=== PATIENT | female | born 1950 | race Caucasian/White ===

== ENCOUNTER 2016-12-12 09:57 | Inpatient (IN) | payer MEDICARE ==
[2016-12-12] VITALS (7 sets, daily range): BP systolic 99–193; BP diastolic 47–80
[~2016-12-12] VITALS: Ht 157.5 cm; Wt 157.2 kg
[2016-12-12] MEDS ORDERED: FUROSEMIDE 40 MG/4 ML VIAL ONE (10:10)
[2016-12-12 10:26] LABS: BGAS PH 7.34 (7.35-7.45)
[2016-12-12] MEDS ORDERED: ASPIRIN 81 MG TAB.CHEW PO ONE (10:30)
[2016-12-12] MEDS ORDERED: FUROSEMIDE 40 MG/4 ML VIAL IVP ONE (10:30)
--- NOTE | 2016-12-12 10:39 | RAD ---
EXAM: Chest, single view. HISTORY: Shortness of breath. COMPARISON: None. FINDINGS: A frontal view of the chest is obtained. There is mild diffuse lower lobe predominant increased interstitial opacity. There may be trace pleural effusions. There is no pneumothorax. There is enlargement of the cardiac silhouette, a component of which is due to portable technique. There is a cardiac pacemaker with leads in expected position. IMPRESSION: 1. Diffuse lower lobe predominant increased interstitial opacity suggesting trace congestion. The possibility of trace pleural effusions and basilar atelectasis is not excluded. 2. Mild enlargement of the cardiac silhouette, a component of which is likely due to portable technique.
--- NOTE | 2016-12-12 10:43 | EKG ---
[address] [address] Test Date: 2016-12-12 Test Time: 10:41:52 Pat Name: LUIS PISANO Department: Room: Gender: F International Accountant: : 1950 Requested By: CAROLE MCGOWAN Order Number: [id number] Reading MD: Measurements Intervals [place] Rate: 164 P: NM: QRS: -72 QRSD: 218 T: 118 QT: 306 QTc: 510 Interpretive Statements ATRIAL FIB./FLUTTER WITH RAPID VENTRICULAR RESPONSE ABNORMAL LEFT AXIS DEVIATION NON SPECIFIC INTRAVENTRICULAR BLOCK QRS(T) CONTOUR ABNORMALITY CONSISTENT WITH ANTEROLATERAL INFARCT PROBABLY OLD CONSIDER INFERIOR MYOCARDIAL DAMAGE RI6.01 Unconfirmed report No previous ECG available for comparison
--- NOTE | 2016-12-12 10:43 | PHYS DOC ---
General Chief Complaint: SHORTNESS OF BREATH Stated Complaint: DIFFICULTY BREATHING, HX CHF Time Seen by MD: 10:11 Source: patient, EMS Exam Limitations: clinical condition Problems: History of Present Illness Initial Comments Pt is 66/F h/o CHF to ED via EMS for respiratory distress. Pt reports past few weeks she's had increasing lower extremity swelling and mild PEREZ. Pt states that for the past 2 days she's had yellow productive cough , with post-tussive emesis x 1 at home this am. Shortness of breath described as mild last night, this morning developed acute severe SOB. EMS called, and on arrival found pt 84% on RA, improved to 93% with CPAP. Pt changed to 3L O2 NC on ED arrival maintaining sats 93-96%. Denies fever/chills/cp/diaphoresis/ arm or neck symptoms. 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/Duration: getting worse, changing over time Severity: severe Modifying Factors: worse with movement, improves with other Associated Symptoms: cough, malaise, nausea/vomiting, shortness of breath, weakness Allergies: Coded Allergies: codeine (Verified Allergy, Unknown, 08/13/15) prednisone (Verified Adverse Reaction, Intermediate, 08/13/15) Past Medical History Medical History: other (HLP, HTN, CHF, morbid obesity, severe OA involving left hip/right knee, arrhythmia) Surgical History: pacemaker, other (colectomy with colostomy 2nd to enteric- vesicular fistula 2012) Social History Smoker: non-smoker Alcohol: none Drugs: none Review of Systems Constitutional: denies chills, denies diaphoresis, denies fever, malaise, weakness Respiratory: see HPI Cardiovascular: denies chest pain, edema, denies palpitations, denies syncope Gastrointestinal: denies abdominal pain, denies diarrhea, denies nausea, vomiting Genitourinary: denies discharge, denies dysuria, frequency, denies hematuria, denies pain Musculoskeletal: see HPI, denies back pain, denies neck pain Psychiatric/Neurological: denies headache, denies numbness, denies paresthesia Physical Exam General Appearance: severe distress, obese Eyes: bilateral eye normal inspection, bilateral eye PERRL, bilateral eye EOMI Ear, Nose, Throat: hearing grossly normal, normal ENT inspection, normal pharynx Neck: non-tender, supple Respiratory: chest non-tender, respiratory distress, accessory muscle use, other (decreased BS b/l bases with rales b/l, ) Cardiovascular: normal peripheral pulses, regular rate, rhythm Gastrointestinal: non tender, soft Back: no CVA tenderness, no vertebral tenderness Extremities: normal range of motion, no calf tenderness, other (3+ pitting LE edema) Neurologic/Psychiatric: adobe layer helper II-XII nml as tested, no motor/sensory deficits, alert, oriented x 3, other (anxious) Skin: warm/dry, pallor Orders, Labs, Meds EKG: ventricular paced c/w prior study 01/01/11 PATIENT: LUIS PISANO ACCOUNT: [id number] : 1950 LOCATION: ER AGE: 66 SEX: F EXAM STATUS: REG ER ORD. PHYSICIAN: CAROLE MCGOWAN DO REASON: chf PROCEDURE: PORTABLE CHEST 1V EXAM: Chest, single view. HISTORY: Shortness of breath. COMPARISON: None. FINDINGS: A frontal view of the chest is obtained. There is mild diffuse lower lobe predominant increased interstitial opacity. There may be trace pleural effusions. There is no pneumothorax. There is enlargement of the cardiac silhouette, a component of which is due to portable technique. There is a cardiac pacemaker with leads in expected position. IMPRESSION: 1. Diffuse lower lobe predominant increased interstitial opacity suggesting trace congestion. The possibility of trace pleural effusions and basilar atelectasis is not excluded. 2. Mild enlargement of the cardiac silhouette, a component of which is likely due to portable technique. DICTATED AND SIGNED BY: VASILIY GALLO MD DATE: 12/12/16 1035 CC: LUIS BADILLO MD; CAROLE MCGOWAN DO ~ ABG: ph 7.337, pCO2 43, pO2 80, HCO3 23.1, sat 95% fiO2 36 d-dimer 1.42, BUN 26, Cr 1.3, Trop I 0.018, BNP 659, UA unremarkable Pt arrived to ED in respiratory distress, duoneb/lasix 40mg IV on arrival with > 1500cc urine output. Pt feeling much better after diuresis, breath sounds improved and pt maintains >90% on room air. I discussed pt with Dr Hays who accepts ICU admission for further serial lab monitoring, diuresis, DVT workup. IMPRESSIONS: CHF exacerbation Respiratory distress ARF elevated d-dimer morbid obesity Departure Disposition: ADMITTED INPATIENT Diagnosis: CHF exacerbation, respiratory distress, ARF Condition: STABLE Additional Instructions: ICU admission Dr Hays is accepting. CAROLE MCGOWAN DO December 12, 2016 10:43
[2016-12-12] MEDS ORDERED: IPRATRPIUM/ALBUTEROL 0.5/2.5MG 3 ML NEBU. NEB ONE (11:15)
[2016-12-12 11:20] LABS: BASO % 1 % (0-3); EOS # 0.1 x10^3/uL (0.0-0.7); EOS % 1 % (0-3); HEMATOCRIT 38.3 % (36.0-47.0); HEMOGLOBIN 12.8 g/dL (12.0-15.5); LYMPH # 0.6 x10^3/uL (1.0-4.8); LYMPH % 7 % (24-48); MEAN CORPUSCULAR HEMOGLOBIN 29 pg (25-35); MEAN CORPUSCULAR HGB CONC 34 g/dL (31-37); MEAN CORPUSCULAR VOLUME 87 fL (79-100); MONO # 0.6 x10^3/uL (0.0-1.1); MONO % 6 % (0-9); NEUT # 7.9 x10^3uL (1.8-7.7); NEUT % 86 % (31-73); PLATELET COUNT 177 x10^3/uL (140-400); RED BLOOD COUNT 4.43 x10^6/uL (3.50-5.40); RED CELL DISTRIBUTION WIDTH 14.9 % (11.5-14.5); WHITE BLOOD COUNT 9.2 x10^3/uL (4.0-11.0)
[2016-12-12 11:30] LABS: BACTERIA,URINE 0 /HPF (0-FEW); BILIRUBIN,URINE NEG (NEG); CLARITY,URINE CLEAR; COLOR,URINE STRAW; GLUCOSE,URINE NEG (NEG); NITRITE,URINE NEG (NEG); RBC,URINE OCC /HPF (0-2); SQUAMOUS EPITHELIAL CELL,UR OCC /LPF; UROBILINOGEN,URINE 0.2 mg/dL (0.2 mg/dL); WBC,URINE OCC /HPF (0-4)
[2016-12-12 11:45] LABS: ALBUMIN 3.8 g/dL (3.4-5.0); ALBUMIN/GLOBULIN RATIO 0.9 (1.0-1.7); CALCIUM 9.4 mg/dL (8.5-10.1); CREATININE 1.3 mg/dL (0.6-1.0); GFR 40.9; MAGNESIUM 1.9 mg/dL (1.8-2.4); POTASSIUM 3.5 mmol/L (3.5-5.1); TOTAL BILIRUBIN 0.5 mg/dL (0.2-1.0); TOTAL PROTEIN 8.1 g/dL (6.4-8.2)
--- NOTE | 2016-12-12 12:25 | ACF ---
Admission Criteria Forms HEART FAILURE: COMMON COMPLICATIONS Clinical Indications for Inpatient Care (Place 'X' for any and all applicable criteria): Ongoing inpatient care may be indicated for heart failure with ANY ONE of the following (1)(2)(3)(4)(5): [ ]I. Ongoing need for care for primary condition requiring frequent therapy adjustments because of changes in cardiac function (eg, drug dosage changes for drugs that are renally metabolized) [ ]II. New-onset heart failure [ ]III. Heart failure with decreased urine output not responsive to attempts to optimize volume status [ ]IV. Acute cardiac ischemia causing or associated with failure [X]V. Complications of heart failure, including ANY ONE of the following: [ ]a) Pericardial effusion [ ]b) Symptomatic pleural effusion [ ]c) O2 saturation <90% or PO2 < 60 mm Hg (8.0 kPa) on room air or require baseline supplemental O2 [ ]d) Tachypnea [X]e) Dyspnea [ ]f) Syncope [ ]g) Change in mental status [ ]h) Acute renal insufficiency that is severe (reduction of more than 50% in estimated glomerular filtration rate from baseline) or progressive reduction of more than 25% in estimated glomerular filtration rate from baseline, with creatinine continuing to rise) [ ]i) Hemodynamic instability [ ]j) Anasarca [ ]k) Clinically significant metabolic abnormalities due to heart failure (eg, new-onset metabolic acidosis) Extended stay beyond goal length of stay for primary condition may be needed until ALL of the following are present(1)(3): [ ]a) Stable and effective diuretic regimen established (or patient on stable dialysis regimen if in chronic renal failure) [ ]b) Breathing comfortably at rest [ ]c) Saturation of arterial oxygen greater than 90% or at acceptable baseline [ ]d) Pulmonary edema absent or improved [ ]e) Hemodynamic stability [ ]f) Volume status acceptable on oral medication [ ]g) Peripheral or sacral edema absent or improved [ ]h) Renal function stable and manageable at a lower level of care [ ]i) Complications (eg, pleural effusion) resolved or manageable at a lower level of care [ ]j) Patient or caregiver has received written discharge instructions or educational material addressing activity level, diet, discharge medications, follow-up appointment, weight monitoring, and what to do if symptoms worsen The original [email or web address] content created by [employer] has been revised. The portions of the content which have been revised are identified through the use of italic text or in bold, and [facility] has neither reviewed nor approved the modified material.All other unmodified content is copyright [facility]. Please see references footnoted in the original [facility] edition 2016 Admission Criteria Met?: Yes LEONELA LOPES December 12, 2016 12:25
[2016-12-12] MEDS ORDERED: ONDANSETRON PF 4 MG/2 ML VIAL. IV PRN (13:00)
[2016-12-12] MEDS ORDERED: ACETAMINOPHEN 325 MG TABLET PO PRN (13:00)
[2016-12-12] MEDS ORDERED: CONTRAST GIVEN MC PRN (15:00)
[2016-12-12] MEDS ORDERED: ACET500T68 PO (15:03)
[2016-12-12] MEDS ORDERED: LORA10TA3 PO (15:05)
[2016-12-12] MEDS ORDERED: POTA20TA4 PO (15:06)
[2016-12-12] MEDS ORDERED: FURO-68 PO (15:06)
[2016-12-12] MEDS ORDERED: ATOR20TA58 PO (15:08)
[2016-12-12] MEDS ORDERED: AMIT10TA PO (15:12)
[2016-12-12] MEDS ORDERED: LOSA25TA4 PO (15:12)
[2016-12-12] MEDS ORDERED: IOHEXOL 300 MG/ML 75 ML VIAL. IV ONE (15:15)
[2016-12-12] MEDS ORDERED: AMITRIPTYLINE HCL 10 MG TABLET PO PRN (15:45)
[2016-12-12] MEDS: IPRATRPIUM/ALBUTEROL 0.5/2.5MG 3 ML NEBU. NEB SCH ×2 (16:00→22:24)
[2016-12-12] MEDS ORDERED: ALLO100T PO (16:14)
[2016-12-12] MEDS: ENOXAPARIN ** NOTE DOSE ** SYRINGE SQ SCH (16:24)
[2016-12-12] MEDS ORDERED: LOSARTAN 25 MG TABLET. PO ONE (16:30)
[2016-12-12] MEDS ORDERED: FUROSEMIDE 20 MG/2 ML VIAL IVP SCH (18:00)
--- NOTE | 2016-12-12 18:00 | RAD ---
Carotid doppler ultrasound History: History of pulmonary embolism (no other provided history) Multiple grayscale, color, and duplex spectral analysis waveform sonographic images were acquired of the carotid, subclavian, and vertebral arteries. Comparison: None Findings: RIGHT: PSV cm/sec EDV cm/sec Common carotid artery 58 Maximal internal carotid artery 58 19 External carotid artery 45 Vertebral artery 49 ICA/CCA ratio 1 LEFT: PSV cm/sec EDV cm/sec Common carotid artery 28 Maximum internal carotid artery 60 12 External carotid artery 48 Vertebral artery 21 ICA/CCA ratio 2.1 Velocities used to determine stenosis are known to correlate with NASCET angiographic criteria. There is antegrade flow in the bilateral vertebral arteries. There is tortuosity of the vessels. No significant focal stenosis is demonstrated on grayscale or color images. While there is elevated left ICA to CCA ratio, this is primarily from lower velocity of the left common carotid artery, left internal carotid artery peak systolic velocity not significantly elevated. No significant plaque is demonstrated. Impression: 1. There is no evidence of a hemodynamically significant stenosis. Tortuosity of the vessels limits evaluation. Electronically signed by: Cole Fish MD (12/12/2016 5:56 PM)
--- NOTE | 2016-12-12 18:01 | RAD ---
Bilateral lower extremity venous doppler ultrasound History: Pulmonary embolism Comparison: None Findings: Multiple grayscale, color, and duplex spectral analysis sonographic images were acquired of the bilateral lower extremity veins to evaluate for the presence of DVT. Compression images for exam are limited due to patient's body habitus. There is normal phasicity. Normal color flow and augmentation is demonstrated from the bilateral common femoral to the popliteal veins. There is normal color flow of the proximal greater saphenous and profunda femoris veins. There is normal color flow of segments of the calf veins. There is right popliteal fossa fluid collection on the order of 3.1 x 3.9 x 4.4 cm. Impression: 1. There is no obvious evidence of deep venous thrombosis from the bilateral common femoral to popliteal veins. 2. There is right popliteal fossa fluid collection. Electronically signed by: Cole Fish MD (12/12/2016 5:58 PM)
--- NOTE | 2016-12-12 19:54 | HP ---
ADMIT DATE: 12/12/2016 HISTORY OF PRESENT ILLNESS: The patient is a 66-year-old female patient who came to the Emergency Room complaining of a cough with greenish sputum tinged with blood. She is also complaining of shortness of breath and chest pain. All this started this morning. On arrival to the Emergency Room, she apparently was hypoxic. Her oxygen saturation was 94% on room air and was started on 3 liters of oxygen and her oxygen saturation improved to 96%. Her chest x-ray showed that she has diffuse lower lobe predominantly increased interstitial opacity suggesting trace congestion, the possibility of trace pleural effusion, and basilar atelectasis not excluded. There is also mild enlargement of the cardiac silhouette, although component of which is likely due to portable technique. Her lab work showed that her D-dimer was slightly high at 1.42. She has hemoptysis, chest pain, and shortness of breath, and she apparently has history of PE before diagnosed in 2007 and treated with Coumadin for 2 years. She is mostly wheelchair bound and given her morbid obesity with a body mass index 61 beside that she has poor mobility makes her very high likely to have pulmonary embolism and arrangement has been made for her to have a CT scan of the chest with PE protocol after consulting with the broadcast operations technician regarding their criteria for the safety of contrast dye without slightly in good kidney function. PAST MEDICAL HISTORY: Significant for hypertension, congestive heart failure most likely due to left ventricular diastolic dysfunction. She has complete heart block for which she has a permanent pacemaker. She has severe osteoarthritis of her left hip and right knee joint. She has a history of DVT and pulmonary embolism. PAST SURGICAL HISTORY: Significant for permanent pacemaker implantation, resection of colovesical fistula, and colostomy. ALLERGIES: She is allergic to CODEINE and PREDNISONE. MEDICATIONS: She is currently on following medications: She is on Tylenol 1000 mg 3 times a day, amitriptyline 10 mg at bedtime, atorvastatin 20 mg at bedtime, furosemide 40 mg once a day, loratadine 10 mg once a day, losartan potassium 25 mg once a day and potassium chloride 20 mEq once a day. She is also on allopurinol 100 mg once a day. FAMILY HISTORY: She has 3 sisters, one of them was diagnosed with uterine cancer and renal cell cancer that was resected and her second sister has stage IV breast cancer and third sister apparently healthy. She has 3 brothers, one at age of 68 secondary to surgical complications. The other brother is 70 years old and is known to have hypertension, CVA and motor vehicle accident. He is basically bedridden, has multiple pressure sores, and has brain tumor. Her third brother is still alive and has hypertension. Father at age of 74 because of complication of COPD and mother at the age of 46 because of lung cancer. SOCIAL HISTORY: She is single, never , has no children. She never smoked, does not drink alcohol or use any recreational drugs. 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 REVIEW OF SYSTEMS: The patient denied any blurring of vision, cataract, glaucoma or macular degeneration. Did complain of tinnitus with the right ear. Denied any nosebleeds, stuffy nose, or postnasal drip. Denied any sore throat, sore tongue, toothache, hoarseness of voice or difficulty swallowing. Denied any nausea, vomiting, diarrhea or constipation. Denied any hematemesis, melena, or hematochezia. Denied any dysuria, frequency, or hematuria. She is incontinent of urine and did complain of chest pain, shortness of breath, cough with sputum tinged with blood. She denied any dizziness, lightheadedness, or vertigo. She is mostly wheelchair bound. PHYSICAL EXAMINATION: GENERAL: On arrival to the Emergency Room, she was pale, but not jaundiced, cyanosed. No lymphadenopathy, no thyromegaly. No jugular venous distention. Her left lower extremity seems to be red with more swollen than the right lower extremity. Her heart rate was 80, blood pressure was 187/80, temperature was 98.8, respiratory rate was 26 and oxygen saturation was 96% on 3 liters of oxygen. HEAD, EYES EARS, NOSE AND THROAT: Showed normocephalic, atraumatic. NECK: Supple. HEART: Showed normal first and second heart sounds with no gallop, rub or murmur. CHEST: Clear to auscultation. No crepitation or rhonchi. ABDOMEN: Distended, soft, nontender. No guarding or rigidity. No organomegaly. Hernial orifices intact. Bowel sounds normal. NEUROLOGICAL: She was awake, alert, responding appropriately. All cranial nerves intact. EXTREMITIES: She moves upper extremities to much good extent than lower extremities. She is mostly bed bound and chair bound. She has severe osteoarthritis right knee and left hip joint. LABORATORY DATA: Her lab work on admission showed that her white cell count was 9200, hemoglobin 12.8, hematocrit 38.3, MCV 87, and platelet count of 177,000 with a manual differential showed 86% polymorphs, 7% lymphocytes, and 6% monocytes. His blood gases showed that her pH was 7.34, pCO2 of 43, pO2 of 80, bicarbonate 23, and oxygen saturation was 95% on FiO2 of 36%. Her prothrombin time was 11, INR 1.1, aPTT was 24 and D-dimer was 1.42. Her chemistry showed a serum sodium 139, potassium 3.5, chloride 101, bicarbonate 29, anion gap of 9, BUN 26, creatinine 1.3, estimated GFR was 40 mL per minute. Her glucose was 106, calcium was 9.4, magnesium 1.9. Total bilirubin, AST, ALT, alkaline phosphatase were normal. Her CK was only 87. Beta-natriuretic peptide was slightly high at 659. First set of cardiac enzyme showed 0.018 and total protein was 8.1, albumin was 3.8. Lipase was 96. Her urinalysis was essentially unremarkable and the chest x-ray showed that she has diffuse lower lobe predominant increased interstitial opacities suggesting increased congestion and the probability of trace pleural effusions, and basilar atelectasis not excluded. She has mild enlargement of the cardiac silhouette component of which is likely due to portable technique. ASSESSMENT AND PLAN: The patient was admitted to the ICU. We will start her on Lovenox 1 mg/kg subQ twice a day arrange. I have discussed the abnormal kidney function with the broadcast operations technician according to the criteria it is safe for her to have the contrast dye. She will go ahead and do a CT angio. We will arrange also for the Doppler ultrasound of both lower extremities and will do 2 more sets of cardiac enzyme, consult the well digger and decide on further management accordingly. Her blood pressure is extremely high. I will start her on hydralazine or labetalol IV. I would probably hold her Lasix and losartan and restart them only after will make sure that she does not have any contrast-induced nephropathy. LINDSEY STRONG MD DR: SEBASTIAN/hetal JOB#: [id number] / [id number]
[2016-12-12] MEDS: ATORVASTATIN CALCIUM 20 MG TABLET PO SCH (21:27)
[2016-12-12] MEDS: ACETAMINOPHEN 500 MG TABLET PO SCH (21:27)
[2016-12-13 04:00] VITALS: BP 106/57
[2016-12-13] MEDS: IPRATRPIUM/ALBUTEROL 0.5/2.5MG 3 ML NEBU. NEB SCH ×4 (05:11→20:54)
[2016-12-13 06:14] LABS: BASO % 0 % (0-3); EOS % 0 % (0-3); HEMATOCRIT 34.9 % (36.0-47.0); HEMOGLOBIN 11.7 g/dL (12.0-15.5); LYMPH # 0.8 x10^3/uL (1.0-4.8); LYMPH % 8 % (24-48); MEAN CORPUSCULAR HEMOGLOBIN 29 pg (25-35); MEAN CORPUSCULAR HGB CONC 34 g/dL (31-37); MEAN CORPUSCULAR VOLUME 86 fL (79-100); MONO # 0.7 x10^3/uL (0.0-1.1); MONO % 7 % (0-9); NEUT % 85 % (31-73); PLATELET COUNT 141 x10^3/uL (140-400); RED BLOOD COUNT 4.07 x10^6/uL (3.50-5.40); RED CELL DISTRIBUTION WIDTH 14.8 % (11.5-14.5); WHITE BLOOD COUNT 10.5 x10^3/uL (4.0-11.0)
[2016-12-13 06:17] LABS: ALBUMIN 3.2 g/dL (3.4-5.0); ALBUMIN/GLOBULIN RATIO 0.8 (1.0-1.7); CALCIUM 8.9 mg/dL (8.5-10.1); CREATININE 1.5 mg/dL (0.6-1.0); GFR 34.6; POTASSIUM 3.7 mmol/L (3.5-5.1); TOTAL BILIRUBIN 0.9 mg/dL (0.2-1.0); TOTAL PROTEIN 7.1 g/dL (6.4-8.2)
[2016-12-13] MEDS ORDERED: MULT1TAB52 PO (08:37)
[2016-12-13] MEDS ORDERED: AZEL137S3 NS (08:37)
[2016-12-13] MEDS: ALLOPURINOL 100 MG TABLET. PO SCH (08:46)
[2016-12-13] MEDS: ACETAMINOPHEN 500 MG TABLET PO SCH ×3 (08:47→19:55)
[2016-12-13] MEDS: LOSARTAN 25 MG TABLET. PO SCH (08:47)
[2016-12-13] MEDS: POTASSIUM CHLORIDE 20 MEQ TABLET.ER. PO SCH (08:47)
[2016-12-13] MEDS ORDERED: FUROSEMIDE 40 MG TABLET PO SCH (09:00)
[2016-12-13] MEDS ORDERED: ALLOPURINOL 100 MG TABLET. PO SCH (09:00)
[2016-12-13] MEDS ORDERED: CETIRIZINE HCL 10 MG TABLET PO PRN (09:00)
[2016-12-13 09:05] VITALS: BP 123/48
--- NOTE | 2016-12-13 09:37 | PDOC2 ---
CONSULT Date of Admission DATE: 12/13/16 TIME: 09:36 Reason for Consult: Shortness of breath Referring Physician: Dr. Hays Chief Complaint Shortness of breath Source: Chart review, Patient History of Present Illness 66-year-old female presented with progressive shortness of breath, cough and chest pain that started yesterday morning. Her d-dimer is slightly elevated and she is currently being worked up for pulmonary embolism due to her previous history of PE. Cardiology has been consulted due to slightly elevated BNP level and abnormal chest x-ray findings. Patient described very atypical chest pain not related to exertion or food intake. She denied any palpitations or syncope. She has history of permanent pacemaker implantation in 2007 at [facility]. She has not had any subsequent cardiology follow-up for lack of insurance. Past Medical History Probable sick sinus syndrome s/p permanent pacemaker implantation Hypertension Congestive heart failure most probably chronic diastolic heart failure Osteoarthritis DVT/pulmonary embolism Morbid obesity Past Surgical History Permanent pacemaker implantation Colostomy Resection of colovesical fistula Family History Positive for cancer, hypertension and negative for premature coronary artery disease Social History Patient denied any smoking, alcohol or drug use. Current Medications Current Medications Furosemide (Lasix) 40 mg STK-MED ONCE .ROUTE ; Start 12/12/16 at 10:10; Stop at 10:11; Status DC Furosemide (Lasix) 40 mg 1X ONCE IVP Last administered on 12/12/16 10:21; Start 12/12/16 at 10:30; Stop 12/12/16 at 10:31; Status DC Aspirin (Children'S Aspirin) 324 mg 1X ONCE PO Last administered on 12/12/16 10:30; Start 12/12/16 at 10:30; Stop 12/12/16 at 10:31; Status DC Albuterol/ Ipratropium (Duoneb) 3 ml 1X ONCE NEB Last administered on 11:08; Start 12/12/16 at 11:15; Stop 12/12/16 at 11:16; Status DC Ondansetron HCl (Zofran) 4 mg PRN Q4HRS PRN IV NAUSEA/VOMITING; Start 12/12/16 at 13:00; Stop 12/13/16 at 12:59 Acetaminophen (Tylenol) 650 mg PRN Q4HRS PRN PO FEVER Last administered on 12/12 16:31; Start 12/12/16 at 13:00; Stop 12/13/16 at 12:59 Albuterol/ Ipratropium (Duoneb) 3 ml RTQID NEB Last administered on 12/13/16 05:11; Start 12/12/16 at 16:00 Furosemide (Lasix) 20 mg Q6HRS IVP ; Start 12/12/16 at 18:00; Stop 12/12/16 at 18:00; Status DC Iohexol (Omnipaque 300 Mg/ml) 75 ml 1X ONCE IV ; Start 12/12/16 at 15:15; Stop 12/12/16 at 15:16; Status DC Info (Do NOT chart on this entry -- for MONITORING) 1 each PRN DAILY PRN MC SEE COMMENTS; Start 12/12/16 at 15:00; Stop 12/14/16 at 14:59 Acetaminophen (Tylenol) 1,000 mg TID PO Last administered on 12/13/16 08:47; Start 12/12/16 at 21:00 Amitriptyline HCl (Elavil) 10 mg PRN QHS PRN PO depression; Start 12/12/16 at 15:45 Atorvastatin Calcium (Lipitor) 20 mg QHS PO Last administered on 12/12/16 21: 27; Start 12/12/16 at 21:00 Furosemide (Lasix) 40 mg DAILY PO ; Start 12/13/16 at 09:00; Stop 12/13/16 at 09 :00; Status DC Losartan Potassium (Cozaar) 25 mg DAILY PO Last administered on 12/13/16 08:47 ; Start 12/13/16 at 09:00 Potassium Chloride (Klor-Con) 20 meq DAILY PO Last administered on 12/13/16 08 :47; Start 12/13/16 at 09:00 Cetirizine HCl (ZyrTEC) 10 mg PRN DAILY PRN PO ALLERGIES; Start 12/13/16 at 09: 00 Allopurinol (Zyloprim) 100 mg DAILY PO Last administered on 12/13/16 08:46; Start 12/13/16 at 09:00 Enoxaparin Sodium (Lovenox 150mg Syringe) 150 mg Q24H SQ Last administered on 16:24; Start 12/12/16 at 16:15 Losartan Potassium (Cozaar) 25 mg 1X ONCE PO Last administered on 12/12/16t 16 :30; Start 12/12/16 at 16:30; Stop 12/12/16 at 16:31; Status DC Allopurinol (Zyloprim) 100 mg DAILY PO ; Start 12/13/16 at 09:00; Stop 12/13/16 at 09:00; Status DC Active Scripts Active Reported Allopurinol 100 Mg Tablet 1 Tab PO DAILY Losartan Potassium 25 Mg Tablet 25 Mg PO DAILY Amitriptyline Hcl 10 Mg Tablet 1 Tab PO QHS PRN Atorvastatin Calcium 20 Mg Tablet 1 Tab PO HS Lasix (Furosemide) 40 Mg Tablet 1 Tab PO DAILY Klor-Con M20 (Potassium Chloride) 20 Meq Tab.er.prt 1 Tab PO DAILY Loratadine 10 Mg Tablet 10 Mg PO PRN DAILY PRN Acetaminophen 500 Mg Tablet 1,000 Mg PO TID Allergies: Coded Allergies: codeine (Verified Allergy, Unknown, 08/13/15) prednisone (Verified Adverse Reaction, Intermediate, 08/13/15) PSYCHOLOGICAL ROS: No: Hallucinations Eyes: No: Loss of vision HEENT: No: Epistaxis Respiratory: YES: Cough, Shortness of breath Cardiovascular: yes: Chest Pain Gastrointestinal: No: Vomiting, Melena Neurological: No: Memory Loss, Seizures General: Alert, Oriented X3, No acute distress HEENT: Atraumatic, PERRLA Lungs: Other (scattered basilar crepitations bilaterally) Heart: Regular rate, No murmurs Abdomen: Soft, No tenderness Extremities: No cyanosis Psych/Mental Status: Mental status NL VITALS Vital Signs Date Time Temp Pulse Resp B/P (MAP) Pulse Ox O2 Delivery O2 Flow Rate FiO2 12/13/16 09:05 99.1 81 18 123/48 (73) 97 Nasal Cannula 3.0 Labs Laboratory Tests Test 12/12/16 10:15 12/12/16 10:58 12/12/16 18:00 12/12/16 23:59 Blood Gas pH 7.34 (7.35-7.45) Blood Gas PCO2 43 mmHg (35-45) Blood Gas PO2 80 mmHg (80-100) Blood Gas HCO3 23 mmol/L (22-26) Arterial Bld O2 Saturation (Calc) 95 % (92-99) FiO2 36 % White Blood Count 9.2 x10^3/uL (4.0-11.0) Red Blood Count 4.43 x10^6/uL (3.50-5.40) Hemoglobin 12.8 g/dL (12.0-15.5) Hematocrit 38.3 % (36.0-47.0) Mean Corpuscular Volume 87 fL (79-100) Mean Corpuscular Hemoglobin 29 pg (25-35) Mean Corpuscular Hemoglobin Concent 34 g/dL (31-37) Red Cell Distribution Width 14.9 % (11.5-14.5) Platelet Count 177 x10^3/uL (140-400) Neutrophils (%) (Auto) 86 % (31-73) Lymphocytes (%) (Auto) 7 % (24-48) Monocytes (%) (Auto) 6 % (0-9) Eosinophils (%) (Auto) 1 % (0-3) Basophils (%) (Auto) 1 % (0-3) Neutrophils # (Auto) 7.9 x10^3uL (1.8-7.7) Lymphocytes # (Auto) 0.6 x10^3/uL (1.0-4.8) Monocytes # (Auto) 0.6 x10^3/uL (0.0-1.1) Eosinophils # (Auto) 0.1 x10^3/uL (0.0-0.7) Basophils # (Auto) 0.0 x10^3/uL (0.0-0.2) Prothrombin Time 11.0 SEC (9.4-11.4) Prothromb Time International Ratio 1.1 (0.9-1.1) Activated Partial Thromboplast Time 24 SEC (23-33) D-Dimer (Tracy) 1.42 mg/L (0.00-0.50) Urine Collection Type Unknown Urine Color Straw Urine Clarity Clear Urine pH 6.0 Urine Specific Madeline 1.010 Urine Protein Neg (NEG-TRACE) Urine Glucose (UA) Neg mg/dL (NEG) Urine Ketones (Stick) Neg mg/dL (NEG) Urine Blood Neg (NEG) Urine Nitrite Neg (NEG) Urine Bilirubin Neg (NEG) Urine Urobilinogen Dipstick 0.2 mg/dL (0.2 mg/dL) Urine Leukocyte Esterase Neg (NEG) Urine RBC Occ /HPF (0-2) Urine WBC Occ /HPF (0-4) Urine Squamous Epithelial Cells Occ /LPF Urine Bacteria 0 /HPF (0-FEW) Sodium Level 139 mmol/L (136-145) Potassium Level 3.5 mmol/L (3.5-5.1) Chloride Level 101 mmol/L (98-107) Carbon Dioxide Level 29 mmol/L (21-32) Anion Gap 9 (6-14) Blood Urea Nitrogen 26 mg/dL (7-20) Creatinine 1.3 mg/dL (0.6-1.0) Estimated GFR (Cockcroft-Gault) 40.9 BUN/Creatinine Ratio 20 (6-20) Glucose Level 106 mg/dL (70-99) Calcium Level 9.4 mg/dL (8.5-10.1) Magnesium Level 1.9 mg/dL (1.8-2.4) Total Bilirubin 0.5 mg/dL (0.2-1.0) Aspartate Amino Transf (AST/SGOT) 23 U/L (15-37) Alanine Aminotransferase (ALT/SGPT) 18 U/L (14-59) Alkaline Phosphatase 115 U/L (46-116) Creatine Kinase 87 U/L (26-192) Troponin I Quantitative 0.018 ng/mL (0-0.055) 0.079 ng/mL (0-0.055) 0.060 ng/mL (0-0.055) IP-Vuz-G-Type Natriuretic Peptide 659 pg/mL (0-124) Total Protein 8.1 g/dL (6.4-8.2) Albumin 3.8 g/dL (3.4-5.0) Albumin/Globulin Ratio 0.9 (1.0-1.7) Lipase 98 U/L (73-393) Test 12/13/16 05:25 White Blood Count 10.5 x10^3/uL (4.0-11.0) Red Blood Count 4.07 x10^6/uL (3.50-5.40) Hemoglobin 11.7 g/dL (12.0-15.5) Hematocrit 34.9 % (36.0-47.0) Mean Corpuscular Volume 86 fL (79-100) Mean Corpuscular Hemoglobin 29 pg (25-35) Mean Corpuscular Hemoglobin Concent 34 g/dL (31-37) Red Cell Distribution Width 14.8 % (11.5-14.5) Platelet Count 141 x10^3/uL (140-400) Neutrophils (%) (Auto) 85 % (31-73) Lymphocytes (%) (Auto) 8 % (24-48) Monocytes (%) (Auto) 7 % (0-9) Eosinophils (%) (Auto) 0 % (0-3) Basophils (%) (Auto) 0 % (0-3) Neutrophils # (Auto) 9.0 x10^3uL (1.8-7.7) Lymphocytes # (Auto) 0.8 x10^3/uL (1.0-4.8) Monocytes # (Auto) 0.7 x10^3/uL (0.0-1.1) Eosinophils # (Auto) 0.0 x10^3/uL (0.0-0.7) Basophils # (Auto) 0.0 x10^3/uL (0.0-0.2) Sodium Level 136 mmol/L (136-145) Potassium Level 3.7 mmol/L (3.5-5.1) Chloride Level 101 mmol/L (98-107) Carbon Dioxide Level 26 mmol/L (21-32) Anion Gap 9 (6-14) Blood Urea Nitrogen 29 mg/dL (7-20) Creatinine 1.5 mg/dL (0.6-1.0) Estimated GFR (Cockcroft-Gault) 34.6 BUN/Creatinine Ratio 19 (6-20) Glucose Level 104 mg/dL (70-99) Uric Acid 7.2 mg/dL (2.6-6.0) Calcium Level 8.9 mg/dL (8.5-10.1) Total Bilirubin 0.9 mg/dL (0.2-1.0) Aspartate Amino Transf (AST/SGOT) 19 U/L (15-37) Alanine Aminotransferase (ALT/SGPT) 12 U/L (14-59) Alkaline Phosphatase 87 U/L (46-116) Total Protein 7.1 g/dL (6.4-8.2) Albumin 3.2 g/dL (3.4-5.0) Albumin/Globulin Ratio 0.8 (1.0-1.7) Assessment/Plan 1. Acute hypoxic respiratory failure: BNP slightly elevated but within normal range for her age. Chest x-ray suspicious for trace pulmonary edema but overall clinical picture not consistent with congestive heart failure. Due to her history of DVT/PE that was treated with Coumadin in the past, this is to be ruled out especially in lieu of her elevated d-dimer. Lasix has been held for renal insufficiency. Check 2-D echo to assess left ventricle systolic function. 2. Sick sinus syndrome s/p permanent pacemaker implantation in 2007 without any subsequent follow-up or interrogations. Telemetry showed paced rhythm. We will have [facility] rep check her pacemaker for battery life etc. 3. Accelerated hypertension: Better controlled since admission 4. Hyperlipidemia: Continue statins Thank you for your consultation Problems: FELICE SORIA MD December 13, 2016 09:37
[2016-12-13 15:38] VITALS: BP 137/62
[2016-12-13] MEDS: ENOXAPARIN ** NOTE DOSE ** SYRINGE SQ SCH (16:54)
--- NOTE | 2016-12-13 17:08 | RAD ---
EXAM: No clear ventilation-perfusion scan. HISTORY: Dyspnea. Hemoptysis.. TECHNIQUE: Ventilation images were obtained following the inhalation of 30 mCi xenon-133 gas perfusion images were obtained following the intravenous administration of 5.5 mCi technetium 99m MAA. COMPARISON: Chest radiograph dated 12/12/2016. FINDINGS: There is photopenia overlying the left upper to mid lung on ventilation and perfusion images due to artifact from a cardiac pacemaker generator. There is no evidence of tracer retention on washout ventilation images. There is a prominent cardiac shadow. There is somewhat heterogeneous tracer activity throughout both lungs, a finding which can be seen with chronic obstructive pulmonary disease. There is relative decreased perfusion within the left lung apex and posterior left upper lobe, the appearance of which does not favor pulmonary embolism. IMPRESSION: 1. Low probability for pulmonary embolism. There are areas of relative photopenia within the left lung apex and posterior left upper lobe on perfusion images, the appearance of which does not favor embolism. 2. Focal photopenia overlying the left upper to mid lung due to a cardiac pacemaker generator.
[2016-12-13 19:18] VITALS: BP 147/87
[2016-12-13] MEDS: ATORVASTATIN CALCIUM 20 MG TABLET PO SCH (19:55)
[2016-12-13 22:10] VITALS: BP 137/54
[2016-12-13 22:45] LABS: HEMOGLOBIN 11.5 g/dL (12.0-15.5)
--- NOTE | 2016-12-13 23:26 | RAD ---
CHEST AP ONLY History: COUGHING UP BLOOD Comparison: December 12, 2016 Findings: There is enlargement of the pericardial cardiac silhouette. There is again left electronic cardiac device. There is no pneumothorax or significant dependent pleural fluid. Central pulmonary vasculature remains prominent. No obvious lobar consolidation is identified, limited evaluation of the left lung base due to the cardiac silhouette. There is likely mild atelectasis right lung base. Impression: 1. There is again enlargement of the pericardial cardiac silhouette. There is prominence of the central pulmonary vasculature which may be due to mild central pulmonary edema. There is likely mild atelectasis right lung base. Electronically signed by: Cole Fish MD (12/13/2016 11:23 PM)
[2016-12-14] MEDS: IPRATRPIUM/ALBUTEROL 0.5/2.5MG 3 ML NEBU. NEB SCH ×4 (05:40→20:00)
[2016-12-14 05:47] VITALS: BP 140/63
[2016-12-14] MEDS: ACETAMINOPHEN 500 MG TABLET PO SCH ×3 (05:48→22:22)
--- NOTE | 2016-12-14 05:50 | PN ---
DATE: 12/13/2016 SUBJECTIVE: The patient is sitting slightly propped up in bed, in no apparent distress. She continued to complain of chest pain and chest tightness and wheezing. She has had this another episode of hemoptysis with fresh blood. Denied any further episodes of chills, has had no documented fever. OBJECTIVE: GENERAL: When I examined her, she looked somewhat pale, but no jaundice, cyanosis, or thyromegaly. No jugular distention. No lower limb edema. VITAL SIGNS: Her heart rate was 81, blood pressure 123/48, temperature was 99.1, respiratory rate was 18 and oxygen saturation was 97% on 3 liters of oxygen. HEAD, EYES, EARS, NOSE AND THROAT: Showed normocephalic, atraumatic. NECK: Supple. HEART: Showed normal first and second heart sounds with no gallop, rub or murmur. CHEST: Clear to auscultation. No crepitation or rhonchi. Showed central trachea, equally reduced expansion, reduced air entry, vesicular sounds with a few scattered rhonchi, could not appreciate any crepitation. ABDOMEN: Distended, soft, nontender. NEUROLOGIC: She is awake, alert, responding appropriately. Cranial nerves intact. She moves all extremities without difficulty, although she is mostly bedbound and chair bound. She has severe osteoarthritis of her knees and hip joints. LABORATORY DATA: Her lab work this morning showed a white cell count of 10,500, hemoglobin 11.7, hematocrit 35, MCV 86 and platelet count of 141,000. Her serum sodium was 136, potassium 3.7, chloride 101, bicarbonate 26, anion gap of 9, BUN 29, creatinine 1.5. Estimated GFR was 35 mL per minute. Her glucose was 104. Uric acid was 7.2, calcium was 8.9. Total bilirubin, AST, ALT, alkaline phosphatase were normal. Her total protein was 7.1, albumin was 3.2. ASSESSMENT AND PLAN: This is a 66-year-old morbidly obese female patient with a body mass index 61 kilograms per square meter, who is mostly bedbound, chair bound, came with hypoxia as her oxygen saturation was only 84% at home when emergency medical services found her on room air that increased to 93% on CPAP and she was put on 3 liters of oxygen by nasal cannula and she is maintaining her oxygen there at about 95%. She also complained of chest pain. She has 3 sets of cardiac enzymes and was evaluated by the riprap man, not recommend any further ischemic workup. She has multiple episodes of hemoptysis concerning for pulmonary embolism given the fact that she has also previous history of pulmonary embolism treated with Coumadin for 2 years. Unfortunately, we tried to do CT angio of the chest yesterday and the patient could not lie flat. I explained to the patient that we probably need at least to have a V/Q scan today to confirm or refute the possibility of PE to basically for her to be on lifelong anticoagulation to which she agreed. We have already put in an order for pulmonary ventilation perfusion scan to refute this further. Meanwhile, we will continue with anticoagulation for now, continue with oxygen treatment. She has no fever. No leukocytosis and I have not really started her on antibiotics as I am not convinced that she has pneumonia given her x-ray showing that she has mostly just congestion with trace pleural effusion with mild enlargement of the cardiac silhouette a component of which is likely to be due to portable technique. LINDSEY STRONG MD DR: SEBASTIAN/hetal JOB#: [id number] / [id number]
[2016-12-14] MEDS: ALLOPURINOL 100 MG TABLET. PO SCH (08:23)
[2016-12-14] MEDS: LOSARTAN 25 MG TABLET. PO SCH (08:23)
[2016-12-14] MEDS: POTASSIUM CHLORIDE 20 MEQ TABLET.ER. PO SCH (08:23)
[2016-12-14 11:05] VITALS: BP 138/64
--- NOTE | 2016-12-14 12:36 | PDOC ---
PROGRESS NOTES Assessment 1. Acute hypoxic respiratory failure: Pt not on O2 at home, still requiring O2 here. Pt was hospitalized for a nearly identical presentation in 2013 at [facility] > Diagnosis at that time was CHF, though echo only showed some diastolic dysfunction. CTA at that time was neg for PE. Pt's PE was in 2007, she reports there was no cause found and she was on warfarin for 2 years. Pt does state that she has been stress eating lately as she has had several family members diagnosed with cancer recently, so this could be a flare of DHF. Await echo tomorrow. Cont O2. 2. Hemoptysis: Pt is periodically coughing up some blood-streaked sputum. Source may be due to dry nares and sinuses, though cannot r/o bronchogenic. It is not frothy like we would expect w/ CHF. I would really like to get a CT scan. Fortunately, her CXR is unchanged and her Hgb is stable. I will continue her Lovenox for now since we have not completely ruled out PE, and that is as viable a diagnosis as HF. If CT is negative (if we can get done), then we will d/c Lovenox. VQ and venous dopplers were negative, but D-dimer very high. 3. Hx PE: See above. 4. Morbid obesity, severe: BMI >60. This is likely contributing to her breathing issue. Obesity hypoventilation syndrome and right heart strain are possible contributing factors. 5. Urinary incontinence: Pt has an indwelling santana catheter. She requests that this be left in as she is afraid of the ramifications of not being able to get to the commode. Pt v/u that leaving it in increases her risk of infection, but feels that her risk of falling is higher. 6. DVT proph: Pt on Lovenox. 7. Elevated troponin: Trending down, no sign of ACS. Pt reportedly has had heart cath in past that failed to show any significant disease. I do not have this report, howver. Cardiology following. 8. Disp: Check labs for today, if creat improved will try again to get CTA. Pt may need non-contrast CT given 6 mm lung nodule seen on CTA in 2013. I will order. Problems: Plan of Care: see other orders Subjective Pt states she continues to have occasional blood-streaked sputum. Denies fever or chest pain. States that she feels more comfortable w/ santana catheter. Says humidifier seems to be helping w/ her dry airways. Denies rash or leg pain. Objective Vital Signs Date Time Temp Pulse Resp B/P (MAP) Pulse Ox O2 Delivery O2 Flow Rate FiO2 12/14/16 11:05 98.5 88 19 138/64 (88) 97 Nasal Cannula 3.0 Intake and Output 12/14/16 07:00 Intake Total 1150 ml Output Total 600 ml Balance 550 ml Intake Oral 1150 ml Output Urine Total 600 ml Abdomen: Soft, No tenderness, Other (obese) Heart: Regular rate, Normal S1, Normal S2, No murmurs Extremities: Other (2+ edema bilaterally) General: Alert, Oriented X3, Cooperative, No acute distress HEENT: Atraumatic, PERRLA, EOMI, Mucous membr. moist/pink Lungs: Other (Diminished breath sounds (diffuse), resp effort non-labored, bibasilar rales) Neck: No JVD, No thyromegaly, No LAD Neuro: Strength at 5/5 X4 ext, Sensation intact, Cranial nerves 3-12 NL Psych/Mental Status: Mental status NL, Mood NL Skin: No rashes Review of Relevant I have reviewed the following items devin (where applicable) has been applied. Labs Laboratory Tests Test 12/12/16 14:10 12/12/16 18:00 12/12/16 23:59 12/13/16 05:25 Nasal Screen MRSA (PCR) Negative (Negative) Troponin I Quantitative 0.079 ng/mL (0-0.055) 0.060 ng/mL (0-0.055) White Blood Count 10.5 x10^3/uL (4.0-11.0) Red Blood Count 4.07 x10^6/uL (3.50-5.40) Hemoglobin 11.7 g/dL (12.0-15.5) Hematocrit 34.9 % (36.0-47.0) Mean Corpuscular Volume 86 fL (79-100) Mean Corpuscular Hemoglobin 29 pg (25-35) Mean Corpuscular Hemoglobin Concent 34 g/dL (31-37) Red Cell Distribution Width 14.8 % (11.5-14.5) Platelet Count 141 x10^3/uL (140-400) Neutrophils (%) (Auto) 85 % (31-73) Lymphocytes (%) (Auto) 8 % (24-48) Monocytes (%) (Auto) 7 % (0-9) Eosinophils (%) (Auto) 0 % (0-3) Basophils (%) (Auto) 0 % (0-3) Neutrophils # (Auto) 9.0 x10^3uL (1.8-7.7) Lymphocytes # (Auto) 0.8 x10^3/uL (1.0-4.8) Monocytes # (Auto) 0.7 x10^3/uL (0.0-1.1) Eosinophils # (Auto) 0.0 x10^3/uL (0.0-0.7) Basophils # (Auto) 0.0 x10^3/uL (0.0-0.2) Sodium Level 136 mmol/L (136-145) Potassium Level 3.7 mmol/L (3.5-5.1) Chloride Level 101 mmol/L (98-107) Carbon Dioxide Level 26 mmol/L (21-32) Anion Gap 9 (6-14) Blood Urea Nitrogen 29 mg/dL (7-20) Creatinine 1.5 mg/dL (0.6-1.0) Estimated GFR (Cockcroft-Gault) 34.6 BUN/Creatinine Ratio 19 (6-20) Glucose Level 104 mg/dL (70-99) Uric Acid 7.2 mg/dL (2.6-6.0) Calcium Level 8.9 mg/dL (8.5-10.1) Total Bilirubin 0.9 mg/dL (0.2-1.0) Aspartate Amino Transf (AST/SGOT) 19 U/L (15-37) Alanine Aminotransferase (ALT/SGPT) 12 U/L (14-59) Alkaline Phosphatase 87 U/L (46-116) Total Protein 7.1 g/dL (6.4-8.2) Albumin 3.2 g/dL (3.4-5.0) Albumin/Globulin Ratio 0.8 (1.0-1.7) Test 12/13/16 22:35 Hemoglobin 11.5 g/dL (12.0-15.5) Hematocrit 34.0 % (36.0-47.0) Medications Current Medications Furosemide (Lasix) 40 mg STK-MED ONCE .ROUTE ; Start 12/12/16 at 10:10; Stop at 10:11; Status DC Furosemide (Lasix) 40 mg 1X ONCE IVP Last administered on 12/12/16 10:21; Start 12/12/16 at 10:30; Stop 12/12/16 at 10:31; Status DC Aspirin (Children'S Aspirin) 324 mg 1X ONCE PO Last administered on 12/12/16 10:30; Start 12/12/16 at 10:30; Stop 12/12/16 at 10:31; Status DC Albuterol/ Ipratropium (Duoneb) 3 ml 1X ONCE NEB Last administered on 11:08; Start 12/12/16 at 11:15; Stop 12/12/16 at 11:16; Status DC Ondansetron HCl (Zofran) 4 mg PRN Q4HRS PRN IV NAUSEA/VOMITING; Start 12/12/16 at 13:00; Stop 12/13/16 at 12:59; Status DC Acetaminophen (Tylenol) 650 mg PRN Q4HRS PRN PO FEVER Last administered on 12/12 16:31; Start 12/12/16 at 13:00; Stop 12/13/16 at 12:59; Status DC Albuterol/ Ipratropium (Duoneb) 3 ml RTQID NEB Last administered on 12/13/16 20:54; Start 12/12/16 at 16:00 Furosemide (Lasix) 20 mg Q6HRS IVP ; Start 12/12/16 at 18:00; Stop 12/12/16 at 18:00; Status DC Iohexol (Omnipaque 300 Mg/ml) 75 ml 1X ONCE IV ; Start 12/12/16 at 15:15; Stop 12/12/16 at 15:16; Status DC Info (Do NOT chart on this entry -- for MONITORING) 1 each PRN DAILY PRN MC SEE COMMENTS; Start 12/12/16 at 15:00; Stop 12/14/16 at 14:59 Acetaminophen (Tylenol) 1,000 mg TID PO Last administered on 12/14/16 05:48; Start 12/12/16 at 21:00 Amitriptyline HCl (Elavil) 10 mg PRN QHS PRN PO depression; Start 12/12/16 at 15:45 Atorvastatin Calcium (Lipitor) 20 mg QHS PO Last administered on 12/13/16 19: 55; Start 12/12/16 at 21:00 Furosemide (Lasix) 40 mg DAILY PO ; Start 12/13/16 at 09:00; Stop 12/13/16 at 09 :00; Status DC Losartan Potassium (Cozaar) 25 mg DAILY PO Last administered on 12/14/16 08:23 ; Start 12/13/16 at 09:00 Potassium Chloride (Klor-Con) 20 meq DAILY PO Last administered on 12/14/16 08 :23; Start 12/13/16 at 09:00 Cetirizine HCl (ZyrTEC) 10 mg PRN DAILY PRN PO ALLERGIES; Start 12/13/16 at 09: 00 Allopurinol (Zyloprim) 100 mg DAILY PO Last administered on 12/14/16 08:23; Start 12/13/16 at 09:00 Enoxaparin Sodium (Lovenox 150mg Syringe) 150 mg Q24H SQ Last administered on 16:54; Start 12/12/16 at 16:15 Losartan Potassium (Cozaar) 25 mg 1X ONCE PO Last administered on 12/12/16 16 :30; Start 12/12/16 at 16:30; Stop 12/12/16 at 16:31; Status DC Allopurinol (Zyloprim) 100 mg DAILY PO ; Start 12/13/16 at 09:00; Stop 12/13/16 at 09:00; Status DC Active Scripts Active Reported Allopurinol 100 Mg Tablet 1 Tab PO DAILY Losartan Potassium 25 Mg Tablet 25 Mg PO DAILY Amitriptyline Hcl 10 Mg Tablet 1 Tab PO QHS PRN Atorvastatin Calcium 20 Mg Tablet 1 Tab PO HS Lasix (Furosemide) 40 Mg Tablet 1 Tab PO DAILY Klor-Con M20 (Potassium Chloride) 20 Meq Tab.er.prt 1 Tab PO DAILY Loratadine 10 Mg Tablet 10 Mg PO PRN DAILY PRN Acetaminophen 500 Mg Tablet 1,000 Mg PO TID Vitals/I & O Vital Sign - Last 24 Hours 12/13/16 12/13/16 12/13/16 12/13/16 15:38 19:18 19:42 20:55 Temp 98.8 97.7 Pulse 65 79 Resp 19 28 B/P (MAP) 137/62 (87) 147/87 (107) Pulse Ox 97 98 97 O2 Delivery Nasal Cannula Nasal Cannula Nasal Cannula Nasal Cannula O2 Flow Rate 3.0 3.0 3.0 3.0 12/13/16 12/14/16 12/14/16 12/14/16 22:10 03:07 05:47 08:00 Temp 98.9 Pulse 87 71 73 Resp 16 18 B/P (MAP) 137/54 (81) 140/63 (88) Pulse Ox 96 97 O2 Delivery Nasal Cannula Nasal Cannula Nasal Cannula O2 Flow Rate 3.0 3.0 3.0 12/14/16 12/14/16 08:23 11:05 Temp 98.5 Pulse 73 88 Resp 19 B/P (MAP) 140/63 138/64 (88) Pulse Ox 97 O2 Delivery Nasal Cannula O2 Flow Rate 3.0 Intake and Output 12/13/16 12/13/16 12/14/16 15:00 23:00 07:00 Intake Total 240 ml 360 ml 550 ml Output Total 600 ml Balance 240 ml 360 ml -50 ml Images CXR: There is enlargement of the pericardial cardiac silhouette. There is again left electronic cardiac device. There is no pneumothorax or significant dependent pleural fluid. Central pulmonary vasculature remains prominent. No obvious lobar consolidation is identified, limited evaluation of the left lung base due to the cardiac silhouette. There is likely mild atelectasis right lung base. Impression: 1. There is again enlargement of the pericardial cardiac silhouette. There is prominence of the central pulmonary vasculature which may be due to mild central pulmonary edema. There is likely mild atelectasis right lung base. VQ scan: EXAM: No clear ventilation-perfusion scan. HISTORY: Dyspnea. Hemoptysis.. TECHNIQUE: Ventilation images were obtained following the inhalation of 30 mCi xenon-133 gas perfusion images were obtained following the intravenous administration of 5.5 mCi technetium 99m MAA. COMPARISON: Chest radiograph dated 12/12/2016. FINDINGS: There is photopenia overlying the left upper to mid lung on ventilation and perfusion images due to artifact from a cardiac pacemaker generator. There is no evidence of tracer retention on washout ventilation images. There is a prominent cardiac shadow. There is somewhat heterogeneous tracer activity throughout both lungs, a finding which can be seen with chronic obstructive pulmonary disease. There is relative decreased perfusion within the left lung apex and posterior left upper lobe, the appearance of which does not favor pulmonary embolism. IMPRESSION: 1. Low probability for pulmonary embolism. There are areas of relative photopenia within the left lung apex and posterior left upper lobe on perfusion images, the appearance of which does not favor embolism. 2. Focal photopenia overlying the left upper to mid lung due to a cardiac pacemaker generator. JOSE ANTONIO COLEMAN MD December 14, 2016 12:36
[2016-12-14 13:08] LABS: BASO % 0 % (0-3); EOS # 0.1 x10^3/uL (0.0-0.7); EOS % 1 % (0-3); HEMATOCRIT 34.6 % (36.0-47.0); HEMOGLOBIN 11.6 g/dL (12.0-15.5); LYMPH # 0.4 x10^3/uL (1.0-4.8); LYMPH % 7 % (24-48); MEAN CORPUSCULAR HEMOGLOBIN 29 pg (25-35); MEAN CORPUSCULAR HGB CONC 33 g/dL (31-37); MEAN CORPUSCULAR VOLUME 86 fL (79-100); MONO # 0.5 x10^3/uL (0.0-1.1); MONO % 7 % (0-9); NEUT # 5.9 x10^3uL (1.8-7.7); NEUT % 85 % (31-73); PLATELET COUNT 141 x10^3/uL (140-400); RED BLOOD COUNT 4.02 x10^6/uL (3.50-5.40); RED CELL DISTRIBUTION WIDTH 14.8 % (11.5-14.5); WHITE BLOOD COUNT 6.9 x10^3/uL (4.0-11.0)
[2016-12-14 13:13] LABS: CREATININE 1.4 mg/dL (0.6-1.0); GFR 37.5; POTASSIUM 3.9 mmol/L (3.5-5.1)
[2016-12-14 15:58] VITALS: BP 121/75
[2016-12-14] MEDS: ENOXAPARIN ** NOTE DOSE ** SYRINGE SQ SCH (17:15)
[2016-12-14 18:18] VITALS: BP 124/51
[2016-12-14 19:53] VITALS: BP 134/63
[2016-12-14] MEDS: ATORVASTATIN CALCIUM 20 MG TABLET PO SCH (22:19)
[2016-12-15 00:32] VITALS: BP 126/73
[2016-12-15] MEDS: IPRATRPIUM/ALBUTEROL 0.5/2.5MG 3 ML NEBU. NEB SCH ×4 (05:44→21:15)
[2016-12-15 06:01] LABS: BASO % 1 % (0-3); EOS # 0.1 x10^3/uL (0.0-0.7); EOS % 3 % (0-3); HEMOGLOBIN 11.2 g/dL (12.0-15.5); LYMPH # 0.5 x10^3/uL (1.0-4.8); LYMPH % 10 % (24-48); MEAN CORPUSCULAR HEMOGLOBIN 29 pg (25-35); MEAN CORPUSCULAR HGB CONC 33 g/dL (31-37); MEAN CORPUSCULAR VOLUME 87 fL (79-100); MONO # 0.5 x10^3/uL (0.0-1.1); MONO % 12 % (0-9); NEUT # 3.4 x10^3uL (1.8-7.7); NEUT % 74 % (31-73); PLATELET COUNT 141 x10^3/uL (140-400); RED BLOOD COUNT 3.89 x10^6/uL (3.50-5.40); RED CELL DISTRIBUTION WIDTH 14.8 % (11.5-14.5); WHITE BLOOD COUNT 4.5 x10^3/uL (4.0-11.0)
[2016-12-15 06:05] VITALS: BP 144/66
[2016-12-15 06:16] LABS: ALBUMIN 2.8 g/dL (3.4-5.0); ALBUMIN/GLOBULIN RATIO 0.7 (1.0-1.7); CALCIUM 9.1 mg/dL (8.5-10.1); CREATININE 1.3 mg/dL (0.6-1.0); GFR 40.9; POTASSIUM 3.9 mmol/L (3.5-5.1); TOTAL BILIRUBIN 0.6 mg/dL (0.2-1.0); TOTAL PROTEIN 7.1 g/dL (6.4-8.2)
[2016-12-15] MEDS: ALLOPURINOL 100 MG TABLET. PO SCH (08:42)
[2016-12-15] MEDS: POTASSIUM CHLORIDE 20 MEQ TABLET.ER. PO SCH (08:42)
[2016-12-15] MEDS: LOSARTAN 25 MG TABLET. PO SCH (08:43)
[2016-12-15] MEDS: ACETAMINOPHEN 500 MG TABLET PO SCH ×3 (08:43→20:29)
--- NOTE | 2016-12-15 08:55 | RAD ---
CT chest without IV contrast History: Hypoxia. Comparison: None. Technique: Helical CT of the chest was performed without intravenous contrast. Axial, sagittal, and coronal reconstructions were obtained. One or more of the following individualized dose reduction techniques were utilized for the study: Automated exposure control Adjustment of mA and/or kV according to patient's size Use of iterative reconstruction technique. Findings: There is motion artifact at multiple levels which could obscure subtle abnormalities. There is also streak artifact emanating from generator pack and patient's dual-lead pacemaker by left subclavian approach. Visualized thyroid is grossly symmetric. Trachea and mainstem bronchi appear patent. Borderline mediastinal lymphadenopathy is seen. Right lower paratracheal lymph node measures 1.0 cm in short axis. Subcarinal lymph node measures 1.5 cm in short axis. Prevascular lymph nodes measure up to 0.8 cm in short axis. Several lymph nodes demonstrate small calcifications. No cardiac chamber enlargement is seen. No pericardial thickening is identified. No pneumothorax or pleural effusion is identified. Consolidation is seen involving portions of the right lower lobe with adjacent atelectasis. This could represent pneumonia, although atelectasis would be additional possibility. Scattered, lesser areas of groundglass opacity are seen in the left upper lobe, left lower lobe, and right middle lobe, could represent atelectasis versus developing airspace disease. No significant septal thickening to suggest interstitial edema is identified. Degenerative changes are present in spine. Impression: 1. Consolidation is seen involving portions of the right lower lobe, could represent pneumonia and/or atelectasis. Scattered additional areas of groundglass opacity are seen, representing atelectasis versus developing pneumonia. 2. Borderline mediastinal lymph nodes are seen, nonspecific, may be related to old granulomatous disease as several lymph nodes demonstrate calcifications.
--- NOTE | 2016-12-15 09:32 | PDOC ---
PROGRESS NOTES Assessment 1. Acute hypoxic respiratory failure: CT with possible developing pneumonia, mgmt per PCP. Mild systolic dysfunction and moderate diastolic dysfunction, Moderate PHTN with PAS 50 mmHg by echo. VQ low prob. 2. Sick sinus syndrome s/p permanent pacemaker implantation - pacemaker dependant, pacing 98% of time. Device check reveals PAF, without episodes since 06/2016. Impedance, thresholds and sensing within normal limits. 14 mos on battery life. 3. Accelerated hypertension: fair control. monitor and increase losartan as needed. 4. Hyperlipidemia: Continue statins Problems: Subjective no new complaints Objective Echo - Left ventricle systolic function is mildly decreased. The Ejection Fraction is 45-50%. Septal motion suggestive of paced rhythm. Mild global hypokinesis. Suspect moderate LV diastolic dysfunction. There is a pacemaker lead seen in the RV/RA. Doppler and Color Flow revealed mild to moderate tricuspid regurgitation. The PA pressure was estimated at 50 mmHg. tele - v pacing Vital Signs Date Time Temp Pulse Resp B/P (MAP) Pulse Ox O2 Delivery O2 Flow Rate FiO2 12/15/16 08:43 70 144/66 12/15/16 06:05 98.5 18 98 Nasal Cannula 3.0 Intake and Output 12/15/16 07:00 Intake Total 1170 ml Output Total 1350 ml Balance -180 ml Intake Oral 1170 ml Output Urine Total 1350 ml Abdomen: Normal bowel sounds, Soft Heart: Regular rate, Normal S1, Normal S2, Other (+systolic murmur, no gallops , clicks or rubs) Extremities: No cyanosis, Other (2+edema) General: Alert, Cooperative, No acute distress Lungs: Other (decreased bilaterally) Neck: No JVD, Other (no HJR, No bruits) Neuro: Normal speech, Strength at 5/5 X4 ext Psych/Mental Status: Mental status NL, Mood NL Review of Relevant I have reviewed the following items devin (where applicable) has been applied. Labs Laboratory Tests Test 12/13/16 22:35 12/14/16 12:58 12/15/16 05:38 Hemoglobin 11.5 g/dL (12.0-15.5) 11.6 g/dL (12.0-15.5) 11.2 g/dL (12.0-15.5) Hematocrit 34.0 % (36.0-47.0) 34.6 % (36.0-47.0) 34.0 % (36.0-47.0) White Blood Count 6.9 x10^3/uL (4.0-11.0) 4.5 x10^3/uL (4.0-11.0) Red Blood Count 4.02 x10^6/uL (3.50-5.40) 3.89 x10^6/uL (3.50-5.40) Mean Corpuscular Volume 86 fL (79-100) 87 fL (79-100) Mean Corpuscular Hemoglobin 29 pg (25-35) 29 pg (25-35) Mean Corpuscular Hemoglobin Concent 33 g/dL (31-37) 33 g/dL (31-37) Red Cell Distribution Width 14.8 % (11.5-14.5) 14.8 % (11.5-14.5) Platelet Count 141 x10^3/uL (140-400) 141 x10^3/uL (140-400) Neutrophils (%) (Auto) 85 % (31-73) 74 % (31-73) Lymphocytes (%) (Auto) 7 % (24-48) 10 % (24-48) Monocytes (%) (Auto) 7 % (0-9) 12 % (0-9) Eosinophils (%) (Auto) 1 % (0-3) 3 % (0-3) Basophils (%) (Auto) 0 % (0-3) 1 % (0-3) Neutrophils # (Auto) 5.9 x10^3uL (1.8-7.7) 3.4 x10^3uL (1.8-7.7) Lymphocytes # (Auto) 0.4 x10^3/uL (1.0-4.8) 0.5 x10^3/uL (1.0-4.8) Monocytes # (Auto) 0.5 x10^3/uL (0.0-1.1) 0.5 x10^3/uL (0.0-1.1) Eosinophils # (Auto) 0.1 x10^3/uL (0.0-0.7) 0.1 x10^3/uL (0.0-0.7) Basophils # (Auto) 0.0 x10^3/uL (0.0-0.2) 0.0 x10^3/uL (0.0-0.2) Sodium Level 138 mmol/L (136-145) 139 mmol/L (136-145) Potassium Level 3.9 mmol/L (3.5-5.1) 3.9 mmol/L (3.5-5.1) Chloride Level 102 mmol/L (98-107) 103 mmol/L (98-107) Carbon Dioxide Level 27 mmol/L (21-32) 28 mmol/L (21-32) Anion Gap 9 (6-14) 8 (6-14) Blood Urea Nitrogen 25 mg/dL (7-20) 25 mg/dL (7-20) Creatinine 1.4 mg/dL (0.6-1.0) 1.3 mg/dL (0.6-1.0) Estimated GFR (Cockcroft-Gault) 37.5 40.9 Glucose Level 131 mg/dL (70-99) 88 mg/dL (70-99) Calcium Level 9.0 mg/dL (8.5-10.1) 9.1 mg/dL (8.5-10.1) BUN/Creatinine Ratio 19 (6-20) Total Bilirubin 0.6 mg/dL (0.2-1.0) Aspartate Amino Transf (AST/SGOT) 20 U/L (15-37) Alanine Aminotransferase (ALT/SGPT) 18 U/L (14-59) Alkaline Phosphatase 89 U/L (46-116) Total Protein 7.1 g/dL (6.4-8.2) Albumin 2.8 g/dL (3.4-5.0) Albumin/Globulin Ratio 0.7 (1.0-1.7) Medications Current Medications Furosemide (Lasix) 40 mg STK-MED ONCE .ROUTE ; Start 12/12/16 at 10:10; Stop at 10:11; Status DC Furosemide (Lasix) 40 mg 1X ONCE IVP Last administered on 12/12/16 10:21; Start 12/12/16 at 10:30; Stop 12/12/16 at 10:31; Status DC Aspirin (Children'S Aspirin) 324 mg 1X ONCE PO Last administered on 12/12/16 10:30; Start 12/12/16 at 10:30; Stop 12/12/16 at 10:31; Status DC Albuterol/ Ipratropium (Duoneb) 3 ml 1X ONCE NEB Last administered on 11:08; Start 12/12/16 at 11:15; Stop 12/12/16 at 11:16; Status DC Ondansetron HCl (Zofran) 4 mg PRN Q4HRS PRN IV NAUSEA/VOMITING; Start 12/12/16 at 13:00; Stop 12/13/16 at 12:59; Status DC Acetaminophen (Tylenol) 650 mg PRN Q4HRS PRN PO FEVER Last administered on 12/12 16:31; Start 12/12/16 at 13:00; Stop 12/13/16 at 12:59; Status DC Albuterol/ Ipratropium (Duoneb) 3 ml RTQID NEB Last administered on 12/13/16 20:54; Start 12/12/16 at 16:00 Furosemide (Lasix) 20 mg Q6HRS IVP ; Start 12/12/16 at 18:00; Stop 12/12/16 at 18:00; Status DC Iohexol (Omnipaque 300 Mg/ml) 75 ml 1X ONCE IV ; Start 12/12/16 at 15:15; Stop 12/12/16 at 15:16; Status DC Info (Do NOT chart on this entry -- for MONITORING) 1 each PRN DAILY PRN MC SEE COMMENTS; Start 12/12/16 at 15:00; Stop 12/14/16 at 14:59; Status DC Acetaminophen (Tylenol) 1,000 mg TID PO Last administered on 12/15/16 08:43; Start 12/12/16 at 21:00 Amitriptyline HCl (Elavil) 10 mg PRN QHS PRN PO depression Last administered on 12/14/16 22:21; Start 12/12/16 at 15:45 Atorvastatin Calcium (Lipitor) 20 mg QHS PO Last administered on 12/14/16 22: 19; Start 12/12/16 at 21:00 Furosemide (Lasix) 40 mg DAILY PO ; Start 12/13/16 at 09:00; Stop 12/13/16 at 09 :00; Status DC Losartan Potassium (Cozaar) 25 mg DAILY PO Last administered on 12/15/16 08:43 ; Start 12/13/16 at 09:00 Potassium Chloride (Klor-Con) 20 meq DAILY PO Last administered on 12/15/16 08 :42; Start 12/13/16 at 09:00 Cetirizine HCl (ZyrTEC) 10 mg PRN DAILY PRN PO ALLERGIES; Start 12/13/16 at 09: 00 Allopurinol (Zyloprim) 100 mg DAILY PO Last administered on 12/15/16 08:42; Start 12/13/16 at 09:00 Enoxaparin Sodium (Lovenox 150mg Syringe) 150 mg Q24H SQ Last administered on 17:15; Start 12/12/16 at 16:15 Losartan Potassium (Cozaar) 25 mg 1X ONCE PO Last administered on 12/12/16 16 :30; Start 12/12/16 at 16:30; Stop 12/12/16 at 16:31; Status DC Allopurinol (Zyloprim) 100 mg DAILY PO ; Start 12/13/16 at 09:00; Stop 12/13/16 at 09:00; Status DC Active Scripts Active Reported Allopurinol 100 Mg Tablet 1 Tab PO DAILY Losartan Potassium 25 Mg Tablet 25 Mg PO DAILY Amitriptyline Hcl 10 Mg Tablet 1 Tab PO QHS PRN Atorvastatin Calcium 20 Mg Tablet 1 Tab PO HS Lasix (Furosemide) 40 Mg Tablet 1 Tab PO DAILY Klor-Con M20 (Potassium Chloride) 20 Meq Tab.er.prt 1 Tab PO DAILY Loratadine 10 Mg Tablet 10 Mg PO PRN DAILY PRN Acetaminophen 500 Mg Tablet 1,000 Mg PO TID Vitals/I & O Vital Sign - Last 24 Hours 12/14/16 12/14/16 12/14/16 12/14/16 11:05 15:58 18:18 19:30 Temp 98.5 98.2 98.6 Pulse 88 98 73 Resp 19 24 23 B/P (MAP) 138/64 (88) 121/75 (90) 124/51 (75) Pulse Ox 97 97 98 O2 Delivery Nasal Cannula Nasal Cannula Nasal Cannula Nasal Cannula O2 Flow Rate 3.0 3.0 3.0 3.0 12/14/16 12/15/16 12/15/16 12/15/16 19:53 00:32 04:04 06:05 Temp 97.5 98.5 Pulse 72 74 66 70 Resp 19 20 18 B/P (MAP) 134/63 (86) 126/73 (90) 144/66 (92) Pulse Ox 96 95 98 O2 Delivery Nasal Cannula Nasal Cannula Nasal Cannula O2 Flow Rate 3.0 3.0 3.0 12/15/16 08:43 Pulse 70 B/P (MAP) 144/66 Intake and Output 12/14/16 12/14/16 12/15/16 15:00 23:00 07:00 Intake Total 480 ml 440 ml 250 ml Output Total 750 ml 600 ml Balance 480 ml -310 ml -350 ml ARIAS ANDREW APRN December 15, 2016 09:32
[2016-12-15] MEDS ORDERED: IV NORMAL SALINE 250ML 250 ML ONE (10:38)
--- NOTE | 2016-12-15 11:00 | CARD ---
APPROVED REPORT EXAM: Two-dimensional and M-mode echocardiogram with Doppler and color Doppler. Other Information Quality : Technically Limited Rhythm : PacemakerTechnically limited study due to body habitus. INDICATION Congestive Heart Failure 2D DIMENSIONS RVDd2.9 (2.9-3.5cm)Left Atrium(2D)3.9 (1.6-4.0cm) IVSd1.3 (0.7-1.1cm)Aortic Root(2D)2.6 (2.0-3.7cm) LVDd4.6 (3.9-5.9cm)LVOT Diameter2.1 (1.8-2.4cm) PWd1.3 (0.7-1.1cm)LVDs3.1 (2.5-4.0cm) FS (%) 32.6 %SV60.2 ml LVEF(%)61.0 (>50%) Aortic Valve AoV Peak Ian.201.1cm/sAoV VTI37.8cm AO Peak GR.16.2mmHgLVOT Peak Ian.105.0cm/s LVOT VTI 20.90cmAO Mean GR.9mmHg PALMER (VMAX)1.52qj4UME (VTI)1.95cm2 Mitral Valve MV E Alusgltr75.8cm/sMV DECEL [id number] MV A Velocity2.3cm/sE/A Ratio38.6 Tricuspid Valve TR P. [id number]/sRAP [id number] TR Peak Gr.[id number] LEFT VENTRICLE The left ventricle is normal size. There is borderline to mild concentric left ventricular hypertroph y. Left ventricle systolic function is mildly decreased. The Ejection Fraction is 45-50%. Septal dorian on suggestive of paced rhythm. Mild global hypokinesis. Suspect moderate LV diastolic dysfunction. RIGHT VENTRICLE The right ventricle is not well visualized but appears normal in size. The right ventricular systolic function is normal. There is a pacemaker lead seen in the RV/RA. ATRIA The left atrium size is normal. The right atrium is not well visualized but appears normal in size. T he interatrial septum is intact with no evidence for an atrial septal defect or patent foramen ovale as noted on 2-D or Doppler imaging. AORTIC VALVE The aortic valve is normal in structure and function. The aortic valve is trileaflet. Doppler and Col or Flow revealed no significant aortic regurgitation. There is no significant aortic valvular stenosi s. MITRAL VALVE The mitral valve is normal in structure and function. There is no mitral valve stenosis. Doppler and Color Flow revealed no mitral valve regurgitation noted. TRICUSPID VALVE The tricuspid valve is normal in structure. Doppler and Color Flow revealed mild to moderate tricuspi d regurgitation. The PA pressure was estimated at 50 mmHg. There is no tricuspid valve stenosis. PULMONIC VALVE The pulmonic valve is not well visualized. Doppler and Color Flow revealed no pulmonic valvular regur gitation. There is no pulmonic valvular stenosis. GREAT VESSELS The aortic root is normal in size. The IVC is dilated in size and collapses >50% with inspiration. PERICARDIAL EFFUSION There is no evidence of significant pericardial effusion. Critical Notification Critical Value: No <Conclusion> Left ventricle systolic function is mildly decreased. The Ejection Fraction is 45-50%. Septal motion suggestive of paced rhythm. Mild global hypokinesis. Suspect moderate LV diastolic dysfunction. There is a pacemaker lead seen in the RV/RA. Doppler and Color Flow revealed mild to moderate tricuspid regurgitation. The PA pressure was estimat ed at 50 mmHg.
[2016-12-15 11:22] VITALS: BP 127/62
[2016-12-15] MEDS ORDERED: AZITHROMYCIN 500 MG in IV NORMAL SALINE 250ML 250 ML IV SCH (12:00)
[2016-12-15] MEDS: FUROSEMIDE 40 MG/4 ML VIAL IVP SCH (14:55)
[2016-12-15 14:56] VITALS: BP 131/64
--- NOTE | 2016-12-15 18:03 | PN ---
DATE: 12/15/2016 PROBLEMS: 1. Acute hypoxic respiratory failure. 2. Right lower lobe pneumonia. 3. Pulmonary hypertension. 4. Sick sinus syndrome with pacemaker. 5. Morbid obesity. 6. Accelerated hypertension. 7. Hyperlipidemia. NARRATIVE: Assuming the care of this 66-year-old female who was admitted for hypoxia with oxygen saturation of only 84% and chest pain. She is under the care of the machine plug shaper, possibly awaiting the results of her echo. There is also a question about a lung nodule that has not been followed up and she had a CT of the chest this morning showing consolidation in the right lower lobe and some ground glass opacity, additional areas of atelectasis versus pneumonia, borderline mediastinal lymph nodes. The patient has been coughing up some blood-tinged sputum, but we have not had it for analysis. Her nasal screen from MRSA was negative. She also has had elevated troponin and elevated D-dimer, but no evidence of PE. The patient is feeling a little bit better today, but continues to cough. OBJECTIVE: VITAL SIGNS: Temperature 97.1, blood pressure 127/62, pulse 85, respirations 24, pulse ox 96% on room air. Height 62 inches, weight 337 pounds. Intake 1170, output 1350. She is actually up 3 pounds since admission. GENERAL: Color is pale. HEENT: Her tongue was moist. NECK: Supple. LUNGS: With scattered wheezes. CARDIOVASCULAR: Regular rhythm and rate. ABDOMEN: Large and obese, nontender. EXTREMITIES: Without pitting edema. She has a Taylor catheter in place, draining clear yellow urine. LABORATORY DATA: Normal white count. BUN is 25, creatinine is 1.3, albumin 2.8. Chest CT shows the consolidation and the right lower lobe probable pneumonia. Echocardiogram showing left ventricular systolic function mildly decreased, mild global hypokinesis, pacemaker, PA pressure at 50, and mild to moderate tricuspid regurge. PLAN: Add an antibiotic, get a sputum culture if possible. The patient is receiving IV Lasix and see how she is tomorrow. ESPERANZA LUGO DO DR: COREY/hetal JOB#: [id number] / [id number]
[2016-12-15 18:24] VITALS: BP 103/60
[2016-12-15] MEDS: ATORVASTATIN CALCIUM 20 MG TABLET PO SCH (20:32)
[2016-12-15] MEDS: ENOXAPARIN ** NOTE DOSE ** SYRINGE SQ SCH (20:32)
[2016-12-15 21:27] VITALS: BP 141/61
[2016-12-15] MEDS: MELATONIN 3 MG TABLET PO PRN (22:45)
[2016-12-16 01:56] VITALS: BP 134/69
[2016-12-16 05:17] VITALS: BP 144/61
[2016-12-16] MEDS: IPRATRPIUM/ALBUTEROL 0.5/2.5MG 3 ML NEBU. NEB SCH ×4 (05:41→21:10)
[2016-12-16 05:47] LABS: HEMATOCRIT 33.1 % (36.0-47.0); RED BLOOD COUNT 3.82 x10^6/uL (3.50-5.40); RED CELL DISTRIBUTION WIDTH 14.7 % (11.5-14.5); WHITE BLOOD COUNT 4.3 x10^3/uL (4.0-11.0)
[2016-12-16 05:56] LABS: CALCIUM 8.9 mg/dL (8.5-10.1); CREATININE 1.3 mg/dL (0.6-1.0); GFR 40.9; POTASSIUM 4.1 mmol/L (3.5-5.1)
[2016-12-16] MEDS ORDERED: FUROSEMIDE 40 MG/4 ML VIAL IVP ONE (08:30)
[2016-12-16] MEDS: FUROSEMIDE 40 MG/4 ML VIAL IVP SCH (08:47)
[2016-12-16] MEDS: LOSARTAN 25 MG TABLET. PO SCH (08:48)
[2016-12-16] MEDS: ACETAMINOPHEN 500 MG TABLET PO SCH ×3 (08:49→20:23)
[2016-12-16] MEDS: AZITHROMYCIN 250 MG TABLET. PO SCH (08:49)
[2016-12-16] MEDS: POTASSIUM CHLORIDE 20 MEQ TABLET.ER. PO SCH (08:49)
[2016-12-16] MEDS: ALLOPURINOL 100 MG TABLET. PO SCH (08:49)
[2016-12-16] MEDS: ENOXAPARIN ** NOTE DOSE ** SYRINGE SQ SCH ×2 (08:49→20:24)
--- NOTE | 2016-12-16 10:09 | PDOC ---
PROGRESS NOTES Assessment 1. Acute hypoxic respiratory failure: mgmt of pneumonia per PCP. 2. Mild systolic dysfunction and moderate diastolic dysfunction with mild diastolic HF. Continue IV lasix with an eye on renal function. Change to PO in am. 3. Moderate PHTN with PAS 50 mmHg by echo. VQ low prob. nocturnal oximetry tonight with outpatient sleep study if abnormal. 4. Sick sinus syndrome s/p permanent pacemaker implantation - pacemaker dependant, pacing 98% of time. Device check reveals PAF, without episodes since 06/2016. Impedance, thresholds and sensing within normal limits. 14 mos on battery life. Needs new carelink box with wireX for remote transmission. 5. Accelerated hypertension: controlled on current meds. 6. Hyperlipidemia: Continue statins, check lipids Problems: Subjective feeling better, continues to cough, breathing easy, no chest pain or palpitations Objective Vital Signs Date Time Temp Pulse Resp B/P (MAP) Pulse Ox O2 Delivery O2 Flow Rate FiO2 12/16/16 08:48 78 143/80 12/16/16 05:42 95 Room Air 12/16/16 05:17 97.6 18 12/15/16 08:00 3.0 Intake and Output 12/16/16 06:59 Intake Total 2355.21 ml Output Total 2925 ml Balance -569.79 ml Intake Oral 2040 ml IV Total 315.21 ml Output Urine Total 2725 ml Stool Total 200 ml Abdomen: Normal bowel sounds, Soft, No tenderness Heart: Regular rate, Normal S1, Normal S2, Other (no gallops) Extremities: No cyanosis, Normal pulses, Other (1+edema) General: Alert, Oriented X3, Cooperative, No acute distress HEENT: Atraumatic, EOMI Lungs: Other (basilar crackles right>left) Neuro: Normal speech Psych/Mental Status: Mental status NL, Mood NL Review of Relevant I have reviewed the following items devin (where applicable) has been applied. Labs Laboratory Tests Test 12/14/16 12:58 12/15/16 05:38 12/16/16 05:37 White Blood Count 6.9 x10^3/uL (4.0-11.0) 4.5 x10^3/uL (4.0-11.0) 4.3 x10^3/uL (4.0-11.0) Red Blood Count 4.02 x10^6/uL (3.50-5.40) 3.89 x10^6/uL (3.50-5.40) 3.82 x10^6/uL (3.50-5.40) Hemoglobin 11.6 g/dL (12.0-15.5) 11.2 g/dL (12.0-15.5) 11.0 g/dL (12.0-15.5) Hematocrit 34.6 % (36.0-47.0) 34.0 % (36.0-47.0) 33.1 % (36.0-47.0) Mean Corpuscular Volume 86 fL (79-100) 87 fL (79-100) 87 fL (79-100) Mean Corpuscular Hemoglobin 29 pg (25-35) 29 pg (25-35) 29 pg (25-35) Mean Corpuscular Hemoglobin Concent 33 g/dL (31-37) 33 g/dL (31-37) 33 g/dL (31-37) Red Cell Distribution Width 14.8 % (11.5-14.5) 14.8 % (11.5-14.5) 14.7 % (11.5-14.5) Platelet Count 141 x10^3/uL (140-400) 141 x10^3/uL (140-400) 163 x10^3/uL (140-400) Neutrophils (%) (Auto) 85 % (31-73) 74 % (31-73) Lymphocytes (%) (Auto) 7 % (24-48) 10 % (24-48) Monocytes (%) (Auto) 7 % (0-9) 12 % (0-9) Eosinophils (%) (Auto) 1 % (0-3) 3 % (0-3) Basophils (%) (Auto) 0 % (0-3) 1 % (0-3) Neutrophils # (Auto) 5.9 x10^3uL (1.8-7.7) 3.4 x10^3uL (1.8-7.7) Lymphocytes # (Auto) 0.4 x10^3/uL (1.0-4.8) 0.5 x10^3/uL (1.0-4.8) Monocytes # (Auto) 0.5 x10^3/uL (0.0-1.1) 0.5 x10^3/uL (0.0-1.1) Eosinophils # (Auto) 0.1 x10^3/uL (0.0-0.7) 0.1 x10^3/uL (0.0-0.7) Basophils # (Auto) 0.0 x10^3/uL (0.0-0.2) 0.0 x10^3/uL (0.0-0.2) Sodium Level 138 mmol/L (136-145) 139 mmol/L (136-145) 137 mmol/L (136-145) Potassium Level 3.9 mmol/L (3.5-5.1) 3.9 mmol/L (3.5-5.1) 4.1 mmol/L (3.5-5.1) Chloride Level 102 mmol/L (98-107) 103 mmol/L (98-107) 102 mmol/L (98-107) Carbon Dioxide Level 27 mmol/L (21-32) 28 mmol/L (21-32) 26 mmol/L (21-32) Anion Gap 9 (6-14) 8 (6-14) 9 (6-14) Blood Urea Nitrogen 25 mg/dL (7-20) 25 mg/dL (7-20) 29 mg/dL (7-20) Creatinine 1.4 mg/dL (0.6-1.0) 1.3 mg/dL (0.6-1.0) 1.3 mg/dL (0.6-1.0) Estimated GFR (Cockcroft-Gault) 37.5 40.9 40.9 Glucose Level 131 mg/dL (70-99) 88 mg/dL (70-99) 96 mg/dL (70-99) Calcium Level 9.0 mg/dL (8.5-10.1) 9.1 mg/dL (8.5-10.1) 8.9 mg/dL (8.5-10.1) BUN/Creatinine Ratio 19 (6-20) Total Bilirubin 0.6 mg/dL (0.2-1.0) Aspartate Amino Transf (AST/SGOT) 20 U/L (15-37) Alanine Aminotransferase (ALT/SGPT) 18 U/L (14-59) Alkaline Phosphatase 89 U/L (46-116) Total Protein 7.1 g/dL (6.4-8.2) Albumin 2.8 g/dL (3.4-5.0) Albumin/Globulin Ratio 0.7 (1.0-1.7) Magnesium Level 2.0 mg/dL (1.8-2.4) Microbiology 12/15/16 Gram Stain - Final, Complete Medications Current Medications Furosemide (Lasix) 40 mg STK-MED ONCE .ROUTE ; Start 12/12/16 at 10:10; Stop at 10:11; Status DC Furosemide (Lasix) 40 mg 1X ONCE IVP Last administered on 12/12/16 10:21; Start 12/12/16 at 10:30; Stop 12/12/16 at 10:31; Status DC Aspirin (Children'S Aspirin) 324 mg 1X ONCE PO Last administered on 12/12/16 10:30; Start 12/12/16 at 10:30; Stop 12/12/16 at 10:31; Status DC Albuterol/ Ipratropium (Duoneb) 3 ml 1X ONCE NEB Last administered on 11:08; Start 12/12/16 at 11:15; Stop 12/12/16 at 11:16; Status DC Ondansetron HCl (Zofran) 4 mg PRN Q4HRS PRN IV NAUSEA/VOMITING; Start 12/12/16 at 13:00; Stop 12/13/16 at 12:59; Status DC Acetaminophen (Tylenol) 650 mg PRN Q4HRS PRN PO FEVER Last administered on 12/12 16:31; Start 12/12/16 at 13:00; Stop 12/13/16 at 12:59; Status DC Albuterol/ Ipratropium (Duoneb) 3 ml RTQID NEB Last administered on 12/16/16 05:41; Start 12/12/16 at 16:00 Furosemide (Lasix) 20 mg Q6HRS IVP ; Start 12/12/16 at 18:00; Stop 12/12/16 at 18:00; Status DC Iohexol (Omnipaque 300 Mg/ml) 75 ml 1X ONCE IV ; Start 12/12/16 at 15:15; Stop 12/12/16 at 15:16; Status DC Info (Do NOT chart on this entry -- for MONITORING) 1 each PRN DAILY PRN MC SEE COMMENTS; Start 12/12/16 at 15:00; Stop 12/14/16 at 14:59; Status DC Acetaminophen (Tylenol) 1,000 mg TID PO Last administered on 12/16/16 08:49; Start 12/12/16 at 21:00 Amitriptyline HCl (Elavil) 10 mg PRN QHS PRN PO depression Last administered on 12/14/16 22:21; Start 12/12/16 at 15:45 Atorvastatin Calcium (Lipitor) 20 mg QHS PO Last administered on 12/15/16 20: 32; Start 12/12/16 at 21:00 Furosemide (Lasix) 40 mg DAILY PO ; Start 12/13/16 at 09:00; Stop 12/13/16 at 09 :00; Status DC Losartan Potassium (Cozaar) 25 mg DAILY PO Last administered on 12/16/16 08:48 ; Start 12/13/16 at 09:00 Potassium Chloride (Klor-Con) 20 meq DAILY PO Last administered on 12/16/16 08 :49; Start 12/13/16 at 09:00 Cetirizine HCl (ZyrTEC) 10 mg PRN DAILY PRN PO ALLERGIES; Start 12/13/16 at 09: 00 Allopurinol (Zyloprim) 100 mg DAILY PO Last administered on 12/16/16 08:49; Start 12/13/16 at 09:00 Enoxaparin Sodium (Lovenox 150mg Syringe) 150 mg Q24H SQ Last administered on 17:15; Start 12/12/16 at 16:15; Stop 12/15/16 at 13:18; Status DC Losartan Potassium (Cozaar) 25 mg 1X ONCE PO Last administered on 12/12/16 16 :30; Start 12/12/16 at 16:30; Stop 12/12/16 at 16:31; Status DC Allopurinol (Zyloprim) 100 mg DAILY PO ; Start 12/13/16 at 09:00; Stop 12/13/16 at 09:00; Status DC Ceftriaxone Sodium 1 gm/ Sodium Chloride 50 ml @ 100 mls/hr Q24H IV Last administered on 12/15/16 10:41; Start 12/15/16 at 11:00 Azithromycin 500 mg/Sodium Chloride 250 ml @ 250 mls/hr Q24H IV Last administered on 12/15/16 11:51; Start 12/15/16 at 12:00; Stop 12/15/16 at 15:00 ; Status DC Sodium Chloride 250 ml @ As Directed STK-MED ONCE .ROUTE Last administered on 12/15/16 10:38; Start 12/15/16 at 10:38; Stop 12/15/16 at 10:39; Status DC Enoxaparin Sodium (Lovenox 60mg Syringe) 60 mg Q12HR SQ Last administered on 08:49; Start 12/15/16 at 21:00 Azithromycin (Zithromax) 500 mg DAILY PO Last administered on 12/16/16 08:49; Start 12/16/16 at 09:00; Stop 12/17/16 at 09:01 Furosemide (Lasix) 40 mg DAILY IVP Last administered on 12/16/16 08:47; Start 12/15/16 at 15:00 Melatonin 3 mg PRN QHS PRN PO INSOMNIA Last administered on 12/15/16 22:45; Start 12/15/16 at 22:45 Furosemide (Lasix) 40 mg 1X ONCE IVP ; Start 12/16/16 at 08:30; Stop 12/16/16 at 08:31; Status DC Active Scripts Active Reported Allopurinol 100 Mg Tablet 1 Tab PO DAILY Losartan Potassium 25 Mg Tablet 25 Mg PO DAILY Amitriptyline Hcl 10 Mg Tablet 1 Tab PO QHS PRN Atorvastatin Calcium 20 Mg Tablet 1 Tab PO HS Lasix (Furosemide) 40 Mg Tablet 1 Tab PO DAILY Klor-Con M20 (Potassium Chloride) 20 Meq Tab.er.prt 1 Tab PO DAILY Loratadine 10 Mg Tablet 10 Mg PO PRN DAILY PRN Acetaminophen 500 Mg Tablet 1,000 Mg PO TID Vitals/I & O Vital Sign - Last 24 Hours 12/15/16 12/15/16 12/15/16 12/15/16 11:22 11:30 14:56 15:55 Temp 97.1 97.4 Pulse 85 84 Resp 24 37 B/P (MAP) 127/62 (83) 131/64 (86) Pulse Ox 96 97 95 97 O2 Delivery Room Air Room Air Room Air Room Air 12/15/16 12/15/16 12/15/16 12/15/16 18:24 20:30 21:16 21:27 Temp 98.4 98.1 Pulse 81 67 Resp 23 18 B/P (MAP) 103/60 (74) 141/61 (87) Pulse Ox 96 96 96 O2 Delivery Room Air Room Air Room Air Room Air 12/16/16 12/16/16 12/16/16 12/16/16 01:56 05:17 05:42 08:48 Temp 97.6 Pulse 74 65 78 Resp 18 18 B/P (MAP) 134/69 (90) 144/61 (88) 143/80 Pulse Ox 97 95 95 O2 Delivery Room Air Room Air Room Air Intake and Output 12/15/16 12/15/16 12/16/16 14:59 22:59 06:59 Intake Total 915.21 ml 990 ml 450 ml Output Total 2425 ml 500 ml Balance 915.21 ml -1435 ml -50 ml ARIAS ANDREW [employer] December 16, 2016 10:09
[2016-12-16 13:00] VITALS: BP 142/79
[2016-12-16 15:36] VITALS: BP 133/66
[2016-12-16] MEDS: BENZOCAINE/MENTHOL LOZENGE 16'S BOX. PO PRN ×2 (17:03→20:22)
[2016-12-16 20:16] VITALS: BP 155/76
[2016-12-16] MEDS: MELATONIN 3 MG TABLET PO PRN (20:22)
[2016-12-16] MEDS: ATORVASTATIN CALCIUM 20 MG TABLET PO SCH (20:23)
[2016-12-17 01:34] VITALS: BP 144/66
[2016-12-17] MEDS: IPRATRPIUM/ALBUTEROL 0.5/2.5MG 3 ML NEBU. NEB SCH (05:27)
[2016-12-17 06:13] VITALS: BP 158/68
--- NOTE | 2016-12-17 07:37 | PN ---
DATE: 12/12/2016 HOSPITAL PROBLEMS: 1. Acute hypoxic respiratory failure with right lower lobe pneumonia. 2. Mild systolic dysfunction and moderate diastolic dysfunction with mild diastolic heart failure receiving IV Lasix. 3. Moderate pulmonary hypertension. 4. Sick sinus syndrome with permanent pacemaker. 5. Hypertension now controlled. 6. Hyperlipidemia. 7. Morbid obesity. 8. Impaired mobility. 9. DVT prophylaxis. SUBJECTIVE: Doing a little bit better today, still having problems sleeping. Prescribed some melatonin, which helped for about an hour. She had other things ordered, but declined the Benadryl. She has been seen by Cardiology. Echo was back. She does have moderate pulmonary hypertension. She will need to see a lugger as an outpatient and also needs to have a sleep study as I suspect that she most likely has sleep apnea. Discussed with her at length the imperative need to lose weight much as she can with portion control. OBJECTIVE: VITAL SIGNS: Blood pressure 144/61, pulse 65, respirations 18, temperature 97.6, and pulse ox 95% on room air. GENERAL: Resting comfortably. No tachypnea. HEENT: Tongue was moist. NECK: Supple. LUNGS: Clear, inspiratory and expiratory. CARDIOVASCULAR: Regular rhythm and rate. ABDOMEN: Soft and nontender. EXTREMITIES: With 1+ edema. LABORATORY DATA: Laboratory was reviewed. BUN 29 and creatinine 1.3. It is really unchanged. PLAN: One more day of IV antibiotics and IV Lasix. We will need to see a lugger as an outpatient. We will need a sleep study as an outpatient. Again, discussed diet with her and we will plan for discharge tomorrow. ESPERANZA LUGO DO DR: COREY/hetal JOB#: [id number] / [id number]
[2016-12-17] MEDS ORDERED: ALLO100T PO (08:19)
[2016-12-17] MEDS ORDERED: DOXY100T PO (08:22)
[2016-12-17] MEDS: FUROSEMIDE 40 MG/4 ML VIAL IVP SCH (08:31)
[2016-12-17] MEDS: ENOXAPARIN ** NOTE DOSE ** SYRINGE SQ SCH (08:32)
[2016-12-17 08:33] VITALS: BP 158/68
[2016-12-17] MEDS: ALLOPURINOL 100 MG TABLET. PO SCH (08:33)
[2016-12-17] MEDS: LOSARTAN 25 MG TABLET. PO SCH (08:33)
[2016-12-17] MEDS: AZITHROMYCIN 250 MG TABLET. PO SCH (08:33)
[2016-12-17] MEDS: POTASSIUM CHLORIDE 20 MEQ TABLET.ER. PO SCH (08:33)
[2016-12-17] MEDS: ACETAMINOPHEN 500 MG TABLET PO SCH (08:34)
--- NOTE | 2016-12-17 09:17 | PDOC ---
PROGRESS NOTES Assessment 1. Acute hypoxic respiratory failure: multifactorial, mgmt of pneumonia per PCP. 2. Mild systolic dysfunction and moderate diastolic dysfunction with mild diastolic HF. Appears euvolemic currently. 3. Moderate PHTN with PAS 50 mmHg by echo. VQ low prob. + nocturnal hypoxia and probable MARCEL. rec outpatient sleep study. 4. Sick sinus syndrome s/p permanent pacemaker implantation - pacemaker dependant, pacing 98% of time. Device check reveals PAF without EGMs. No episodes since 06/2016. Impedance, thresholds and sensing within normal limits. 14 mos on battery life. Needs new carelink box with wireX for remote transmission. 5. Accelerated hypertension: improved on current meds. monitor outpatient and consider increasing losartan if pressure remains >140 systolic 6. Hyperlipidemia: Continue statins 7. nocturnal hypoxia - suggest home sleep study 8. obesity, weight reduction recommended. Follow up with Dr Farris in February as scheduled Problems: Subjective "ready to go home", no chest pain, breathing improved, no palpitations, lightheadedness or syncope. edema improved. Objective tele v pacing Vital Signs Date Time Temp Pulse Resp B/P (MAP) Pulse Ox O2 Delivery O2 Flow Rate FiO2 12/17/16 08:33 72 158/68 12/17/16 08:08 Room Air 3.0 12/17/16 06:13 97.6 22 95 Intake and Output 12/17/16 06:59 Intake Total 2570 ml Output Total 2750 ml Balance -180 ml Intake Oral 2520 ml IV Total 50 ml Output Urine Total 2750 ml # Voids 1 Abdomen: Normal bowel sounds, Soft, No tenderness Heart: Regular rate, Normal S1, Normal S2 Extremities: No cyanosis, Normal pulses, Other (trace edema) General: Alert, Oriented X3, Cooperative, No acute distress HEENT: Atraumatic, EOMI Lungs: Clear to auscultation, Normal air movement Neuro: Normal speech Psych/Mental Status: Mental status NL, Mood NL Review of Relevant I have reviewed the following items devin (where applicable) has been applied. Labs Laboratory Tests Test 12/16/16 05:37 White Blood Count 4.3 x10^3/uL (4.0-11.0) Red Blood Count 3.82 x10^6/uL (3.50-5.40) Hemoglobin 11.0 g/dL (12.0-15.5) Hematocrit 33.1 % (36.0-47.0) Mean Corpuscular Volume 87 fL (79-100) Mean Corpuscular Hemoglobin 29 pg (25-35) Mean Corpuscular Hemoglobin Concent 33 g/dL (31-37) Red Cell Distribution Width 14.7 % (11.5-14.5) Platelet Count 163 x10^3/uL (140-400) Sodium Level 137 mmol/L (136-145) Potassium Level 4.1 mmol/L (3.5-5.1) Chloride Level 102 mmol/L (98-107) Carbon Dioxide Level 26 mmol/L (21-32) Anion Gap 9 (6-14) Blood Urea Nitrogen 29 mg/dL (7-20) Creatinine 1.3 mg/dL (0.6-1.0) Estimated GFR (Cockcroft-Gault) 40.9 Glucose Level 96 mg/dL (70-99) Calcium Level 8.9 mg/dL (8.5-10.1) Magnesium Level 2.0 mg/dL (1.8-2.4) Triglycerides Level 54 mg/dL (0-150) Cholesterol Level 130 mg/dL (0-200) LDL Cholesterol, Calculated 56 mg/dL (0-100) VLDL Cholesterol, Calculated 10 mg/dL (0-40) Non-HDL Cholesterol Calculated 66 mg/dL (0-129) HDL Cholesterol 64 mg/dL (40-60) Cholesterol/HDL Ratio 2.0 Microbiology 12/15/16 Gram Stain - Final, Complete Medications Current Medications Furosemide (Lasix) 40 mg STK-MED ONCE .ROUTE ; Start 12/12/16 at 10:10; Stop at 10:11; Status DC Furosemide (Lasix) 40 mg 1X ONCE IVP Last administered on 12/12/16 10:21; Start 12/12/16 at 10:30; Stop 12/12/16 at 10:31; Status DC Aspirin (Children'S Aspirin) 324 mg 1X ONCE PO Last administered on 12/12/16 10:30; Start 12/12/16 at 10:30; Stop 12/12/16 at 10:31; Status DC Albuterol/ Ipratropium (Duoneb) 3 ml 1X ONCE NEB Last administered on 11:08; Start 12/12/16 at 11:15; Stop 12/12/16 at 11:16; Status DC Ondansetron HCl (Zofran) 4 mg PRN Q4HRS PRN IV NAUSEA/VOMITING; Start 12/12/16 at 13:00; Stop 12/13/16 at 12:59; Status DC Acetaminophen (Tylenol) 650 mg PRN Q4HRS PRN PO FEVER Last administered on 12/12 16:31; Start 12/12/16 at 13:00; Stop 12/13/16 at 12:59; Status DC Albuterol/ Ipratropium (Duoneb) 3 ml RTQID NEB Last administered on 12/17/16 05 :27; Start 12/12/16 at 16:00 Furosemide (Lasix) 20 mg Q6HRS IVP ; Start 12/12/16 at 18:00; Stop 12/12/16 at 18:00; Status DC Iohexol (Omnipaque 300 Mg/ml) 75 ml 1X ONCE IV ; Start 12/12/16 at 15:15; Stop 12/12/16 at 15:16; Status DC Info (Do NOT chart on this entry -- for MONITORING) 1 each PRN DAILY PRN MC SEE COMMENTS; Start 12/12/16 at 15:00; Stop 12/14/16 at 14:59; Status DC Acetaminophen (Tylenol) 1,000 mg TID PO Last administered on 12/17/16 08:34; Start 12/12/16 at 21:00 Amitriptyline HCl (Elavil) 10 mg PRN QHS PRN PO depression Last administered on 12/14/16 22:21; Start 12/12/16 at 15:45 Atorvastatin Calcium (Lipitor) 20 mg QHS PO Last administered on 12/16/16 20: 23; Start 12/12/16 at 21:00 Furosemide (Lasix) 40 mg DAILY PO ; Start 12/13/16 at 09:00; Stop 12/13/16 at 09 :00; Status DC Losartan Potassium (Cozaar) 25 mg DAILY PO Last administered on 12/17/16 08:33 ; Start 12/13/16 at 09:00 Potassium Chloride (Klor-Con) 20 meq DAILY PO Last administered on 12/17/16 08: 33; Start 12/13/16 at 09:00 Cetirizine HCl (ZyrTEC) 10 mg PRN DAILY PRN PO ALLERGIES; Start 12/13/16 at 09: 00 Allopurinol (Zyloprim) 100 mg DAILY PO Last administered on 12/17/16 08:33; Start 12/13/16 at 09:00 Enoxaparin Sodium (Lovenox 150mg Syringe) 150 mg Q24H SQ Last administered on 17:15; Start 12/12/16 at 16:15; Stop 12/15/16 at 13:18; Status DC Losartan Potassium (Cozaar) 25 mg 1X ONCE PO Last administered on 12/12/16 16 :30; Start 12/12/16 at 16:30; Stop 12/12/16 at 16:31; Status DC Allopurinol (Zyloprim) 100 mg DAILY PO ; Start 12/13/16 at 09:00; Stop 12/13/16 at 09:00; Status DC Ceftriaxone Sodium 1 gm/ Sodium Chloride 50 ml @ 100 mls/hr Q24H IV Last administered on 12/16/16 10:22; Start 12/15/16 at 11:00 Azithromycin 500 mg/Sodium Chloride 250 ml @ 250 mls/hr Q24H IV Last administered on 12/15/16 11:51; Start 12/15/16 at 12:00; Stop 12/15/16 at 15:00 ; Status DC Sodium Chloride 250 ml @ As Directed STK-MED ONCE .ROUTE Last administered on 12/15/16 10:38; Start 12/15/16 at 10:38; Stop 12/15/16 at 10:39; Status DC Enoxaparin Sodium (Lovenox 60mg Syringe) 60 mg Q12HR SQ Last administered on 20:24; Start 12/15/16 at 21:00 Azithromycin (Zithromax) 500 mg DAILY PO Last administered on 12/17/16 08:33; Start 12/16/16 at 09:00; Stop 12/17/16 at 09:01; Status DC Furosemide (Lasix) 40 mg DAILY IVP Last administered on 12/16/16 08:47; Start 12/15/16 at 15:00 Melatonin 3 mg PRN QHS PRN PO INSOMNIA Last administered on 12/16/16 20:22; Start 12/15/16 at 22:45 Furosemide (Lasix) 40 mg 1X ONCE IVP ; Start 12/16/16 at 08:30; Stop 12/16/16 at 08:31; Status DC Throat Lozenges (Cepacol Sore Throat Lozenge) 1 jayda PRN Q2HR PRN PO SORE THROAT Last administered on 12/16/16 20:22; Start 12/16/16 at 16:45 Active Scripts Active Doxycycline Hyclate 100 Mg Tablet 1 Tab PO BID Allopurinol 100 Mg Tablet 2 Tab PO DAILY Reported Losartan Potassium 25 Mg Tablet 25 Mg PO DAILY last dose this morning next dose tomorrow Amitriptyline Hcl 10 Mg Tablet 1 Tab PO QHS PRN last dose last night next dose tonight Atorvastatin Calcium 20 Mg Tablet 1 Tab PO HS last dose last night next dose tonight Lasix (Furosemide) 40 Mg Tablet 1 Tab PO DAILY resume today Klor-Con M20 (Potassium Chloride) 20 Meq Tab.er.prt 1 Tab PO DAILY last dose this morning next dose tomorrow Loratadine 10 Mg Tablet 10 Mg PO PRN DAILY PRN may resume Acetaminophen 500 Mg Tablet 1,000 Mg PO TID last dose this morning next dose this afternoon. Vitals/I & O Vital Sign - Last 24 Hours 12/16/16 12/16/16 12/16/16 12/16/16 11:19 13:00 15:36 16:38 Temp 98.0 98.2 Pulse 78 67 Resp 20 B/P (MAP) 142/79 (100) 133/66 (88) Pulse Ox 92 93 98 99 O2 Delivery Room Air Room Air Nasal Cannula Room Air O2 Flow Rate 3.0 12/16/16 12/16/16 12/16/16 12/17/16 20:16 20:48 21:11 01:34 Temp 98.3 Pulse 76 66 Resp 16 18 B/P (MAP) 155/76 (102) 144/66 (92) Pulse Ox 93 94 98 O2 Delivery Room Air Room Air Room Air Nasal Cannula O2 Flow Rate 2.0 12/17/16 12/17/16 12/17/16 12/17/16 05:29 06:13 08:08 08:33 Temp 97.6 Pulse 72 72 Resp 22 B/P (MAP) 158/68 (98) 158/68 Pulse Ox 97 95 O2 Delivery Room Air Room Air Room Air O2 Flow Rate 3.0 Intake and Output 12/16/16 12/16/16 12/17/16 14:59 22:59 06:59 Intake Total 270 ml 1700 ml 600 ml Output Total 1000 ml 1300 ml 450 ml Balance -730 ml 400 ml 150 ml ARIAS ANDREW APRN Dec 17, 2016 09:16
--- NOTE | 2016-12-17 23:56 | DS ---
DATE OF DISCHARGE: 12/17/2016 DISCHARGE DIAGNOSES: 1. Acute hypoxic respiratory failure secondary to right middle lobe pneumonia. 2. Sleep apnea suspect. 3. Mild diastolic heart failure. 4. Moderate pulmonary hypertension. 5. Sick sinus syndrome, status post permanent pacemaker, pacing 98% of the time. 6. Hypertension, improved on current medication. 7. Hyperlipidemia. 8. Nocturnal hypoxia, needs a full sleep study. 9. Morbid obesity. 10. Impaired mobility 11. DVT prophylaxis. 12. Elevated D-dimer, negative for PE. 13. Hyperuricemia. 14. Chronic kidney disease, stage III. HOSPITAL COURSE: A 66-year-old female admitted by Dr. Jesus Hays with some hemoptysis, greenish sputum, shortness of breath. She was hypoxic on arrival to the Emergency Room. She was found to have an elevated D-dimer; however, CT of the chest is negative, but she was found to have a right lower lobe consolidation, probable pneumonia. The patient had an abnormal nocturnal sleep study and nocturnal sleep evaluation and it is recommended that she have a full sleep study. This was discussed with her. She had a Taylor catheter at some of the time of admission at her request because of her limited mobility. She also had an elevated uric acid without evidence of gout. She received IV antibiotics, breathing treatments, Mucinex. She was seen in consultation by the Employee Benefits Attorney. On the day of admission, she no longer had hemoptysis and was feeling well enough to go home. OBJECTIVE: VITAL SIGNS: Blood pressure 158/68, pulse 72, respirations 22, temperature is 97.6, pulse ox is 95% on room air. GENERAL: Face color is slightly improved, although she is pale. NECK: Supple. LUNGS: Clear in all booker. CARDIOVASCULAR: Regular rhythm and rate. EXTREMITIES: With just a trace of edema. PLAN: The patient will see Dr. Badillo'angela as an outpatient. She needs to have a sleep study done. Her allopurinol was increased due to her elevated uric acid. I think she could benefit from seeing a janitor for pulmonary function tests because of pulmonary hypertension. She will continue with the antibiotics for an additional week. She was strongly encouraged to cut her portions in half and make a concerted effort to lose weight. She will follow up with Dr. Badillo's and type written instructions were given to her. ESPERANZA LUGO DO DR: Maria A JOB#: [id number] / [id number]
== END 2016-12-17 09:50 | disposition home or self-care (01) | DRG 193 ==
LOC: ER 09:57 → ICU 13:24 → 1 SOUTH 12-16 12:45
PROVIDERS: ADMIT Internal Medicine; ATTEND Internal Medicine
DX: J18.9 Pneumonia, unspecified organism (principal); J96.01 Acute respiratory failure with hypoxia; Z68.44 Body mass index [BMI] 60.0-69.9, adult; I13.0 Hypertensive heart and chronic kidney disease with heart failure and stage 1 through stage 4 chronic kidney disease, or unspecified chronic kidney disease; J98.11 Atelectasis; I44.2 Atrioventricular block, complete; R04.2 Hemoptysis; I50.32 Chronic diastolic (congestive) heart failure; E66.01 Morbid (severe) obesity due to excess calories; E78.5 Hyperlipidemia, unspecified; G47.33 Obstructive sleep apnea (adult) (pediatric); N18.3 Chronic kidney disease, stage 3 (moderate); I27.2 Other secondary pulmonary hypertension; I49.5 Sick sinus syndrome; M16.12 Unilateral primary osteoarthritis, left hip; E79.0 Hyperuricemia without signs of inflammatory arthritis and tophaceous disease; F32.9 Major depressive disorder, single episode, unspecified; M17.11 Unilateral primary osteoarthritis, right knee; R32 Unspecified urinary incontinence; Z79.01 Long term (current) use of anticoagulants; Z88.5 Allergy status to narcotic agent; Z88.8 Allergy status to other drugs, medicaments and biological substances; Z80.1 Family history of malignant neoplasm of trachea, bronchus and lung; Z80.3 Family history of malignant neoplasm of breast; Z80.49 Family history of malignant neoplasm of other genital organs; Z80.51 Family history of malignant neoplasm of kidney; Z82.3 Family history of stroke; Z82.49 Family history of ischemic heart disease and other diseases of the circulatory system; Z82.5 Family history of asthma and other chronic lower respiratory diseases; Z86.711 Personal history of pulmonary embolism; Z93.3 Colostomy status; Z95.0 Presence of cardiac pacemaker
CPT/HCPCS: 36415; 51702; 71010; 71250; 78582; 80048; 80053; 80061; 81001; 82550; 82803; 83690; 83735; 83880; 84484; 84550; 85014; 85018; 85027; 85379; 85610; 85730; 87205; 87641; 93005; 93306; 93880; 93970; 94640; 94799; 96374; A9540; A9558; J0456; J0696; J1650; J1940; J7050; J7620; 99285-25

== ENCOUNTER → 2018-03-15 | Outpatient (CLI) | payer MEDICARE ==
[~2018-03-15] MED LIST: ACET500T68 PO; ALLO100T PO; AMIT10TA PO; ATOR20TA58 PO; AZEL137S3 NS; DOXY100T PO; FURO-68 PO; LORA10TA3 PO; LOSA25TA4 PO; MULT1TAB52 PO; POTA20TA4 PO
--- NOTE | 2018-03-15 11:31 | RAD ---
ABDOMEN LTD History: Right upper quadrant pain Comparison: None other than CT exam 03/02/2018 Findings: Multiple sonographic images of the abdomen are submitted. Reportedly exam is limited as patient only able to be in an upright position for exam, limited patient mobility. There is also attenuation by the soft tissues. Pancreas is not well-visualized. Inferior vena cava is poorly visualized. There is a hypoechoic lesion of the visualized liver about 1.8 cm greatest dimension, more likely a cyst. Right lobe of liver is estimated about 16.9 cm. Liver parenchyma is poorly visualized in its entirety. There is likely intraluminal focus of echogenicity in the gallbladder although only visualized on the semiupright position. There is no obvious gallbladder wall thickening or pericholecystic fluid. Right kidney is estimated about 9.8 x 5.4 x 4.7 cm without hydronephrosis. Common bile duct is obscured Impression: 1. Exam is very limited as stated. There is likely cholelithiasis. There is likely cyst of the liver. Electronically signed by: Cole Fish MD (03/15/2018 11:28 AM) [facility]
== END | disposition home or self-care (01) ==
LOC: US 09:14
PROVIDERS: ATTEND Physician Assistant
DX: K76.89 Other specified diseases of liver (principal); I13.0 Hypertensive heart and chronic kidney disease with heart failure and stage 1 through stage 4 chronic kidney disease, or unspecified chronic kidney disease; I50.32 Chronic diastolic (congestive) heart failure; N18.3 Chronic kidney disease, stage 3 (moderate); E78.5 Hyperlipidemia, unspecified; E78.00 Pure hypercholesterolemia, unspecified; Z90.49 Acquired absence of other specified parts of digestive tract; Z86.711 Personal history of pulmonary embolism; Z95.0 Presence of cardiac pacemaker; Z80.49 Family history of malignant neoplasm of other genital organs; Z80.51 Family history of malignant neoplasm of kidney; Z80.3 Family history of malignant neoplasm of breast; Z80.1 Family history of malignant neoplasm of trachea, bronchus and lung; Z82.5 Family history of asthma and other chronic lower respiratory diseases
CPT/HCPCS: 76705

== ENCOUNTER → 2018-06-21 | Outpatient (CLI) | payer MEDICARE ==
[~2018-06-21] MED LIST changes: -LOSA25TA4 PO; +LOSA25TA5 PO
--- NOTE | 2018-06-21 12:53 | CARD ---
MR#: [id number] Date of Study: 06/21/2018 Ordering Physician: FELICE FARRIS, Referring Physician: FELICE FARRIS, Tech: Jeanie Luke APPROVED REPORT EXAM: Two-dimensional and M-mode echocardiogram with Doppler and color Doppler. Other Information Quality : AverageHR: 69bpm INDICATION Cardiomyopathy Surgery/Intervention Pacemaker: RISK FACTORS Hypertension 2D DIMENSIONS RVDd3.2 (2.9-3.5cm)IVSd0.9 (0.7-1.1cm) Aortic Root(2D)3.3 (2.0-3.7cm)LVDd5.7 (3.9-5.9cm) PWd1.1 (0.7-1.1cm)LVDs4.2 (2.5-4.0cm) FS (%) 26.9 %SV84.3 ml LVEF(%)51.8 (>50%) Aortic Valve AoV Peak Ian.134.4cm/sAoV VTI31.3cm AO Peak GR.7.2mmHgAO Mean GR.5mmHg PALMER (VTI)2.54cm2 Mitral Valve MV E Lvmhvthe43.3cm/sMV E Peak Gr.100mmHg MV DECEL VGIN873gjHU A Mtnxuotk09.0cm/s E/A Ratio0.8 Tricuspid Valve TR P. Rmvdipmv662gr/sRAP DOMSJSWB0rgJi TR Peak Gr.45ygDzYTOF58taZp LEFT VENTRICLE The Left Ventricle is mildly dilated. There is borderline concentric left ventricular hypertrophy. Th e left ventricular systolic function is mildly decreased. The Ejection Fraction is 45-50%. Septal mot ion suggestive of pacemaker activation. Transmitral Doppler flow pattern is Grade I-abnormal relaxati on pattern. RIGHT VENTRICLE The right ventricle is normal size. There is normal right ventricular wall thickness. The right ventr icular systolic function is normal. Pacer lead seen in right atrium and ventricle. ATRIA The left atrium size is normal. The right atrium size is normal. The interatrial septum is intact wit h no evidence for an atrial septal defect or patent foramen ovale as noted on 2-D or Doppler imaging. AORTIC VALVE The aortic valve is not well visualized. Doppler and Color Flow revealed trace aortic regurgitation. There is no significant aortic valvular stenosis. MITRAL VALVE The mitral valve is normal in structure and function. There is no mitral valve stenosis. Doppler and Color-flow revealed trace mitral regurgitation. TRICUSPID VALVE The tricuspid valve is not well visualized. Doppler and Color Flow revealed mild tricuspid regurgitat ion with an estimated PAP of 33 mmHg. There is no tricuspid valve stenosis. GREAT VESSELS The aortic root is normal in size. Normal pulmonary venous flow (Doppler). PERICARDIAL EFFUSION There is no evidence of significant pericardial effusion. Critical Notification Critical Value: No <Conclusion> The left ventricular systolic function is mildly decreased. The Ejection Fraction is 45-50%. The left ventricular systolic function is mildly decreased. The Ejection Fraction is 45-50%. Septal motion suggestive of pacemaker activation. Pacer lead seen in right atrium and ventricle. Transmitral Doppler flow pattern is Grade I-abnormal relaxation pattern. Trace mitral regurgitation. Mild tricuspid regurgitation with an estimated PAP of 33 mmHg. There is no evidence of significant pericardial effusion. Signed by : Felice Farris, Electronically Approved : 06/21/2018 12:52:16
== END | disposition home or self-care (01) ==
LOC: ECHO 08:48
PROVIDERS: ATTEND Internal Medicine Cardiovascular Disease
DX: I36.1 Nonrheumatic tricuspid (valve) insufficiency (principal); I10 Essential (primary) hypertension
CPT/HCPCS: 93306

== ENCOUNTER 2018-12-28 07:10 | Emergency (ER) | payer MEDICARE ==
[~2018-12-28] VITALS: Ht 157.5 cm; Wt 238.1 kg
[~2018-12-28 07:10] MED LIST changes: +LOSA25TA11 PO; -LOSA25TA5 PO
--- NOTE | 2018-12-28 07:47 | PHYS DOC ---
Past History Past Medical History: CAD, CHF, High Cholesterol, Hypertension Past Surgical History: Colectomy, Pacemaker, Other Additional Past Surgical Histo: uterine "scraping" Smoking: Non-smoker Alcohol Use: None Drug Use: None Adult General Chief Complaint Chief Complaint: VAGINAL BLEEDING HPI HPI Patient is a 68-year-old female presents with vaginal bleeding. This started approximately 6 months ago, she was seen and evaluated in July and had concrete commitment flu symptoms. She ultimately ended up having a "scraping" procedure of the uterus due to a thickened endometrium. This was performed at [facility]. Since that time she's had intermittent spotting with some cramping every month or so that she relates to being similar to her periods. Over the past several weeks this has gotten worse, she was seen by her primary care physician 5 days ago and started on antibiotics for a urinary tract infection. This morning she had increased bleeding and was passing clots. She denies any fever or weight loss. Nothing makes the symptoms better or worse. She is currently on cephalexin for the urinary tract infection. She denies any back or flank pain. Denies being on any blood thinners.[] Review of Systems Review of Systems Constitutional: Denies fever or chills [] Eyes: Denies change in visual acuity, redness, or eye pain [] HENT: Denies nasal congestion or sore throat [] Respiratory: Denies cough or shortness of breath [] Cardiovascular: No additional information not addressed in HPI [] GI: Denies abdominal pain, nausea, vomiting, bloody stools or diarrhea [] : Denies dysuria or hematuria, see history of present illness [] Musculoskeletal: Denies back pain or joint pain [] Integument: Denies rash or skin lesions [] Neurologic: Denies headache, focal weakness or sensory changes [] Endocrine: Denies polyuria or polydipsia [] All other systems were reviewed and found to be within normal limits, except as documented in this note. Allergies Allergies Allergies Coded Allergies Type Severity Reaction Last Updated Verified codeine Allergy Intermediate 12/15/16 Yes prednisone Adverse Reaction Intermediate 08/13/15 Yes Physical Exam Physical Exam Constitutional: Well developed, well nourished, no acute distress, non-toxic appearance. [] HENT: Normocephalic, atraumatic, bilateral external ears normal, oropharynx moist, no oral exudates, nose normal. [] Eyes: PERRLA, EOMI, conjunctiva normal, no discharge. [] Neck: Normal range of motion, no tenderness, supple, no stridor. [] Cardiovascular:Heart rate regular rhythm, no murmur [] Lungs & Thorax: Bilateral breath sounds clear to auscultation [] Abdomen: Bowel sounds normal, soft, obese, no tenderness, no masses, no pulsatile masses. : EGSUB: normal V/V: blood in vault .Cervix: mild blood from os, no CMT. Bimanual: no performed due to body habitus[] Skin: Warm, dry, no erythema, no rash. [] Back: No tenderness, no CVA tenderness. [] Extremities: No tenderness, no cyanosis, no clubbing, ROM intact, 2+ pretibial edema. [] Neurologic: Alert and oriented X 3, normal motor function, normal sensory function, no focal deficits noted. [] Psychologic: Affect normal, judgement normal, mood normal. [] EKG EKG [] Radiology/Procedures Radiology/Procedures Transvaginal pelvic ultrasound 12/28/2018 CLINICAL HISTORY: Postmenopausal vaginal bleeding. TECHNIQUE: A transvaginal pelvic ultrasound study was performed. Multiple images were obtained. FINDINGS: Comparison study is dated 05/06/2018. The uterus is within normal limits in size. It measures 6.8 x 5.5 x 4.5 cm in longitudinal, transverse, and AP dimensions. The endometrial echo complex is again noted to be thickened measuring 2.4 cm in thickness. Blood products are seen within the inferior aspect of the endometrial canal extending into the cervical canal. No focal abnormality of the uterus is seen. Neither ovary is visualized. No adnexal mass is seen. A small amount of free fluid is seen within pelvis which has decreased since the previous examination. IMPRESSION: The endometrial echo complex remains thickened measuring 2.4 cm in thickness. Blood products are seen within the inferior aspect of the endometrial canal extending into the cervix. Thickening of the endometrial echo complex in a postmenopausal patient could be seen with endometrial hyperplasia, polyps or possibly endometrial carcinoma. Clinical correlation is recommended.[] Course & Med Decision Making Course & Med Decision Making Pertinent Labs and Imaging studies reviewed. (See chart for details) ED course: Patient arrived, was placed in bed, and tolerated exam well. She was transported to and from [facility] with any complications. After the return of the laboratory and imaging findings, these were discussed with the patient who voiced understanding. Consultation was made with Dr. Santamaria at the women's health clinic at [facility]. Discussed patient's care with her nurse practitioner. Arrived at a mutually agreed plan. Patient's questions were answered. She was discharged in improved condition. Medical decision making: Patient has vaginal bleeding without any evidence of significant anemia. Her hemoglobin today is higher than it has been in the past according to the records here at [facility]. There is no evidence of hemodynamic instability. No evidence of significant hemorrhage on physical exam. No evidence of an infectious etiology at this time. Will start patient on Provera 10 mg twice a day for 10 days. Patient will have close follow-up within the next [address] Santamaria's office.[] Dragon Disclaimer Dragon Disclaimer This electronic medical record was generated, in whole or in part, using a voice recognition dictation system. Departure Departure: Impression: Primary Impression: Vaginal bleeding Disposition: 01 HOME, SELF-CARE Condition: IMPROVED Referrals: LUIS ZHOU MD (PCP) Patient Instructions: Uterine Bleeding, Dysfunctional Additional Instructions: Follow-up with Dr. Santamaria within the next 48 hours. Call her office at [phone] or if you have a direct line use that one, when you get home. Your care has been discussed with Dr. Santamaria's nurse practitioner. Take your medicine as prescribed. Return to the ER if any concerns. Scripts Medroxyprogesterone Acetate (PROVERA) 10 Mg Tablet 10 MG PO BID for VAGINAL BLEEDING for 10 Days, #20 TAB Prov: FORTINO FERRARI DO 12/28/18 FORTINO FERRARI DO Dec 28, 2018 07:47
[2018-12-28 08:06] LABS: BASO % 1 % (0-3); EOS % 2 % (0-3); HEMATOCRIT 38.5 % (36.0-47.0); HEMOGLOBIN 12.6 g/dL (12.0-15.5); LYMPH # 0.3 x10^3/uL (1.0-4.8); LYMPH % 10 % (24-48); MEAN CORPUSCULAR HEMOGLOBIN 28 pg (25-35); MEAN CORPUSCULAR HGB CONC 33 g/dL (31-37); MEAN CORPUSCULAR VOLUME 86 fL (79-100); MONO # 0.3 x10^3/uL (0.0-1.1); MONO % 12 % (0-9); NEUT # 2.2 x10^3uL (1.8-7.7); NEUT % 76 % (31-73); PLATELET COUNT 168 x10^3/uL (140-400); WHITE BLOOD COUNT 2.9 x10^3/uL (4.0-11.0)
[2018-12-28 08:19] LABS: ALBUMIN 3.6 g/dL (3.4-5.0); ALBUMIN/GLOBULIN RATIO 0.9 (1.0-1.7); CALCIUM 9.6 mg/dL (8.5-10.1); CREATININE 1.2 mg/dL (0.6-1.0); GFR 44.5; POTASSIUM 4.1 mmol/L (3.5-5.1); TOTAL BILIRUBIN 0.7 mg/dL (0.2-1.0); TOTAL PROTEIN 7.5 g/dL (6.4-8.2)
[2018-12-28 09:00] LABS: BACTERIA,URINE FEW /HPF (0-FEW); BILIRUBIN,URINE NEG (NEG); CLARITY,URINE CLEAR; COLOR,URINE YELLOW; GLUCOSE,URINE NEG (NEG); NITRITE,URINE NEG (NEG); SQUAMOUS EPITHELIAL CELL,UR MANY /LPF; UROBILINOGEN,URINE 0.2 mg/dL (0.2 mg/dL); WBC,URINE RARE /HPF (0-4)
--- NOTE | 2018-12-28 09:21 | RAD ---
Transvaginal pelvic ultrasound 12/28/2018 CLINICAL HISTORY: Postmenopausal vaginal bleeding. TECHNIQUE: A transvaginal pelvic ultrasound study was performed. Multiple images were obtained. FINDINGS: Comparison study is dated 05/06/2018. The uterus is within normal limits in size. It measures 6.8 x 5.5 x 4.5 cm in longitudinal, transverse, and AP dimensions. The endometrial echo complex is again noted to be thickened measuring 2.4 cm in thickness. Blood products are seen within the inferior aspect of the endometrial canal extending into the cervical canal. No focal abnormality of the uterus is seen. Neither ovary is visualized. No adnexal mass is seen. A small amount of free fluid is seen within pelvis which has decreased since the previous examination. IMPRESSION: The endometrial echo complex remains thickened measuring 2.4 cm in thickness. Blood products are seen within the inferior aspect of the endometrial canal extending into the cervix. Thickening of the endometrial echo complex in a postmenopausal patient could be seen with endometrial hyperplasia, polyps or possibly endometrial carcinoma. Clinical correlation is recommended. Electronically signed by: Usama Hoffman MD (12/28/2018 9:18 AM) [facility]
[2018-12-28] MEDS ORDERED: MEDR10TA PO (10:34)
[2018-12-28 10:50] VITALS: BP 128/70
== END 2018-12-28 11:00 | disposition home or self-care (01) ==
LOC: ER 07:10
DX: N93.8 Other specified abnormal uterine and vaginal bleeding (principal); I25.10 Atherosclerotic heart disease of native coronary artery without angina pectoris; I50.9 Heart failure, unspecified; E78.00 Pure hypercholesterolemia, unspecified; I10 Essential (primary) hypertension; Z95.0 Presence of cardiac pacemaker; Z88.5 Allergy status to narcotic agent; Z88.8 Allergy status to other drugs, medicaments and biological substances
CPT/HCPCS: 36415; 76830; 80053; 81001; 84702; 85025; 85610; 87491; 87591; 99285; P9612

== ENCOUNTER → 2019-05-10 | Outpatient (CLI) | payer MEDICARE ==
[~2019-05-10] MED LIST changes: +MEDR10TA PO
--- NOTE | 2019-05-10 14:05 | RAD ---
EXAM: CHEST 2 VIEWS. HISTORY: Shortness of breath. COMPARISON: 12/13/2016, 12/14/2016. FINDINGS: Frontal and lateral views of the chest are obtained. A left-sided pacemaker has its leads in the right atrium and right ventricle. Central pulmonary vasculature is mildly prominent. Opacities in the bases may indicate atelectasis or mild edema. There is no pneumothorax or pleural effusion. The heart is moderately enlarged. IMPRESSION: 1. Correlate for mild volume overload. 2. Moderate cardiomegaly. Electronically signed by: Madiha Mac MD (05/10/2019 2:03 PM) [facility]
== END | disposition home or self-care (01) ==
LOC: DXRAD 13:18
PROVIDERS: ATTEND Nurse Practitioner
DX: I51.7 Cardiomegaly (principal); E87.79 Other fluid overload; Z95.0 Presence of cardiac pacemaker
CPT/HCPCS: 71046

== ENCOUNTER → 2019-06-14 | Outpatient (CLI) | payer MEDICARE ==
[~2019-06-14] MED LIST changes: +IOHEXOL 240 MG/ML 50ML VIAL. ONE; +IOHEXOL 300 MG/ML 75 ML VIAL. IV ONE
--- NOTE | 2019-06-14 13:01 | RAD ---
CT of the abdomen and pelvis with IV contrast compared to similar study dated August 132015 for newly diagnosed endometrial cancer. TECHNIQUE: Contiguous helical 5 mm axial images are obtained from the apex of the diaphragm to the pelvic floor following administration of IV contrast. Sagittal and coronal reformations are evaluated. FINDINGS: It should be noted that there is vascular motion artifact degrading the images and interfering with the depiction of several organs, most notably the ascending colon, the kidneys and the spleen. There are areas of atelectasis or developing infiltrate in both lung bases. In the liver, there is a 1.8 cm circumscribed hypodense lesion anteriorly near the dome which has Hounsfield units consistent with fluid density and likely represents a simple cyst. No suspicious hepatic lesions are identified. No intra or extrahepatic biliary ductal dilatation is seen. Gallbladder is grossly unremarkable. The pancreas, spleen, bilateral adrenal glands, and kidneys are grossly unremarkable. There appears to be an eccentric cyst arising from the inferior pole the right kidney. The left lower quadrant ostomy is present with a small bowel parasternal hernia which is nonincarcerated. There is a rectus diastases with associated periumbilical hernia containing nonincarcerated large bowel. No areas of bowel dilatation or focal bowel wall thickening are identified. Enteric contrast distribution is inhomogeneous however. No free or loculated fluid collections are seen within the abdomen or pelvis. No suspicious adenopathy is identified in the retroperitoneum or mesentery. The urinary bladder is fluid distended and grossly unremarkable. Uterus is identified with an IUD present. No adnexal masses are seen. Evaluation of the cervix is poor with this imaging modality. Several phleboliths are seen in the pelvis. No suspicious osteoblastic or osteolytic bone lesions are identified, though there is severe distortion of the left hip joint with acetabular protrusio and chronic posttraumatic and/or developmental atrophy and sclerosis of the left femoral head. Degenerative changes of the spine are also noted. IMPRESSION: 1. No evidence of metastatic disease within the abdomen and pelvis. 2. Bibasilar atelectasis and/or developing infiltrates in the lungs, left greater than right. 3. Simple hepatic cyst. 4. 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 5. Other chronic changes as described. PQRS Compliance Statement: One or more of the following individualized dose reduction techniques were utilized for this examination: 1. Automated exposure control 2. Adjustment of the mA and/or kV according to patient size 3. Use of iterative reconstruction technique Electronically signed by: Red Schaefer MD (06/14/2019 12:57 PM) [facility]
== END | disposition home or self-care (01) ==
LOC: CT 08:27
PROVIDERS: ATTEND Obstetrics & Gynecology Gynecologic Oncology
DX: C54.1 Malignant neoplasm of endometrium (principal); J98.11 Atelectasis; K76.89 Other specified diseases of liver; Z88.5 Allergy status to narcotic agent; Z88.8 Allergy status to other drugs, medicaments and biological substances
CPT/HCPCS: 74177; Q9967

== ENCOUNTER 2019-08-24 13:45 | Inpatient (IN) | payer MEDICARE, OTHER ==
[~2019-08-24] VITALS: Ht 154.9 cm; Wt 132.4 kg
[~2019-08-24 13:45] MED LIST changes: -IOHEXOL 240 MG/ML 50ML VIAL. ONE; -IOHEXOL 300 MG/ML 75 ML VIAL. IV ONE
--- NOTE | 2019-08-24 14:13 | EKG ---
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
--- NOTE | 2019-08-24 14:21 | PHYS DOC ---
Past History Past Medical History: Cancer, CHF, Hypertension Past Surgical History: Pacemaker, Other Additional Past Surgical Histo: D&C; colon reduction for fistula; colostomy Smoking: Non-smoker Alcohol Use: None Drug Use: None Adult General Chief Complaint Chief Complaint: SHORTNESS OF BREATH [facility] HPI 69-year-old female presents with shortness of breath. The patient has been feeling more short of breath to the usual. When she exerts herself to go from her bed to her commode, she is very short of breath. She usually does not have difficulty with this task. She has had a mild intermittent cough without sputum production. She also feels like she is retaining more fluid in her abdomen and legs. Today she has also had some chest heaviness. All of these things are concerning to her. She has a history of CHF. She is pacer dependent. She also has a fairly recent diagnosis of uterine cancer. She felt like she might of had a fever at home a couple of days ago, but is unsure now. Her thermometer battery . Review of Systems Review of Systems Constitutional: Denies fever or chills [] Eyes: Denies change in visual acuity, redness, or eye pain [] HENT: Denies nasal congestion or sore throat [] Respiratory: Cough and shortness of breath [] Cardiovascular: No additional information not addressed in HPI [] GI: Denies abdominal pain, nausea, vomiting, bloody stools or diarrhea [] : Denies dysuria or hematuria [] Musculoskeletal: Denies back pain or joint pain [] Integument: Denies rash or skin lesions [] Neurologic: Denies headache, focal weakness or sensory changes [] Endocrine: Denies polyuria or polydipsia [] All other systems were reviewed and found to be within normal limits, except as documented in this note. Allergies Allergies Allergies Coded Allergies Type Severity Reaction Last Updated Verified codeine Allergy Intermediate 08/24/19 Yes nitrofurantoin Allergy Unknown 08/24/19 Yes prednisone Adverse Reaction Intermediate 08/24/19 Yes Physical Exam Physical Exam Constitutional: Well developed, morbidly obese, well nourished, no acute distre ss, non-toxic appearance. [] HENT: Normocephalic, atraumatic, bilateral external ears normal, oropharynx mo ist, no oral exudates, nose normal. [] Eyes: PERRLA, EOMI, conjunctiva normal, no discharge. [] Neck: Normal range of motion, no tenderness, supple, no stridor. [] Cardiovascular: Heart rate 67 regular rhythm, no murmur [] Lungs & Thorax: Bilateral breath sounds clear to auscultation [] Abdomen: Bowel sounds normal, soft, no tenderness, colostomy bag with no signs of complication, skin normal.[] Skin: Warm, dry, no erythema, no rash. [] Back: No tenderness, no CVA tenderness. [] Extremities: No tenderness, no cyanosis, no clubbing, ROM intact, 2+ edema bilateral lower extremities[] Neurologic: Alert and oriented X 3, normal motor function, normal sensory function, no focal deficits noted. [] Psychologic: Affect normal, judgement normal, mood normal. [] Current Patient Data Vital Signs Vital Signs Date Time Temp Pulse Resp B/P (MAP) Pulse Ox O2 Delivery O2 Flow Rate FiO2 08/24/19 13:52 98.4 72 20 Room Air EKG EKG Paced rhythm, rate 67, wide QRS, no ST elevation or depression.[] Radiology/Procedures Radiology/Procedures [] Impressions: EXAM: PORTABLE CHEST 1V INDICATION: Shortness of breath. TECHNIQUE: Single portable AP view COMPARISON: 05/10/2019 FINDINGS: The heart is enlarged and unchanged. A left chest left dual-chamber cardiac pacemaker remains present. The great vessels appear unremarkable. There is no hilar or mediastinal mass. Lungs show mild vascular congestion but no focal infiltrates. Trace right pleural effusion is present. No pneumothorax. There are no significant osseous abnormalities. IMPRESSION: Cardiomegaly and mild pulmonary vascular congestion. Query CHF flare. Electronically signed by: Cecile Waller MD (08/24/2019 2:39 PM) [facility] DICTATED AND SIGNED BY: CECILE WALLER MD DATE: 08/24/19 8026 CC: ERIC KAUFMAN DO; LUIS ZHOU MD ~ Course & Med Decision Making Course & Med Decision Making Pertinent Labs and Imaging studies reviewed. (See chart for details) The patient's proBNP is greater than 6000. Her chest x-ray is also suggestive of CHF. Her EKG is unremarkable. Her other labs are unremarkable. Her troponin is within normal range. I will admit her to the hospital for further management. Spoke with Dr. Hays and he has accepted the patient for admission. [] Dragon Disclaimer Dragon Disclaimer This electronic medical record was generated, in whole or in part, using a voice recognition dictation system. The HEART Score for CP Pts HEART Score for Chest Pain: HEART Score for Chest Pain Response (Comments) Value History Moderately Suspicious 1 ECG Nonspecific Repolarizatio 1 Age > 65 2 Risk Factors 1 or 2 Risk Factors 1 Troponin >1-<3x Normal Limit 1 Total 6 Risk Factors: Risk Factors: DM, Current or recent (<one month) smoker, HTN, HLP, family history of CAD, obesity. Risk Scores: Score 0 - 3: 2.5% MACE over next 6 weeks - Discharge Home Score 4 - 6: 20.3% MACE over next 6 weeks - Admit for Clinical Observation Score 7 - 10: 72.7% MACE over next 6 weeks - Early Invasive Strategies Departure Departure: Impression: Primary Impression: CHF exacerbation Disposition: ADMITTED INPATIENT Admitting Physician: Jesus Hays Condition: STABLE Referrals: LUIS ZHOU MD (PCP) Problem Qualifiers Primary Impression: CHF exacerbation Heart failure type: systolic Qualified Codes: I50.23 - Acute on chronic systolic (congestive) heart failure ERIC KAUFMAN DO Aug 24, 2019 14:21
[2019-08-24 14:35] LABS: BASO # 0.1 x10^3/uL (0.0-0.2); BASO % 1 % (0-3); EOS % 1 % (0-3); HEMATOCRIT 39.2 % (36.0-47.0); HEMOGLOBIN 12.7 g/dL (12.0-15.5); LYMPH # 0.2 x10^3/uL (1.0-4.8); LYMPH % 6 % (24-48); MEAN CORPUSCULAR HEMOGLOBIN 29 pg (25-35); MEAN CORPUSCULAR HGB CONC 33 g/dL (31-37); MEAN CORPUSCULAR VOLUME 88 fL (79-100); MONO # 0.4 x10^3/uL (0.0-1.1); MONO % 9 % (0-9); NEUT # 3.7 x10^3uL (1.8-7.7); NEUT % 84 % (31-73); PLATELET COUNT 189 x10^3/uL (140-400); RED BLOOD COUNT 4.44 x10^6/uL (3.50-5.40); RED CELL DISTRIBUTION WIDTH 15.8 % (11.5-14.5); WHITE BLOOD COUNT 4.4 x10^3/uL (4.0-11.0)
--- NOTE | 2019-08-24 14:42 | RAD ---
EXAM: PORTABLE CHEST 1V INDICATION: Shortness of breath. TECHNIQUE: Single portable AP view COMPARISON: 05/10/2019 FINDINGS: The heart is enlarged and unchanged. A left chest left dual-chamber cardiac pacemaker remains present. The great vessels appear unremarkable. There is no hilar or mediastinal mass. Lungs show mild vascular congestion but no focal infiltrates. Trace right pleural effusion is present. No pneumothorax. There are no significant osseous abnormalities. IMPRESSION: Cardiomegaly and mild pulmonary vascular congestion. Query CHF flare. Electronically signed by: Marilee Waller MD (08/24/2019 2:39 PM) [facility]
[2019-08-24 14:47] LABS: CALCIUM 9.6 mg/dL (8.5-10.1); GFR 54.8; POTASSIUM 4.5 mmol/L (3.5-5.1)
[2019-08-24 14:59] LABS: ALBUMIN 3.8 g/dL (3.4-5.0); ALBUMIN/GLOBULIN RATIO 1.1 (1.0-1.7); TOTAL BILIRUBIN 0.8 mg/dL (0.2-1.0); TOTAL PROTEIN 7.3 g/dL (6.4-8.2)
[2019-08-24] MEDS ORDERED: FUROSEMIDE 40 MG/4 ML VIAL IVP ONE ×2 (16:15→19:00)
[2019-08-24 16:34] LABS: BACTERIA,URINE FEW /HPF (0-FEW); BILIRUBIN,URINE NEG (NEG); CLARITY,URINE CLOUDY; COLOR,URINE PINK; GLUCOSE,URINE NEG (NEG); NITRITE,URINE NEG (NEG); RBC,URINE TNTC /HPF (0-2); SQUAMOUS EPITHELIAL CELL,UR OCC /LPF; UROBILINOGEN,URINE 0.2 mg/dL (0.2 mg/dL)
[2019-08-24 17:20] LABS: INFLUENZA A PATIENT NEGATIVE (NEGATIVE); INFLUENZA B PATIENT NEGATIVE (NEGATIVE)
[2019-08-24 18:10] VITALS: BP 179/99
--- NOTE | 2019-08-24 18:11 | NUR ---
The patient, LUIS PISANO, 69 y/o, F admitted by LINDSEY STRONG MD, was given written information regarding hospital policies, unit procedures and contact persons. Valuables were checked and left with patient at bedside. Patient was admitted with diagnosis of CHF. Upon arrival to unit, Patient Blood pressure was 179/99, c/o increased chest pain, thats crushing at times, chest tightness. Patient was not diaphoretic. Dr. Strong notified via telephone, new order for stat troponin received, to notify Dr. Strong of results. Cardiology consult placed. Will continue to monitor.
[2019-08-24] MEDS ORDERED: FERR-36 PO (18:17)
[2019-08-24] MEDS ORDERED: CARV3.12 PO (18:17)
[2019-08-24] MEDS ORDERED: CHOL200078 PO (18:17)
[2019-08-24] MEDS ORDERED: LETR2.5T2 PO (18:17)
--- NOTE | 2019-08-24 18:45 | NUR ---
Dr. Hays notified of results. New orders for nitropaste 1/2 INCH Q 6 HOURS, HOLD IF BP LESS THAN 130, 40 mg IV Lasix NOW, Coreg 3.125mg PO received via telephone.
[2019-08-24 20:15] VITALS: BP 135/81
[2019-08-24] MEDS: CARVEDILOL 3.125 MG TABLET PO SCH (20:24)
[2019-08-24 22:44] VITALS: BP 134/78
[2019-08-25 05:35] VITALS: BP 109/67
[2019-08-25] MEDS: NITROGLYCERIN OINT 1 GM PACKET. TP SCH ×5 (05:35→23:43)
[2019-08-25] MEDS: CARVEDILOL 3.125 MG TABLET PO SCH ×3 (08:00→17:00)
[2019-08-25] MEDS: FERROUS SULFATE 325 MG TABLET. PO SCH ×2 (08:01→20:37)
[2019-08-25] MEDS: ACETAMINOPHEN 500 MG TABLET PO SCH ×3 (08:22→20:39)
[2019-08-25 11:08] VITALS: BP 123/75
[2019-08-25 11:31] VITALS: BP 133/72
[2019-08-25 14:48] VITALS: BP 110/63
--- NOTE | 2019-08-25 15:53 | PDOC2 ---
CONSULT Date of Admission DATE: 08/25/19 TIME: 15:47 Reason for Consult: Congestive heart failure Referring Physician: Dr. Hays Chief Complaint Shortness of breath Source: Chart review, Patient Problem List Problems Medical Problems: (1) CHF exacerbation Status: Acute History of Present Illness 69-year-old female with history of sick sinus syndrome s/p permanent pacemaker implantation and chronic diastolic heart failure presented with progressive shortness of breath and lower extremity edema. She apparently came down with 'cold and chest congestion' recently and has been drinking more fluids than usual. She claimed compliance with medications and denied any excessive salt intake. She also denied any chest pain, palpitations or syncope. Past Medical History Sick sinus syndrome s/p permanent pacemaker implantation Hypertension Chronic diastolic heart failure Osteoarthritis DVT/pulmonary embolism Morbid obesity Recently diagnosed Uterine cancer Past Surgical History Permanent pacemaker implantation Colostomy Resection of colovesical fistula Family History Positive for cancer, hypertension and negative for premature coronary artery disease Social History Patient denied any smoking, alcohol or drug use Current Medications Current Medications Furosemide (Lasix) 40 mg 1X ONCE IVP Last administered on 08/24/19at 16:22; Start 08/24/19 at 16:15; Stop 08/24/19 at 16:16; Status DC Furosemide (Lasix) 40 mg 1X ONCE IVP Last administered on 08/24/19at 20:24; Start 08/24/19 at 19:00; Stop 08/24/19 at 19:01; Status DC Nitroglycerin (Nitro-Bid Oint) 0.5 inch Q6HRS TP Last administered on 08/25/19at 11:38; Start 08/25/19 at 00:00 Carvedilol (Coreg) 3.125 mg BIDWMEALS PO Last administered on 08/24/19at 20:24; Start 08/24/19 at 19:00 Atorvastatin Calcium (Lipitor) 20 mg HS PO ; Start 08/25/19 at 21:00 Ferrous Sulfate (Feosol) 325 mg BID PO Last administered on 08/25/19at 08:01; Start 08/25/19 at 09:00 Acetaminophen (Tylenol) 1,000 mg TID PO Last administered on 08/25/19at 08:22; Start 08/25/19 at 09:00 Active Scripts Active Provera (Medroxyprogesterone Acetate) 10 Mg Tablet 10 Mg PO BID 10 Days Doxycycline Hyclate 100 Mg Tablet 1 Tab PO BID Allopurinol 100 Mg Tablet 2 Tab PO DAILY Reported Vitamin D3 (Cholecalciferol (Vitamin D3)) 2,000 Unit Tab.chew 1 Tab PO DAILY 30 Days Iron (Ferrous Sulfate) 325 Mg Tablet 1 Tab PO BID 30 Days Femara (Letrozole) 2.5 Mg Tablet 1 Tab PO DAILY Coreg (Carvedilol) 3.125 Mg Tablet 3.125 Mg PO BIDWMEALS Losartan Potassium (Losartan Potassium) 25 Mg Tablet 25 Mg PO DAILY last dose this morning next dose tomorrow Amitriptyline Hcl 10 Mg Tablet 1 Tab PO QHS PRN last dose last night next dose tonight Atorvastatin Calcium 20 Mg Tablet 1 Tab PO HS last dose last night next dose tonight Lasix (Furosemide) 40 Mg Tablet 1 Tab PO DAILY resume today Klor-Con M20 (Potassium Chloride) 20 Meq Tab.er.prt 1 Tab PO DAILY last dose this morning next dose tomorrow Loratadine 10 Mg Tablet 10 Mg PO PRN DAILY PRN may resume Acetaminophen 500 Mg Tablet 1,000 Mg PO TID last dose this morning next dose this afternoon. Allergies: Coded Allergies: codeine (Verified Allergy, Intermediate, 08/24/19) nitrofurantoin (Verified Allergy, Unknown, 08/24/19) prednisone (Verified Adverse Reaction, Intermediate, 08/24/19) PSYCHOLOGICAL ROS: No: Hallucinations Eyes: No: Loss of vision HEENT: No: Epistaxis Respiratory: YES: Cough, Shortness of breath; No: Hemoptysis Cardiovascular: No: Chest Pain Gastrointestinal: No: Vomiting, Diarrhea Neurological: No: Seizures Skin: No: Rash General: Alert, No acute distress HEENT: Atraumatic, PERRLA Lungs: Other (scattered crepitations bilaterally) Heart: Regular rate Abdomen: Soft Extremities: Other (1+ pitting edema) Psych/Mental Status: Mood NL VITALS Vital Signs Date Time Temp Pulse Resp B/P (MAP) Pulse Ox O2 Delivery O2 Flow Rate FiO2 08/25/19 14:48 97.8 72 20 110/63 (79) 97 Nasal Cannula 2.0 Labs Laboratory Tests Test 08/24/19 14:11 08/24/19 14:20 08/24/19 15:35 08/24/19 17:55 White Blood Count 4.4 x10^3/uL (4.0-11.0) Red Blood Count 4.44 x10^6/uL (3.50-5.40) Hemoglobin 12.7 g/dL (12.0-15.5) Hematocrit 39.2 % (36.0-47.0) Mean Corpuscular Volume 88 fL (79-100) Mean Corpuscular Hemoglobin 29 pg (25-35) Mean Corpuscular Hemoglobin Concent 33 g/dL (31-37) Red Cell Distribution Width 15.8 % (11.5-14.5) Platelet Count 189 x10^3/uL (140-400) Neutrophils (%) (Auto) 84 % (31-73) Lymphocytes (%) (Auto) 6 % (24-48) Monocytes (%) (Auto) 9 % (0-9) Eosinophils (%) (Auto) 1 % (0-3) Basophils (%) (Auto) 1 % (0-3) Neutrophils # (Auto) 3.7 x10^3uL (1.8-7.7) Lymphocytes # (Auto) 0.2 x10^3/uL (1.0-4.8) Monocytes # (Auto) 0.4 x10^3/uL (0.0-1.1) Eosinophils # (Auto) 0.0 x10^3/uL (0.0-0.7) Basophils # (Auto) 0.1 x10^3/uL (0.0-0.2) Sodium Level 131 mmol/L (136-145) Potassium Level 4.5 mmol/L (3.5-5.1) Chloride Level 93 mmol/L (98-107) Carbon Dioxide Level 27 mmol/L (21-32) Anion Gap 11 (6-14) Blood Urea Nitrogen 18 mg/dL (7-20) Creatinine 1.0 mg/dL (0.6-1.0) Estimated GFR (Cockcroft-Gault) 54.8 BUN/Creatinine Ratio 18 (6-20) Glucose Level 88 mg/dL (70-99) Calcium Level 9.6 mg/dL (8.5-10.1) Total Bilirubin 0.8 mg/dL (0.2-1.0) Aspartate Amino Transf (AST/SGOT) 24 U/L (15-37) Alanine Aminotransferase (ALT/SGPT) 14 U/L (14-59) Alkaline Phosphatase 112 U/L (46-116) Troponin I Quantitative 0.036 ng/mL (0-0.055) 0.039 ng/mL (0-0.055) XD-Ctk-O-Type Natriuretic Peptide 6561 pg/mL (0-124) Total Protein 7.3 g/dL (6.4-8.2) Albumin 3.8 g/dL (3.4-5.0) Albumin/Globulin Ratio 1.1 (1.0-1.7) Influenza Type A (Rapid) Negative (NEGATIVE) Influenza Type B (Rapid) Negative (NEGATIVE) Urine Collection Type Unknown Urine Color [place] Urine Clarity Cloudy Urine pH 5.5 Urine Specific [place] 1.015 Urine Protein 100 mg/dl (NEG-TRACE) Urine Glucose (UA) Neg mg/dL (NEG) Urine Ketones (Stick) 15 mg/dL (NEG) Urine Blood Large (NEG) Urine Nitrite Neg (NEG) Urine Bilirubin Neg (NEG) Urine Urobilinogen Dipstick 0.2 mg/dL (0.2 mg/dL) Urine Leukocyte Esterase Trace (NEG) Urine RBC Tntc /HPF (0-2) Urine WBC 5-10 /HPF (0-4) Urine Squamous Epithelial Cells Occ /LPF Urine Bacteria Few /HPF (0-FEW) Test 08/24/19 20:45 08/24/19 23:15 08/25/19 07:14 Troponin I Quantitative 0.051 ng/mL (0-0.055) 0.043 ng/mL (0-0.055) 0.046 ng/mL (0-0.055) Assessment/Plan 1. Acute on chronic combined systolic and diastolic heart failure. Last 2-D echocardiogram in June 2018 showed LVEF 45-50%. Her acute decompensation could be secondary to excessive oral fluid intake. She received Lasix in ED and is currently better compensated. Continue gentle diuresis. Plan outpatient 2-D echo and ischemic evaluation. 2. Sick sinus syndrome s/p permanent pacemaker implantation, recent device interrogation showed normal function. Patient denied any syncope and near- syncope. 3. Hypertension: Controlled 4. Hyperlipidemia: On statin's Thank you for your consultation FELICE SORIA MD Aug 25, 2019 15:53
[2019-08-25] MEDS ORDERED: AMITRIPTYLINE HCL 10 MG TABLET PO PRN (16:45)
[2019-08-25] MEDS ORDERED: CARVEDILOL 3.125 MG TABLET PO SCH (17:00)
--- NOTE | 2019-08-25 17:06 | HP ---
ADMIT DATE: 08/24/2019 HISTORY OF PRESENT ILLNESS: The patient is a 69-year-old female patient, who came to the Emergency Room complaining of chest pain, shortness of breath. Symptoms started about a week ago with sinus symptoms, cough with chest tightness. She denied any true chest pain, but chest tightness and discomfort that she rates about 6/10 in severity, associated with cough and marked shortness of breath on exertion. She has also complained of diaphoresis and apparently she thought she has a flu and was drinking more water than usual. She stated that she was taking her medication as prescribed. She has not taken any nonsteroidal anti-inflammatory medication or high salt diet and she was extensively investigated in the Emergency Room. Her first set of cardiac enzyme was slightly elevated at 0.036. Her serology showed influenza A and B were negative. Urinalysis was unremarkable and her chest x-ray also showed the heart is enlarged and unchanged. Left dual chamber cardiac pacemaker remains present. The great vessels appear unremarkable. There is no hilar or mediastinal mass. Lungs show mild vascular congestion with no focal infiltrate, trace right pleural effusion is present. No pneumothorax. There are no significant osseous abnormality. Therefore, the patient was admitted with CHF exacerbation. She was treated with IV Lasix once and was admitted to do 2 more sets of cardiac enzyme and consult the meatman. PAST MEDICAL HISTORY: Significant for sick sinus syndrome, status post permanent pacemaker implantation, hypertension, chronic diastolic heart failure, generalized osteoarthritis, DVT and pulmonary embolism, morbid obesity and recently diagnosed uterine cancer. PAST SURGICAL HISTORY: Permanent pacemaker implantation, colostomy and resection of colovesical fistula. FAMILY HISTORY: Positive for cancer, hypertension, negative for premature coronary artery disease. SOCIAL HISTORY: She is single, never , has no children. Does not smoke, drink alcohol occasionally. Does not use any drugs. 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 ALLERGIES: SHE IS ALLERGIC TO CODEINE AND NITROFURANTOIN and PREDNISONE. MEDICATIONS: She is currently on following medications: She is on loratadine 10 mg once a day, doxycycline 100 mg twice a day, letrozole for Femara 2.5 mg once a day, ferrous sulfate 325 mg twice a day, atorvastatin calcium 20 mg at bedtime, carvedilol 3.125 mg twice a day, losartan potassium 25 mg daily, acetaminophen 1000 mg 3 times a day, amitriptyline 10 mg at bedtime, potassium chloride 20 mEq once a day and furosemide 40 mg daily. She is also on medroxyprogesterone acetate for Provera 10 mg t.i.d. and vitamin D 2000 international unit once a day. She is also on allopurinol 200 mg once a day. REVIEW OF SYSTEMS: As per history of present illness. FAMILY HISTORY: She has one brother in a motor vehicle accident. One brother still alive at the age of 58. One sister has cancer of the breast with metastasis. The other sister has uterine cancer and third sister is healthy. PHYSICAL EXAMINATION: GENERAL: On arrival to the Emergency Room, the patient was somewhat tachypneic, pale, no jaundice, cyanosis or thyromegaly. No jugular venous distention or limb edema. VITAL SIGNS: Her heart rate was 72, blood pressure was 157/90, temperature was 98.4, respiratory rate was 20, and oxygen saturation was 96%. HEAD, EYES, EARS, NOSE AND THROAT: Showed normocephalic, atraumatic. NECK: Supple. HEART: Showed normal first and second heart sounds. No gallop, rub or murmur. CHEST: Showed central trachea, equal bilateral expansion, air entry, bilateral basal crepitation on both sides and no rhonchi. ABDOMEN: Distended, soft, nontender. NEUROLOGIC: She is awake, alert, responding appropriately. All cranial nerves are intact. She moves extremities without difficulty. She is mostly wheelchair bound. Her EKG showed that she was in sinus rhythm at a rate of 67 with wide QRS. No ST segment elevation. Chest x-ray was unremarkable. LABORATORY DATA: Showed that her white cell count was 4400, hemoglobin 12.7, hematocrit 39, MCV 88 and platelet count of 189,000 with normal manual differential. Her chemistry showed a serum sodium 131, potassium 4.5, chloride 93, bicarbonate 27, anion gap of 11, BUN 18, creatinine 1, estimated GFR was 55 mL per minute. Her glucose was 88, calcium was 9.6. Total bilirubin, AST, ALT, alkaline phosphatase were normal. Her beta natriuretic peptide was 6560. Total protein 7.3, albumin was 3.8. ASSESSMENT AND PLAN: In summary, this is a 69-year-old female patient, who came with acute on chronic diastolic congestive heart failure. She was treated with IV Lasix. We will do 2 more sets of cardiac enzyme. We will consult the Cardiology team and decide the further management accordingly and I have reconciled all her medication. LINDSEY STRONG MD DR: SEBASTIAN/hetal JOB#: [id number] / [id number]
--- NOTE | 2019-08-25 17:58 | EKG ---
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
[2019-08-25 19:11] VITALS: BP 109/63
[2019-08-25] MEDS: DOXYCYCLINE HYCLATE 100 MG TABLET PO SCH (20:37)
[2019-08-25] MEDS: ATORVASTATIN CALCIUM 20 MG TABLET PO SCH (20:37)
[2019-08-25] MEDS: medroxyPROGESTERone 5 MG TABLET PO SCH (20:38)
[2019-08-25 23:08] VITALS: BP 107/65
[2019-08-26 05:03] VITALS: BP 110/62
[2019-08-26] MEDS: NITROGLYCERIN OINT 1 GM PACKET. TP SCH ×3 (05:47→18:00)
[2019-08-26 06:47] LABS: CALCIUM 9.1 mg/dL (8.5-10.1); CREATININE 1.1 mg/dL (0.6-1.0); GFR 49.1; POTASSIUM 3.5 mmol/L (3.5-5.1)
[2019-08-26] MEDS: medroxyPROGESTERone 5 MG TABLET PO SCH ×2 (08:15→21:00)
[2019-08-26] MEDS: POTASSIUM CHLORIDE 20 MEQ TABLET.ER. PO SCH (08:15)
[2019-08-26] MEDS: DOXYCYCLINE HYCLATE 100 MG TABLET PO SCH ×2 (08:15→20:39)
[2019-08-26] MEDS: FERROUS SULFATE 325 MG TABLET. PO SCH ×2 (08:16→20:40)
[2019-08-26] MEDS: ACETAMINOPHEN 500 MG TABLET PO SCH ×3 (08:16→20:39)
[2019-08-26] MEDS: LOSARTAN 25 MG TABLET. PO SCH (08:16)
[2019-08-26] MEDS: CARVEDILOL 3.125 MG TABLET PO SCH ×2 (08:17→18:34)
[2019-08-26] MEDS: FUROSEMIDE 40 MG TABLET PO SCH (08:17)
[2019-08-26] MEDS: ALLOPURINOL 100 MG TABLET. PO SCH (08:17)
[2019-08-26] MEDS: CHOLECALCIFEROL (VITAMIN D3) 1,000 UNIT TABLET PO SCH (08:17)
[2019-08-26] MEDS: NON FORMULARY ITEM (Letrozole (Femara) 1 TAB) PO SCH (09:00)
[2019-08-26] MEDS ORDERED: CETIRIZINE HCL 10 MG TABLET PO PRN (09:00)
[2019-08-26] MEDS ORDERED: FUROSEMIDE 40 MG/4 ML VIAL IVP ONE (09:00)
[2019-08-26 11:23] VITALS: BP 99/58
--- NOTE | 2019-08-26 15:19 | PDOC ---
SUBJECTIVE: Patient seen and examined She reports feeling better today. OBJECTIVE: Problems: Problems Medical Problems: (1) CHF exacerbation Status: Acute 1. Acute on chronic combined systolic and diastolic heart failure. Last 2-D echocardiogram in June 2018 showed LVEF 45-50%. The patient is feeling significantly better after diuresis with Lasix. We'll continue present treatments and increase activities. Possibly home later today or tomorrow with outpatient echo and ischemia evaluation. 2. Sick sinus syndrome s/p permanent pacemaker implantation, recent device interrogation showed normal function. Patient denied any syncope and near- syncope. 3. Hypertension: Controlled 4. Hyperlipidemia: On a statin. Vital Signs/I&O: Vital Signs Date Time Temp Pulse Resp B/P (MAP) Pulse Ox O2 Delivery O2 Flow Rate FiO2 08/26/19 12:00 71 99/58 08/26/19 11:23 98.1 20 97 Nasal Cannula 2.0 I & O 08/25/19 08/25/19 08/26/19 15:00 23:00 07:00 Intake Total 360 ml 440 ml 0 ml Output Total 350 ml 325 ml Balance 360 ml 90 ml -325 ml Labs: Laboratory Tests Test 08/26/19 06:22 Sodium Level 139 mmol/L (136-145) Potassium Level 3.5 mmol/L (3.5-5.1) Chloride Level 100 mmol/L (98-107) Carbon Dioxide Level 33 mmol/L (21-32) H Anion Gap 6 (6-14) Blood Urea Nitrogen 19 mg/dL (7-20) Creatinine 1.1 mg/dL (0.6-1.0) H Estimated GFR (Cockcroft-Gault) 49.1 Glucose Level 83 mg/dL (70-99) Calcium Level 9.1 mg/dL (8.5-10.1) Physical Exam: Chest. Mildly decreased breath sounds. CV. RRR with a I/ murmur. Abdomen. Soft ASSESSMENT: Assessment and plan as above. MEHDI CHU MD Aug 26, 2019 15:19
[2019-08-26 15:53] VITALS: BP 127/70
[2019-08-26 19:30] VITALS: BP 115/70
[2019-08-26] MEDS: ATORVASTATIN CALCIUM 20 MG TABLET PO SCH (20:39)
--- NOTE | 2019-08-26 22:45 | PN ---
DATE: 08/26/2019 SUBJECTIVE: The patient is resting, slightly propped up in bed, in no apparent distress. She denied any complaint, feeling generally much improved. PHYSICAL EXAMINATION: GENERAL: When I examined her this afternoon, she looked pale, but no jaundice, cyanosis or thyromegaly. No jugular venous distention. No limb edema. VITAL SIGNS: Her heart rate was 71, blood pressure was 99/58, temperature was 98.1, respiratory rate was 20, and oxygen saturation was 97% on 2 liters of oxygen. HEAD, EYES, EARS, NOSE, AND THROAT: Normocephalic, atraumatic. NECK: Supple. HEART: Showed normal first and second heart sounds. No gallop or murmur. CHEST: Clear to auscultation. No crepitation or rhonchi. ABDOMEN: Distended, soft, nontender. NEUROLOGIC: She was awake, alert, responding appropriately. All cranial nerves intact. She moves all extremities without difficulty. She is mostly bedbound, chair bound. Her intake was 1100, output was 4450. LABORATORY DATA: As of this morning, her serum sodium was 139, potassium 3.5, chloride 100, bicarbonate 33, anion gap of 6, BUN 19, creatinine 1.1, estimated GFR was 49 mL per minute. Her glucose was 83, calcium was 9.1. Urinalysis was essentially unremarkable. Her influenza A and B were negative. ASSESSMENT: 1. [id number] combined systolic and diastolic heart failure, well compensated. 2. Sick sinus syndrome, status post permanent pacemaker implantation, recent device interrogation showed normal function. 3. Hypertension, well controlled. 4. Hyperlipidemia. 5. Recently diagnosed endometrial carcinoma. 6. History of deep venous thrombosis and pulmonary embolism. 7. Morbid obesity. PLAN: To continue with all her current medication. She will be discharged tomorrow. LINDSEY STRONG MD DR: SEBASTIAN/hetal JOB#: [id number] / [id number]
[2019-08-27 06:00] VITALS: BP 131/82
[2019-08-27] MEDS: NITROGLYCERIN OINT 1 GM PACKET. TP SCH ×2 (06:00)
[2019-08-27 07:03] LABS: HEMATOCRIT 36.7 % (36.0-47.0); HEMOGLOBIN 11.6 g/dL (12.0-15.5); RED BLOOD COUNT 4.13 x10^6/uL (3.50-5.40); RED CELL DISTRIBUTION WIDTH 15.7 % (11.5-14.5); WHITE BLOOD COUNT 3.6 x10^3/uL (4.0-11.0)
[2019-08-27 07:20] LABS: ALBUMIN 3.3 g/dL (3.4-5.0); ALBUMIN/GLOBULIN RATIO 0.9 (1.0-1.7); CREATININE 1.1 mg/dL (0.6-1.0); GFR 49.1; POTASSIUM 3.8 mmol/L (3.5-5.1); TOTAL BILIRUBIN 0.4 mg/dL (0.2-1.0); TOTAL PROTEIN 6.8 g/dL (6.4-8.2)
[2019-08-27] MEDS: CHOLECALCIFEROL (VITAMIN D3) 1,000 UNIT TABLET PO SCH (08:20)
[2019-08-27] MEDS: ALLOPURINOL 100 MG TABLET. PO SCH (08:20)
[2019-08-27] MEDS: DOXYCYCLINE HYCLATE 100 MG TABLET PO SCH (08:20)
[2019-08-27] MEDS: POTASSIUM CHLORIDE 20 MEQ TABLET.ER. PO SCH (08:21)
[2019-08-27] MEDS: FUROSEMIDE 40 MG TABLET PO SCH (08:21)
[2019-08-27] MEDS: ACETAMINOPHEN 500 MG TABLET PO SCH (08:21)
[2019-08-27 08:22] VITALS: BP 131/82
[2019-08-27] MEDS: medroxyPROGESTERone 5 MG TABLET PO SCH (08:22)
[2019-08-27] MEDS: LOSARTAN 25 MG TABLET. PO SCH (08:22)
[2019-08-27] MEDS: FERROUS SULFATE 325 MG TABLET. PO SCH (08:22)
[2019-08-27] MEDS: CARVEDILOL 3.125 MG TABLET PO SCH (08:22)
[2019-08-27] MEDS: NON FORMULARY ITEM (Letrozole (Femara) 1 TAB) PO SCH (08:23)
--- NOTE | 2019-08-27 11:31 | NUR ---
Pt discharged home for self care. Pt iv discontinued with no complications, pressure dressing applied. Pt given written and verbal discharge, follow up, and medication instructions. Pt left unit in stable condition via gurney accompanied by ems.
--- NOTE | 2019-08-27 11:52 | DS ---
DATE OF DISCHARGE: 08/27/2019 HISTORY OF PRESENT ILLNESS: The patient is a 69-year-old female patient, who was admitted with a complaint of cough, chest tightness and discomfort that she rated as about 6/10 in severity, associated with cough and marked shortness of breath on exertion. She also complained of diaphoresis. She was extensively investigated and apparently all her lab works are unremarkable. She has 3 sets of cardiac enzyme that apparently are possibly due to demand ischemia. She actually did well with her on fluid restriction and was actually continued on her Lasix and she did actually very well. PHYSICAL EXAMINATION: GENERAL: When I saw her today, she was resting slightly propped up in bed, in no apparent distress. On questioning her, denied any complaint, in particular denied any further episode of chest tightness or cough or phlegm. When I examined her, she was pale, no jaundice, cyanosis or thyromegaly. No jugular venous distention or limb edema. VITAL SIGNS: Her heart rate was 71, blood pressure was 131/82, temperature 97.8, respiratory rate was 20, and oxygen saturation was 95% on room air. HEAD, EYES, EARS, NOSE AND THROAT: Showed normocephalic, atraumatic. NECK: Supple. CARDIAC: Normal first and second heart sounds. No gallop or murmur. CHEST: Clear to auscultation. No crepitation or rhonchi. ABDOMEN: Distended, soft, nontender. NEUROLOGIC: She is sleepy, but arousable. All cranial nerves are intact. She moves upper extremities ____ lower extremities, mostly bedbound, chair bound. Her intake was 800 output was 675. LABORATORY DATA: As of this morning, her serum sodium 138, potassium 3.8, chloride 100, bicarbonate 29, anion gap of 9, BUN 27, creatinine 1.1, estimated GFR was 49 mL per minute. Her glucose was 84, calcium was 9. Total bilirubin, AST, ALT, alkaline phosphatase were normal. Total protein 6.8, albumin 3.3. White cell count was 3600, hemoglobin 11.6, hematocrit 36, MCV 89, and platelet count 250,000. DISCHARGE MEDICATIONS: She was discharged home to continue on her Tylenol 1000 mg 3 times a day, allopurinol 200 mg once a day, amitriptyline 10 mg at bedtime, atorvastatin calcium 20 mg at bedtime, carvedilol 3.125 mg twice a day, cholecalciferol (vitamin D3) 2000 units once a day, doxycycline, ferrous sulfate 325 mg twice a day, furosemide 40 mg once a day, letrozole for Femara 2.5 mg once a day, loratadine 10 mg once a day and losartan potassium 25 mg daily, medroxyprogesterone acetate for Provera 10 mg twice a day, potassium chloride 20 mEq once a day. FINAL DISCHARGE DIAGNOSES: 1. Acute on chronic combined systolic and diastolic heart failure, well compensated. 2. Sick sinus syndrome, status post permanent pacemaker implantation, recent device interrogation showed normal function. 3. Hypertension, well controlled. 4. Hyperlipidemia. 5. Recent diagnosis with endometrial carcinoma. 6. History of deep vein thrombosis and pulmonary emboli and morbid obesity. LINDSEY STRONG MD DR: SEBASTIAN/hetal JOB#: [id number] / [id number]
== END 2019-08-27 11:36 | disposition home or self-care (01) | DRG 292 ==
LOC: ER 13:51 → 1 SOUTH 17:14
PROVIDERS: ADMIT Internal Medicine; ATTEND Internal Medicine
DX: I11.0 Hypertensive heart disease with heart failure (principal); I24.8 Other forms of acute ischemic heart disease; Z68.43 Body mass index [BMI] 50.0-59.9, adult; I50.43 Acute on chronic combined systolic (congestive) and diastolic (congestive) heart failure; I49.5 Sick sinus syndrome; E66.01 Morbid (severe) obesity due to excess calories; M15.9 Polyosteoarthritis, unspecified; E78.5 Hyperlipidemia, unspecified; Z85.42 Personal history of malignant neoplasm of other parts of uterus; Z86.711 Personal history of pulmonary embolism; Z80.49 Family history of malignant neoplasm of other genital organs; Z80.3 Family history of malignant neoplasm of breast; Z82.49 Family history of ischemic heart disease and other diseases of the circulatory system; Z93.3 Colostomy status; Z95.0 Presence of cardiac pacemaker; Z86.718 Personal history of other venous thrombosis and embolism; Z88.8 Allergy status to other drugs, medicaments and biological substances
CPT/HCPCS: 36415; 51702; 71045; 80048; 80053; 81001; 83880; 84484; 85025; 85027; 87086; 87804; 93005; 96374; 99285; J1940

== ENCOUNTER → 2019-09-28 | Outpatient (CLI) | payer MEDICARE, OTHER ==
[~2019-09-28] MED LIST changes: +CARV3.12 PO; +CHOL200078 PO; +FERR-36 PO; +IOHEXOL 240 MG/ML 50ML VIAL. ONE; +IOHEXOL 240 MG/ML 50ML VIAL. PO ONE; +IOHEXOL 300 MG/ML 75 ML VIAL. IV ONE; +LETR2.5T2 PO
--- NOTE | 2019-09-28 16:40 | RAD ---
CT scan of the chest, abdomen and pelvis with contrast 09/28/2019 CLINICAL HISTORY: Endometrial cancer. TECHNIQUE: After the oral and intravenous administration of contrast, contiguous, 3 mm axial sections were obtained through the chest, abdomen and pelvis. 60 cc of Omnipaque 300 were administered intravenously during this examination. One or more of the following individualized dose reduction techniques were utilized for this study: 1. Automated exposure control. 2. Adjustment of the mA and/or kV according to patient size. 3. Use of iterative reconstruction technique. FINDINGS: Comparison is made to a CT scan of the chest dated 12/14/2016. Additional comparison is made to patient's CT scan of the abdomen and pelvis dated 06/14/2019. A left-sided pacemaker is unchanged in position. The heart is mildly enlarged. Atherosclerotic calcification of the thoracic aorta and its branches is noted. The thoracic aorta is tortuous but tapers normally. Prominent noncalcified and partially calcified mediastinal lymph nodes are seen which measure 5 mm to 2.3 cm in size. These have not significantly changed. No axillary lymphadenopathy is noted. Dependent subsegmental atelectasis is seen involving both lungs. Perihilar groundglass opacities are seen involving both lungs which likely reflect pulmonary edema related to mild CHF. No pneumothorax or pleural effusion is seen. A 4 mm anterior fissure lymph node is seen within the right middle lobe, unchanged. Small areas of subsegmental atelectasis is seen involving the medial aspect of the right middle lobe. A 1.9 cm rounded low-attenuation lesion is seen involving the right lobe of the liver consistent with a hepatic cyst. This is unchanged. The spleen, pancreas and adrenal glands are within normal limits. Rounded low-attenuation lesions are seen involving both kidneys. These measure 8 mm to 1.9 cm in size. These likely represent cysts. They are unchanged. No further imaging workup is recommended. Atherosclerotic calcification of the abdominal aorta is seen. The abdominal aorta tapers normally. The gallbladder is well-distended. No free fluid or free air is within abdomen. There is no evidence of bowel obstruction. No retroperitoneal lymphadenopathy is seen. A ventral hernia is seen near the umbilicus which contains portions of the colon along the small bowel. The hernia sac measures 9.2 cm in size. The bowel loops are not dilated. A colostomy is seen within the left lower quadrant of the abdomen. A parastomal hernia is seen which contains nondilated small bowel loops. The hernia sac measures 9.3 cm in size. Images through the pelvis demonstrate the urinary bladder distended with urine. An IUD is seen within the expected location of the the endometrial canal of the uterus. Calcifications are seen within the pelvis consistent with phleboliths. No adnexal mass is seen. No free fluid is noted. No pelvic or inguinal lymphadenopathy is seen. Mild S-shaped curvature of the thoracolumbar spine is noted. Degenerative changes are seen involving the thoracic and throughout the lumbar spine along with both hips. Dysplasia of the left femoral head and acetabulum is again noted. IMPRESSION: No acute abnormality is seen. There is no CT evidence of metastatic disease involving the chest, abdomen or pelvis. Electronically signed by: Usama Hoffman MD (09/28/2019 4:37 PM) [facility] – [place], [place]
== END ==
LOC: CT 09:35
PROVIDERS: ATTEND Obstetrics & Gynecology Gynecologic Oncology
DX: C54.1 Malignant neoplasm of endometrium (principal); I70.0 Atherosclerosis of aorta; J98.11 Atelectasis; K43.5 Parastomal hernia without obstruction or gangrene
CPT/HCPCS: 71260; 74177; Q9966; Q9967

== ENCOUNTER 2020-01-31 12:07 | Emergency (ER) | payer MEDICARE, OTHER ==
[~2020-01-31] VITALS: Ht 157.5 cm; Wt 122.2 kg
[~2020-01-31 12:07] MED LIST changes: -IOHEXOL 240 MG/ML 50ML VIAL. ONE; -IOHEXOL 240 MG/ML 50ML VIAL. PO ONE; -IOHEXOL 300 MG/ML 75 ML VIAL. IV ONE; +MULT-445 PO; -MULT1TAB52 PO
[2020-01-31] MEDS ORDERED: IV NORMAL SALINE 500ML 500 ML IV ONE (12:30)
--- NOTE | 2020-01-31 12:42 | RAD ---
CHEST AP ONLY History: Reason: SOB / Spl. Instructions: / History: Comparison: August 24, 2019 Findings: Patchy bibasilar opacities. No pleural effusion. No pneumothorax. Normal heart size. Left-sided pacemaker. Impression: 1. Patchy bibasilar opacities, most likely atelectasis. If persistent clinical concern, PA and lateral view the chest can better assess. Electronically signed by: Jet Acevedo DO (01/31/2020 12:39 PM) [id number]
[2020-01-31 12:43] LABS: BASO % 0 % (0-3); EOS % 1 % (0-3); HEMATOCRIT 28.8 % (36.0-47.0); HEMOGLOBIN 9.5 g/dL (12.0-15.5); LYMPH # 0.6 x10^3/uL (1.0-4.8); LYMPH % 8 % (24-48); MEAN CORPUSCULAR HEMOGLOBIN 30 pg (25-35); MEAN CORPUSCULAR HGB CONC 33 g/dL (31-37); MEAN CORPUSCULAR VOLUME 91 fL (79-100); MONO # 0.7 x10^3/uL (0.0-1.1); MONO % 9 % (0-9); NEUT # 6.9 x10^3uL (1.8-7.7); NEUT % 83 % (31-73); PLATELET COUNT 272 x10^3/uL (140-400); RED BLOOD COUNT 3.15 x10^6/uL (3.50-5.40); RED CELL DISTRIBUTION WIDTH 17.5 % (11.5-14.5); WHITE BLOOD COUNT 8.3 x10^3/uL (4.0-11.0)
[2020-01-31 12:51] LABS: CALCIUM 9.7 mg/dL (8.5-10.1); CREATININE 1.7 mg/dL (0.6-1.0); GFR 29.7; POTASSIUM 3.9 mmol/L (3.5-5.1)
[2020-01-31 13:02] LABS: ALBUMIN 3.2 g/dL (3.4-5.0); ALBUMIN/GLOBULIN RATIO 0.9 (1.0-1.7); TOTAL BILIRUBIN 0.5 mg/dL (0.2-1.0); TOTAL PROTEIN 6.6 g/dL (6.4-8.2)
--- NOTE | 2020-01-31 13:10 | EKG ---
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
[2020-01-31] MEDS ORDERED: oxyCODONE/APAP 5/325 1 TAB TABLET PO ONE (13:15)
[2020-01-31] MEDS ORDERED: IV NORMAL SALINE 1,000ML 1,000 ML IV ONE (16:00)
--- NOTE | 2020-01-31 16:13 | PHYS DOC ---
Past History Past Medical History: Cancer, CHF, Hypertension Past Surgical History: Pacemaker, Other Additional Past Surgical Histo: colon resect. pacemaker insertion Smoking: Non-smoker Alcohol Use: None Drug Use: None General Adult EDM: Chief Complaint: VAGINAL PROBLEM HPI: HPI: Patient is a 6-year-old female presenting with lightheadedness and vaginal bleeding. This is a patient with a history of endometrial cancer has been followed at has had vaginal bleeding on and off for over a year increase over the last 3 days lots of clots when she tries to urinate. She got up to use the toilet today and she got lightheaded thought she was going to pass out. She is basically wheelchair-bound from severe arthritis and so she came to the emergency room for evaluation she does have chronic lower abdominal pain related to her cancer that is unchanged no fever no chest pain mild shortness of breath when trying to move around Past medical history congestive heart failure pacemaker ostomy back in 2007 she tells me she has a history of a vesicovaginal fistula medications include oxycodone carvedilol atorvastatin Lasix the Mirena IUD other BP medication. Other past medical history severe osteoarthritis wheelchair-bound severe obesity with a BMI greater than 50. Followed by Dr. Ovalles at oncology Review of Systems: Review of Systems: Constitutional: Denies fever or chills Eyes: Denies change in visual acuity HENT: Denies nasal congestion or sore throat Respiratory: Denies cough Cardiovascular: Denies chest pain or edema GI: Musculoskeletal: Neurologic: Denies headache, focal weakness or sensory changes Endocrine: Denies polyuria or polydipsia Lymphatic: Denies swollen glands Psychiatric: Denies depression or anxiety Heart Score: Risk Factors: Risk Factors: DM, Current or recent (<one month) smoker, HTN, HLP, family history of CAD, obesity. Risk Scores: Score 0 - 3: 2.5% MACE over next 6 weeks - Discharge Home Score 4 - 6: 20.3% MACE over next 6 weeks - Admit for Clinical Observation Score 7 - 10: 72.7% MACE over next 6 weeks - Early Invasive Strategies Current Medications: Current Meds: Current Medications Medications (Trade) Dose Ordered Sig/Bere Start Time Stop Time Status Last Admin Dose Admin Oxycodone/ Acetaminophen (Percocet 5/325) 2 tab 1X ONCE 01/31/20 13:15 01/31/20 13:16 DC 01/31/20 14:24 2 TAB Sodium Chloride 1,000 ml @ 60 mls/hr 1X ONCE 01/31/20 16:00 02/01/20 08:39 UNV Allergies: Allergies: Allergies Coded Allergies Type Severity Reaction Last Updated Verified codeine Allergy Intermediate 01/31/20 Yes nitrofurantoin Allergy Unknown 08/24/19 Yes prednisone Adverse Reaction Intermediate 08/24/19 Yes Physical Exam: PE: Constitutional: Well developed, obese, no acute distress, non-toxic appearance. [] HENT: Normocephalic, atraumatic, bilateral external ears normal, oropharynx moist, no oral exudates, nose normal. [] Eyes: PERRLA, EOMI, conjunctiva normal, no discharge. [] Neck: Normal range of motion, no tenderness, supple, no stridor. [] Cardiovascular:Heart rate regular rhythm, no murmur [] Lungs & Thorax: Bilateral breath sounds clear to auscultation [] Abdomen: Bowel sounds normal, soft, no tenderness, no masses, no pulsatile masses. 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 [] Back: No tenderness, no CVA tenderness. [] Extremities Limited range of motion of bilateral knees secondary to severe arthritis Neurologic: Alert and oriented X 3, normal motor function, normal sensory function, no focal deficits noted. [] Psychologic: Affect normal, judgement normal, mood normal. [] Current Patient Data: Labs: Laboratory Tests Test 01/31/20 12:08 White Blood Count 8.3 x10^3/uL (4.0-11.0) Red Blood Count 3.15 x10^6/uL (3.50-5.40) L Hemoglobin 9.5 g/dL (12.0-15.5) L Hematocrit 28.8 % (36.0-47.0) L Mean Corpuscular Volume 91 fL (79-100) Mean Corpuscular Hemoglobin 30 pg (25-35) Mean Corpuscular Hemoglobin Concent 33 g/dL (31-37) Red Cell Distribution Width 17.5 % (11.5-14.5) H Platelet Count 272 x10^3/uL (140-400) Neutrophils (%) (Auto) 83 % (31-73) H Lymphocytes (%) (Auto) 8 % (24-48) L Monocytes (%) (Auto) 9 % (0-9) Eosinophils (%) (Auto) 1 % (0-3) Basophils (%) (Auto) 0 % (0-3) Neutrophils # (Auto) 6.9 x10^3uL (1.8-7.7) Lymphocytes # (Auto) 0.6 x10^3/uL (1.0-4.8) L Monocytes # (Auto) 0.7 x10^3/uL (0.0-1.1) Eosinophils # (Auto) 0.0 x10^3/uL (0.0-0.7) Basophils # (Auto) 0.0 x10^3/uL (0.0-0.2) Sodium Level 136 mmol/L (136-145) Potassium Level 3.9 mmol/L (3.5-5.1) Chloride Level 100 mmol/L (98-107) Carbon Dioxide Level 24 mmol/L (21-32) Anion Gap 12 (6-14) Blood Urea Nitrogen 25 mg/dL (7-20) H Creatinine 1.7 mg/dL (0.6-1.0) H Estimated GFR (Cockcroft-Gault) 29.7 BUN/Creatinine Ratio 15 (6-20) Glucose Level 96 mg/dL (70-99) Calcium Level 9.7 mg/dL (8.5-10.1) Total Bilirubin 0.5 mg/dL (0.2-1.0) Aspartate Amino Transferase (AST) 15 U/L (15-37) Alanine Aminotransferase (ALT) 11 U/L (14-59) L Alkaline Phosphatase 80 U/L (46-116) Troponin I Quantitative 0.034 ng/mL (0-0.055) AV-Wtu-E-Type Natriuretic Peptide 2784 pg/mL (0-124) H Total Protein 6.6 g/dL (6.4-8.2) Albumin 3.2 g/dL (3.4-5.0) L Albumin/Globulin Ratio 0.9 (1.0-1.7) L Vital Signs: Vital Signs Date Time Temp Pulse Resp B/P (MAP) Pulse Ox O2 Delivery O2 Flow Rate FiO2 01/31/20 14:24 18 99 Room Air 01/31/20 12:46 98.2 84 128/68 (88) EKG: EKG: [] Paced rhythm similar to prior no STEMI in light of that Radiology/Procedures: Radiology/Procedures: [] I reviewed the chest x-ray finding I do not think the patient has pneumonia there is no cough no fever likely related to positioning and patient cannot do a PA lateral because she is wheelchair-bound. Course & Med Decision Making: Course & Med Decision Making Pertinent Labs and Imaging studies reviewed. (See chart for details) []69-year-old female who is presenting with lightheadedness and weakness in the setting of vaginal bleeding hemoglobin dropped from 12-9.5. She does not feel that she can manage at home due to the weakness the hemoglobin likely will downtrend further given the 2-3 episodes of moderate to large size clots that she had in the emergency room. I spoke with Dr. Ovalles from oncology at reviewed case. Apparently she had a DNC back in May that actually made bleeding worse so in light of the above presentation agrees that no procedural intervention is needed acutely. She did say if the hemoglobin were to drop significantly she could be seen at for something else such as consideration of uterine artery embolization she really is not a surgical candidate for hysterectomy due to previous colon resection and ostomy anatomy. Patient is agreeable to the plan. I spoke with Dr. Richards here at [facility] who is excepted the patient for observation after discussion as noted above I ORDERED type and screen and iv fluids, hold off on transfusion in ed for now. Dragon Disclaimer: Dragon Disclaimer: This electronic medical record was generated, in whole or in part, using a voice recognition dictation system. Departure Departure: Impression: Primary Impression: Lightheadedness Additional Impression: Symptomatic anemia Disposition: ADMITTED INPATIENT Admitting Physician: Jesus Richards Condition: STABLE Referrals: LUIS ZHOU MD (PCP) Justification of Admission: Justification of Admission: Justification of Admission Dx: Yes (symptomatic anemia) CRISTIN SCANLON MD Jan 31, 2020 16:13
[2020-01-31] MEDS ORDERED: TRANEXAMIC ACID 1,000 MG/10 ML VIAL. ONE (16:59)
[2020-01-31] MEDS ORDERED: IV NORMAL SALINE 100ML 100 ML ONE (17:01)
[2020-01-31] MEDS ORDERED: TRANEXAMIC ACID 1,000 MG in IV NORMAL SALINE 250ML 250 ML IV ONE (17:15)
[2020-01-31] MEDS ORDERED: TRANEXAMIC ACID 1,000 MG in IV NORMAL SALINE 50ML 50 ML IV ONE (17:15)
[2020-01-31 17:21] LABS: BASO # 0.1 x10^3/uL (0.0-0.2); BASO % 1 % (0-3); EOS % 0 % (0-3); HEMATOCRIT 25.3 % (36.0-47.0); HEMOGLOBIN 8.5 g/dL (12.0-15.5); LYMPH # 0.9 x10^3/uL (1.0-4.8); LYMPH % 8 % (24-48); MEAN CORPUSCULAR HEMOGLOBIN 30 pg (25-35); MEAN CORPUSCULAR HGB CONC 34 g/dL (31-37); MEAN CORPUSCULAR VOLUME 91 fL (79-100); MONO # 0.8 x10^3/uL (0.0-1.1); MONO % 8 % (0-9); NEUT # 8.4 x10^3uL (1.8-7.7); NEUT % 82 % (31-73); PLATELET COUNT 281 x10^3/uL (140-400); RED CELL DISTRIBUTION WIDTH 17.1 % (11.5-14.5); WHITE BLOOD COUNT 10.2 x10^3/uL (4.0-11.0)
[2020-01-31 17:52] VITALS: BP 116/61
[2020-01-31] MEDS ORDERED: ONDANSETRON PF 4 MG/2 ML VIAL. IVP ONE (18:00)
== END 2020-01-31 18:22 | disposition short-term general hospital (02) ==
LOC: ER 12:07
DX: D64.9 Anemia, unspecified (principal); R42 Dizziness and giddiness; N93.9 Abnormal uterine and vaginal bleeding, unspecified; R10.30 Lower abdominal pain, unspecified; R53.1 Weakness; I11.0 Hypertensive heart disease with heart failure; I50.9 Heart failure, unspecified; E66.01 Morbid (severe) obesity due to excess calories; Z68.42 Body mass index [BMI] 45.0-49.9, adult; Z98.890 Other specified postprocedural states; Z95.0 Presence of cardiac pacemaker; Z88.5 Allergy status to narcotic agent; Z88.8 Allergy status to other drugs, medicaments and biological substances; Z79.899 Other long term (current) drug therapy
CPT/HCPCS: 36415; 71045; 80053; 83880; 84484; 85025; 86850; 86900; 86901; 86922; 93005; 96361; 96365; 96375; 99285; J2405; J7030; J7040; P9016

== ENCOUNTER → 2020-03-29 | Outpatient (CLI) | payer MEDICARE, OTHER ==
[2020-03-29 16:15] LABS: CALCIUM 9.2 mg/dL (8.5-10.1); CREATININE 1.5 mg/dL (0.6-1.0); GFR 34.2; POTASSIUM 4.1 mmol/L (3.5-5.1)
== END | disposition home or self-care (01) ==
LOC: SPEC 15:56
PROVIDERS: ATTEND Physician Assistant
DX: I13.0 Hypertensive heart and chronic kidney disease with heart failure and stage 1 through stage 4 chronic kidney disease, or unspecified chronic kidney disease (principal); N18.2 Chronic kidney disease, stage 2 (mild); I50.9 Heart failure, unspecified
CPT/HCPCS: 36415; 80048

== ENCOUNTER 2020-04-02 12:36 | Inpatient (IN) | payer MEDICARE, OTHER ==
[~2020-04-02] VITALS: Ht 157.5 cm; Wt 122.7 kg
[2020-04-02 13:04] LABS: BASO % 1 % (0-3); EOS # 0.1 x10^3/uL (0.0-0.7); EOS % 2 % (0-3); HEMATOCRIT 36.7 % (36.0-47.0); HEMOGLOBIN 12.1 g/dL (12.0-15.5); LYMPH # 0.4 x10^3/uL (1.0-4.8); LYMPH % 8 % (24-48); MEAN CORPUSCULAR HEMOGLOBIN 30 pg (25-35); MEAN CORPUSCULAR HGB CONC 33 g/dL (31-37); MEAN CORPUSCULAR VOLUME 92 fL (79-100); MONO # 0.5 x10^3/uL (0.0-1.1); MONO % 11 % (0-9); NEUT # 3.8 x10^3uL (1.8-7.7); NEUT % 79 % (31-73); PLATELET COUNT 216 x10^3/uL (140-400); RED CELL DISTRIBUTION WIDTH 15.6 % (11.5-14.5); WHITE BLOOD COUNT 4.8 x10^3/uL (4.0-11.0)
--- NOTE | 2020-04-02 13:17 | RAD ---
Examination: CHEST AP ONLY History: Reason: cough / Spl. Instructions: / History: Comparison: 01/31/2020. Findings: AP portable upright frontal view of the chest was obtained. Dual lead left-sided pacemaker is present. Subtle right basilar infiltrate or atelectasis. Slight pulmonary vasculature congestion noted. There is no pneumothorax. Small pleural effusions suspected. No acute bone abnormality. IMPRESSION: Mild congestive heart failure. Subtle right basilar infiltrate or atelectasis. Electronically signed by: Jose Shi MD (04/02/2020 1:14 PM) [id number]
[2020-04-02 13:20] LABS: CALCIUM 9.9 mg/dL (8.5-10.1); CREATININE 1.6 mg/dL (0.6-1.0); GFR 31.8; POTASSIUM 3.7 mmol/L (3.5-5.1)
[2020-04-02 13:34] LABS: ALBUMIN 3.1 g/dL (3.4-5.0); ALBUMIN/GLOBULIN RATIO 0.6 (1.0-1.7); C REACTIVE PROTEIN 15.5 mg/L (0-3.3); TOTAL BILIRUBIN 0.5 mg/dL (0.2-1.0)
[2020-04-02] MEDS ORDERED: FUROSEMIDE 40 MG/4 ML VIAL IVP ONE ×2 (13:45→16:45)
[2020-04-02 15:18] VITALS: BP 144/73
--- NOTE | 2020-04-02 15:52 | PHYS DOC ---
Past History Past Medical History: Cancer, CHF, Hypertension, Other Past Surgical History: Pacemaker, Other Additional Past Surgical Histo: colon resect. pacemaker insertion Smoking: Non-smoker Alcohol Use: None Drug Use: None Adult General Chief Complaint Chief Complaint: SHORTNESS OF BREATH HPI HPI Patient is a 70-year-old female past medical history of congestive heart failure and uterine cancer presents to the emergency room complaining of shortness of breath and edema. Patient states that she was taken off of her Lasix for short period of time and since that time she has been unable to get the fluid she collected off. She states that she has progressively been gaining weight. She is gained 2 pounds in the last 24 hours. She has been doubling her Lasix at home without relief. She is requiring the same amount of oxygen she typically does. She denies any fevers. Review of Systems Review of Systems General: Denies fever, chills, sweats, fatigue Eyes: Denies drainage, blurred vision, eye redness HENT: Denies rhinorrhea, sore throat, earache Respiratory: Reports cough, shortness of breath Cardiac: Denies palpitations, chest pain reports edema GI: Denies abdominal pain, Nausea, vomiting MSK: Denies back pain, neck pain Skin: Denies rash, jaundice Neuro: Denies headache, dizziness Psychiatric: Denies SI/HI Current Medications Current Medications Current Medications Medications (Trade) Dose Ordered Sig/Bere Start Time Stop Time Status Last Admin Dose Admin Furosemide (Lasix) 40 mg 1X ONCE 04/02/20 13:45 04/02/20 13:46 DC Allergies Allergies Allergies Coded Allergies Type Severity Reaction Last Updated Verified codeine Allergy Intermediate 01/31/20 Yes nitrofurantoin Allergy Unknown 08/24/19 Yes prednisone Adverse Reaction Intermediate 08/24/19 Yes Physical Exam Physical Exam General: Awake, alert, NAD. Well Nourished, well hydrated. Cooperative HEENT: Atraumatic, EOMI, PERRL, airway patent, moist oral mucosa Neck: Supple, trachea midline Respiratory: Diffuse crackles bilaterally, normal effort, no wheezing CV: RRR, no murmur, cap refill <2, bilateral pitting edema GI: Soft, nondistended, nontender, no masses MSK: No obvious deformities Skin: Warm, dry, intact Neuro: A&O x3, speech NL, sensory and motor grossly intact, no focal deficits Psych: Normal affect, normal mood, not suicidal or homicidal Current Patient Data Vital Signs Vital Signs Date Time Temp Pulse Resp B/P (MAP) Pulse Ox O2 Delivery O2 Flow Rate FiO2 04/02/20 15:18 98.1 65 22 144/73 (96) 94 Room Air Lab Results Laboratory Tests Test 04/02/20 12:45 White Blood Count 4.8 x10^3/uL (4.0-11.0) Red Blood Count 4.00 x10^6/uL (3.50-5.40) Hemoglobin 12.1 g/dL (12.0-15.5) Hematocrit 36.7 % (36.0-47.0) Mean Corpuscular Volume 92 fL (79-100) Mean Corpuscular Hemoglobin 30 pg (25-35) Mean Corpuscular Hemoglobin Concent 33 g/dL (31-37) Red Cell Distribution Width 15.6 % (11.5-14.5) H Platelet Count 216 x10^3/uL (140-400) Neutrophils (%) (Auto) 79 % (31-73) H Lymphocytes (%) (Auto) 8 % (24-48) L Monocytes (%) (Auto) 11 % (0-9) H Eosinophils (%) (Auto) 2 % (0-3) Basophils (%) (Auto) 1 % (0-3) Neutrophils # (Auto) 3.8 x10^3uL (1.8-7.7) Lymphocytes # (Auto) 0.4 x10^3/uL (1.0-4.8) L Monocytes # (Auto) 0.5 x10^3/uL (0.0-1.1) Eosinophils # (Auto) 0.1 x10^3/uL (0.0-0.7) Basophils # (Auto) 0.0 x10^3/uL (0.0-0.2) Sodium Level 138 mmol/L (136-145) Potassium Level 3.7 mmol/L (3.5-5.1) Chloride Level 102 mmol/L (98-107) Carbon Dioxide Level 29 mmol/L (21-32) Anion Gap 7 (6-14) Blood Urea Nitrogen 24 mg/dL (7-20) H Creatinine 1.6 mg/dL (0.6-1.0) H Estimated GFR (Cockcroft-Gault) 31.8 BUN/Creatinine Ratio 15 (6-20) Glucose Level 107 mg/dL (70-99) H Calcium Level 9.9 mg/dL (8.5-10.1) Total Bilirubin 0.5 mg/dL (0.2-1.0) Aspartate Amino Transferase (AST) 15 U/L (15-37) Alanine Aminotransferase (ALT) 9 U/L (14-59) L Alkaline Phosphatase 102 U/L (46-116) Lactate Dehydrogenase 227 U/L (81-234) Creatine Kinase 37 U/L (26-192) Troponin I Quantitative < 0.017 ng/mL (0-0.055) C-Reactive Protein 15.5 mg/L (0-3.3) H YD-Kur-E-Type Natriuretic Peptide 4017 pg/mL (0-124) H Total Protein 8.0 g/dL (6.4-8.2) Albumin 3.1 g/dL (3.4-5.0) L Albumin/Globulin Ratio 0.6 (1.0-1.7) L EKG EKG [] Radiology/Procedures Radiology/Procedures [] Course & Med Decision Making Course & Med Decision Making Pertinent Labs and Imaging studies reviewed. (See chart for details) Patient is a 70-year-old female with a history of congestive heart failure who presents the emergency room complaining of shortness of breath, weight gain, edema. Patient's presentation is concerning for acute congestive heart failure exacerbation. On exam, patient has pitting edema and diffuse crackles. Patient does not need BiPAP at this time. Blood pressure is controlled and nitro ggt will not be started. CBC, BMP, troponin, BNP, EKG, chest x-ray were ordered to evaluate for other causes of shortness of breath and for severity of possible congestive heart failure exacerbation. Workup is consistent with congestive heart failure at this time. Patient will given Lasix at this time. Dragon Disclaimer Dragon Disclaimer This electronic medical record was generated, in whole or in part, using a voice recognition dictation system. Departure Departure: Impression: Primary Impression: Congestive heart failure Disposition: ADMITTED INPATIENT Condition: STABLE Referrals: LUIS ZHOU MD (PCP) Justification of Admission: Justification of Admission: Justification of Admission Dx: Yes HUSSEIN CARSON MD Apr 02, 2020 15:52
[2020-04-02] MEDS ORDERED: MONT10TA80 PO (15:59)
[2020-04-02] MEDS ORDERED: FLUT9.9S NS (16:07)
[2020-04-02] MEDS ORDERED: OXYC5TAB4 PO (16:07)
[2020-04-02] MEDS ORDERED: ALBU2.5V8 IH (16:07)
[2020-04-02] MEDS ORDERED: POLY119P4 PO (16:07)
--- NOTE | 2020-04-02 16:10 | NUR ---
NSG NOTE; ADMISSION ADMIT TO ROOM 117 AT 1450 VIA CART ACCOMP BY EMS PERSONNEL C/O SOA X 6 WEEKS AGO AFTER HOSPITALIZATION IN WHICH LASIX DOSAGE HAD BEEN REDUCED. PT STATES SHE HAS BEEN TAKING HER LASIX AND RESTRICTING HERSELF TO 64 OZ FLUIDS DAILY BUT HAS "NOT BEEN ABLE TO LOSE ENOUGH WATER WEIGHT"
--- NOTE | 2020-04-02 16:10 | PDOC2 ---
CONSULT DOS: DATE: 04/02/20 TIME: 16:10 Reason for Consult: Congestive heart failure Referring Physician: Dr. Hays Chief Complaint Shortness of breath and edema Source: Chart review, Patient Problem List Problems Medical Problems: (1) Congestive heart failure Status: Acute History of Present Illness 70-year-old female with history of sick sinus syndrome s/p permanent pacemaker implantation, chronic systolic heart failure with LVEF 35% and morbid obesity was recently admitted to [facility] for vaginal bleeding from endometrial cancer. She was treated with surgical ligation of pelvic vessels and radiation therapy. Hospital course was complicated with renal insufficiency and apparently her diuretics were held for approximately 2 weeks. She was later found to have acute on chronic systolic heart failure and her Lasix was restarted at 40 mg once daily. She saw me recently in our clinic and complained of dyspnea on exertion and edema. We increased her Lasix to twice daily at that time. She apparently did not respond to this and since she noted that her edema was getting worse, she started taking 80 mg once daily 2 days prior to presentation. She started responding to this dose and her edema is improving with more diuresis but since she was not that mobile and was having frequent accidents, she presented to [facility] for more controlled diuresis with possible Taylor catheter placement. She complained of orthopnea but denied any chest pain, palpitations or syncope. Past Medical History Sick sinus syndrome s/p permanent pacemaker implantation with more recent generator change Chronic systolic heart failure with EF 35% Nonischemic cardiomyopathy Hypertension Hyperlipidemia DVT/PE Pulmonary hypertension Endometrial carcinoma Sleep apnea Morbid obesity Past Surgical History Permanent pacemaker implantation Colon resection and colostomy Colovesical fistula resection Family History Lymphoma Social History Patient denied any smoking, alcohol or drug use Current Medications Current Medications Furosemide (Lasix) 40 mg 1X ONCE IVP ; Start 04/02/20 at 13:45; Stop 04/02/20 at 13:46; Status DC Active Scripts Active Allopurinol 100 Mg Tablet 2 Tab PO DAILY Reported Ventolin Hfa Inhaler (Albuterol Sulfate) 18 Gm Hfa.aer.ad 1 Puff IH PRN Q4HRS PRN Oxycodone Hcl Immed.release (Oxycodone Hcl) 5 Mg Tablet 5 Mg PO PRN Q4HRS PRN Flonase Allergy Relief (Fluticasone Propionate) 9.9 Ml [place].susp 2 Sprays NS DAILY Miralax (Polyethylene Glycol 3350) 119 Gm Powder 17 Gm PO DAILY dissolve in water Vitamin D3 (Cholecalciferol (Vitamin D3)) 2,000 Unit Tab.chew 1 Tab PO DAILY 30 Days Iron (Ferrous Sulfate) 325 Mg Tablet 1 Tab PO DAILY Coreg (Carvedilol) 3.125 Mg Tablet 3.125 Mg PO BIDWMEALS Losartan Potassium (Losartan Potassium) 25 Mg Tablet 25 Mg PO DAILY last dose this morning next dose tomorrow Atorvastatin Calcium 20 Mg Tablet 1 Tab PO HS Lasix (Furosemide) 40 Mg Tablet 1 Tab PO DAILY resume today Klor-Con M20 (Potassium Chloride) 20 Meq Tab.er.prt 1 Tab PO DAILY last dose this morning next dose tomorrow Acetaminophen 500 Mg Tablet 1,000 Mg PO TID last dose this morning next dose this afternoon. Allergies: Coded Allergies: codeine (Verified Allergy, Intermediate, 01/31/20) nitrofurantoin (Verified Allergy, Unknown, 08/24/19) prednisone (Verified Adverse Reaction, Intermediate, 08/24/19) PSYCHOLOGICAL ROS: No: Hallucinations Eyes: No: Loss of vision HEENT: No: Epistaxis Respiratory: YES: Orthopnea, Shortness of breath Cardiovascular: yes: Edema; No: Chest Pain Genitourinary: No: [place] Neurological: No: Seizures Skin: No: Rash General: Alert, mild distress HEENT: Atraumatic Lungs: Other (Bilateral basal crepitations) Heart: Regular rate Abdomen: Soft Extremities: No edema (1-2+ pitting edema) Psych/Mental Status: Mood NL VITALS Vital Signs Date Time Temp Pulse Resp B/P (MAP) Pulse Ox O2 Delivery O2 Flow Rate FiO2 04/02/20 15:18 98.1 65 22 144/73 (96) 94 Room Air Labs Laboratory Tests Test 04/02/20 12:45 White Blood Count 4.8 x10^3/uL (4.0-11.0) Red Blood Count 4.00 x10^6/uL (3.50-5.40) Hemoglobin 12.1 g/dL (12.0-15.5) Hematocrit 36.7 % (36.0-47.0) Mean Corpuscular Volume 92 fL (79-100) Mean Corpuscular Hemoglobin 30 pg (25-35) Mean Corpuscular Hemoglobin Concent 33 g/dL (31-37) Red Cell Distribution Width 15.6 % (11.5-14.5) Platelet Count 216 x10^3/uL (140-400) Neutrophils (%) (Auto) 79 % (31-73) Lymphocytes (%) (Auto) 8 % (24-48) Monocytes (%) (Auto) 11 % (0-9) Eosinophils (%) (Auto) 2 % (0-3) Basophils (%) (Auto) 1 % (0-3) Neutrophils # (Auto) 3.8 x10^3uL (1.8-7.7) Lymphocytes # (Auto) 0.4 x10^3/uL (1.0-4.8) Monocytes # (Auto) 0.5 x10^3/uL (0.0-1.1) Eosinophils # (Auto) 0.1 x10^3/uL (0.0-0.7) Basophils # (Auto) 0.0 x10^3/uL (0.0-0.2) Sodium Level 138 mmol/L (136-145) Potassium Level 3.7 mmol/L (3.5-5.1) Chloride Level 102 mmol/L (98-107) Carbon Dioxide Level 29 mmol/L (21-32) Anion Gap 7 (6-14) Blood Urea Nitrogen 24 mg/dL (7-20) Creatinine 1.6 mg/dL (0.6-1.0) Estimated GFR (Cockcroft-Gault) 31.8 BUN/Creatinine Ratio 15 (6-20) Glucose Level 107 mg/dL (70-99) Calcium Level 9.9 mg/dL (8.5-10.1) Total Bilirubin 0.5 mg/dL (0.2-1.0) Aspartate Amino Transf (AST/SGOT) 15 U/L (15-37) Alanine Aminotransferase (ALT/SGPT) 9 U/L (14-59) Alkaline Phosphatase 102 U/L (46-116) Lactate Dehydrogenase 227 U/L (81-234) Creatine Kinase 37 U/L (26-192) Troponin I Quantitative < 0.017 ng/mL (0-0.055) C-Reactive Protein 15.5 mg/L (0-3.3) PK-Vpd-J-Type Natriuretic Peptide 4017 pg/mL (0-124) Total Protein 8.0 g/dL (6.4-8.2) Albumin 3.1 g/dL (3.4-5.0) Albumin/Globulin Ratio 0.6 (1.0-1.7) Assessment/Plan 1. Acute on chronic systolic heart failure with LVEF 35%. Diurese with intravenous Lasix and consider switching to Bumex prior to discharge. Continue Coreg and losartan. We will consider switching to Entresto as an outpatient. 2. Nonischemic cardiomyopathy: Cardiac catheterization in 2018 did not show any significant coronary disease. The option of pacemaker upgrade to biventricular ICD was discussed during recent office visit but she wanted to defer it for now. 3. Sick sinus syndrome s/p permanent pacemaker implantation with more recent generator change. Recent check showed normal function. 4. Hypertension: Controlled 5. Hyperlipidemia: Continue statin therapy 6. CKD: Stable 7. Endometrial cancer: s/p recent radiation therapy, treat per oncology team 8. Morbid obesity Thank you for your consultation FELICE SORIA MD Apr 02, 2020 16:10
[2020-04-02] MEDS: oxyCODONE IR 5 MG TABLET PO PRN (17:02)
[2020-04-02] MEDS: CARVEDILOL 3.125 MG TABLET PO SCH (17:03)
--- NOTE | 2020-04-02 17:19 | HP ---
ADMIT DATE: 04/02/2020 HISTORY OF PRESENT ILLNESS: The patient is a 70-year-old female patient who presented to the Emergency Room complaining of worsening shortness of breath. She apparently is known to have congestive heart failure and uterine cancer. She apparently was taken off her Lasix for a short period of time, and since that time, she has been unable to get rid of the fluid she collected. She states that she has progressively been gaining weight. She has been doubling her Lasix at home without relief. She is requiring the same amount of oxygen she typically does. She denies any fever. She was evaluated in the Emergency Room and has had a chest x-ray, which basically showed mild congestive heart failure, subtle right basilar infiltrate or atelectasis. Her lab work showed that her CBC was unremarkable. Her chemistry showed that her BUN and creatinine were slightly elevated. Her beta-natriuretic peptide was more than 4000. The patient was admitted for aggressive diuresis. PAST MEDICAL HISTORY: Significant for sick sinus syndrome, status post permanent pacemaker implantation; hypertension, chronic diastolic heart failure, generalized osteoarthritis, DVT and pulmonary embolism, morbid obesity and uterine cancer. PAST SURGICAL HISTORY: Significant for permanent pacemaker implantation, colostomy and resection of colovesical fistula. FAMILY HISTORY: Positive for cancer, hypertension. Negative for premature coronary artery disease. SOCIAL HISTORY: She is single, never , has no children. She does not smoke, drinks alcohol occasionally. Does not use any drugs. 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 ALLERGIES: She is allergic to CODEINE and NITROFURANTOIN as well as PREDNISONE. MEDICATIONS: She is currently on following medications: She is on albuterol sulfate 1 puff every 4 hours, ferrous sulfate 325 mg once a day, atorvastatin calcium 20 mg daily at bedtime, carvedilol 3.125 mg twice a day, losartan potassium 25 mg daily, oxycodone hydrochloride 5 mg every 4 hours as needed, Tylenol 1000 mg 3 times a day, potassium chloride 20 mEq daily. She is on furosemide 40 mg once a day, Flonase 2 sprays to each nostril once a day, polyethylene glycol 17 grams daily, cholecalciferol/vitamin D3 2000 units daily. She is on allopurinol 200 mg once a day. REVIEW OF SYSTEMS: The patient denies any blurring of vision, cataract, glaucoma or macular degeneration. Denied any earache, tinnitus or sensorineural deafness. Denied any nosebleeds, stuffy nose or postnasal drip. Denied any sore throat, sore tongue, toothache, hoarseness of voice or difficulty swallowing. Denied any nausea, vomiting, diarrhea or constipation. Denied any hematemesis, melena or hematochezia. Denied any dysuria, frequency or hematuria. Did complain of incontinence. Did complain of some chest tightness, shortness of breath as well as orthopnea. She also complained of cough with scanty whitish sputum. Denied any chills, rigors or fever. PHYSICAL EXAMINATION: GENERAL: When I examined here, she was pale, but no jaundice, cyanosis or thyromegaly. No jugular venous distention or limb edema. VITAL SIGNS: Her heart rate was 65, blood pressure was 144/73, temperature was 98, respiratory rate 22, and oxygen saturation was 94%. HEAD, EYES, EARS, NOSE AND THROAT: Normocephalic, atraumatic. NECK: Supple. HEART: Showed normal first and second heart sounds. No gallop or murmur. CHEST: Shows central trachea, equal bilateral chest expansion, air entry, vesicular sounds with scattered rhonchi and some crepitations on the left side posteriorly. ABDOMEN: Markedly distended, soft, nontender. No guarding or rigidity. No organomegaly. All hernial orifices intact. Bowel sounds normal. NEUROLOGIC: She is awake, alert, responding appropriately. All cranial nerves intact. EXTREMITIES: She moves extremities without difficulty, although she is mostly wheelchair bound. Examination of the extremities showed no clubbing, cyanosis, but mild bilateral lower limb edema. LABORATORY DATA: This morning showed a white cell count of 4800, hemoglobin 12, hematocrit 36, MCV 92, and platelet count 216,000. Her chemistry showed a serum sodium 138, potassium 3.7, chloride 102, bicarbonate 29, anion gap of 7, BUN 24, creatinine 1.6, estimated GFR was 32 mL per minute. Her glucose 107, calcium was 9.9. Total bilirubin, AST, ALT, alkaline phosphatase were normal. Total beta-natriuretic peptide was 4000. Total protein was 8, albumin 3.1. Her first set of cardiac enzymes showed troponin to be less than 0.017 and her chest x-ray showed that the patient has dual-lead left sided pacemaker present, subtle right basilar infiltrate or atelectasis, slight pulmonary vasculature, congestion noted. There is no pneumothorax or pleural effusion suspected. No acute bone abnormality. ASSESSMENT AND PLAN: In summary, this is a 70-year-old female patient who came in with complaint of worsening shortness of breath. She apparently is known to have chronic diastolic congestive heart failure and the plan is to start her on IV Lasix. She is incontinent and was requesting a Taylor catheter. We will obviously reconcile all her medication and switch her Lasix to be given intravenously and follow her labs and weight on a daily basis. LINDSEY STRONG MD DR: SEBASTIAN/hetal JOB#: [id number] / [id number]
[2020-04-02 19:51] VITALS: BP 103/59
[2020-04-02] MEDS: ALBUTEROL SULFATE 2.5 MG/3 ML NEBU. IH PRN (21:25)
[2020-04-02] MEDS: ATORVASTATIN CALCIUM 20 MG TABLET PO SCH (21:44)
[2020-04-02] MEDS: ACETAMINOPHEN 500 MG TABLET PO SCH (21:44)
[2020-04-02] MEDS ORDERED: MEGE40TA3 PO (22:30)
[2020-04-02 22:44] VITALS: BP 104/69
[2020-04-03 06:17] VITALS: BP 151/72
[2020-04-03 06:28] LABS: CALCIUM 8.9 mg/dL (8.5-10.1); CREATININE 1.5 mg/dL (0.6-1.0); GFR 34.2; POTASSIUM 3.8 mmol/L (3.5-5.1)
--- NOTE | 2020-04-03 08:21 | PDOC ---
CARDIO Progress Notes Date & Time Date of Service DATE: 04/03/20 TIME: 08:20 Time of Evaluation 08:20 Subjective Notes No chest pain. Breathing, swelling improved. Vitals Vitals Vital Signs Date Time Temp Pulse Resp B/P (MAP) Pulse Ox O2 Delivery O2 Flow Rate FiO2 04/03/20 06:17 98.1 69 20 151/72 (98) 94 Room Air 04/02/20 14:34 2.0 Weight Weight [ ] Input and Output I.O. Intake and Output 04/03/20 07:00 Intake Total 850 ml Output Total 825 ml Balance 25 ml Intake Oral 850 ml Output Urine Total 825 ml Laboratory Labs Laboratory Tests Test 04/02/20 12:45 04/03/20 05:45 White Blood Count 4.8 x10^3/uL (4.0-11.0) Red Blood Count 4.00 x10^6/uL (3.50-5.40) Hemoglobin 12.1 g/dL (12.0-15.5) Hematocrit 36.7 % (36.0-47.0) Mean Corpuscular Volume 92 fL (79-100) Mean Corpuscular Hemoglobin 30 pg (25-35) Mean Corpuscular Hemoglobin Concent 33 g/dL (31-37) Red Cell Distribution Width 15.6 % (11.5-14.5) Platelet Count 216 x10^3/uL (140-400) Neutrophils (%) (Auto) 79 % (31-73) Lymphocytes (%) (Auto) 8 % (24-48) Monocytes (%) (Auto) 11 % (0-9) Eosinophils (%) (Auto) 2 % (0-3) Basophils (%) (Auto) 1 % (0-3) Neutrophils # (Auto) 3.8 x10^3uL (1.8-7.7) Lymphocytes # (Auto) 0.4 x10^3/uL (1.0-4.8) Monocytes # (Auto) 0.5 x10^3/uL (0.0-1.1) Eosinophils # (Auto) 0.1 x10^3/uL (0.0-0.7) Basophils # (Auto) 0.0 x10^3/uL (0.0-0.2) Sodium Level 138 mmol/L (136-145) 140 mmol/L (136-145) Potassium Level 3.7 mmol/L (3.5-5.1) 3.8 mmol/L (3.5-5.1) Chloride Level 102 mmol/L (98-107) 105 mmol/L (98-107) Carbon Dioxide Level 29 mmol/L (21-32) 30 mmol/L (21-32) Anion Gap 7 (6-14) 5 (6-14) Blood Urea Nitrogen 24 mg/dL (7-20) 24 mg/dL (7-20) Creatinine 1.6 mg/dL (0.6-1.0) 1.5 mg/dL (0.6-1.0) Estimated GFR (Cockcroft-Gault) 31.8 34.2 BUN/Creatinine Ratio 15 (6-20) Glucose Level 107 mg/dL (70-99) 90 mg/dL (70-99) Calcium Level 9.9 mg/dL (8.5-10.1) 8.9 mg/dL (8.5-10.1) Total Bilirubin 0.5 mg/dL (0.2-1.0) Aspartate Amino Transf (AST/SGOT) 15 U/L (15-37) Alanine Aminotransferase (ALT/SGPT) 9 U/L (14-59) Alkaline Phosphatase 102 U/L (46-116) Lactate Dehydrogenase 227 U/L (81-234) Creatine Kinase 37 U/L (26-192) Troponin I Quantitative < 0.017 ng/mL (0-0.055) C-Reactive Protein 15.5 mg/L (0-3.3) ON-Vej-R-Type Natriuretic Peptide 4017 pg/mL (0-124) Total Protein 8.0 g/dL (6.4-8.2) Albumin 3.1 g/dL (3.4-5.0) Albumin/Globulin Ratio 0.6 (1.0-1.7) Physical Exams HEENT: Neck Supple W Full Motion Chest: Symmetric Lungs: Clear to Auscultation Heart: RRR Abdomen: Soft N/T Extremities: No Edema Neurology: alert, oriented, follow commands Assessment Assessment 1. Acute on chronic systolic CHF; better compensated following IV diuresis 2. NICM; LVEF 35% per echo 11/05. LHC 08/05 without obstructive CAD 3. Hypertension; controlled 4. SSS s/p PPM (Biotronik): . stable. Paced rhythm 5. CKD; Cr stable 6. Hyperlipidemia; statin 7. Endometrial CA; treated with radiation/chemotherapy Recommendations Ongoing diuresis with monitoring of labs HF optimization with BB, ARB, lasix Continue home BP regimen Am labs Supportive care Recommendations Continue diuresis SON BELTRÁN APRN Apr 03, 2020 08:21
[2020-04-03] MEDS: FERROUS SULFATE 325 MG TABLET. PO SCH (08:24)
[2020-04-03] MEDS: CHOLECALCIFEROL (VITAMIN D3) 1,000 UNIT TABLET PO SCH (08:24)
[2020-04-03] MEDS: POTASSIUM CHLORIDE 20 MEQ TABLET.ER. PO SCH (08:24)
[2020-04-03] MEDS: LOSARTAN 25 MG TABLET. PO SCH (08:24)
[2020-04-03] MEDS: FUROSEMIDE 40 MG/4 ML VIAL IVP SCH (08:24)
[2020-04-03] MEDS: ALLOPURINOL 100 MG TABLET. PO SCH (08:25)
[2020-04-03] MEDS: POLYETHYLENE GLYCOL 3350 17 GM PACKET. PO SCH (08:25)
[2020-04-03] MEDS: CARVEDILOL 3.125 MG TABLET PO SCH ×2 (08:25→17:18)
[2020-04-03] MEDS: ACETAMINOPHEN 500 MG TABLET PO SCH ×3 (08:25→21:16)
[2020-04-03] MEDS: oxyCODONE IR 5 MG TABLET PO PRN ×2 (08:26→17:19)
[2020-04-03] MEDS: FLUTICASONE 50MCG/NASAL SPRAY 16GM BOTTLE. NS SCH (08:31)
[2020-04-03] MEDS: MEGESTROL 40 MG TABLET. PO SCH ×2 (09:00→21:16)
[2020-04-03 10:52] VITALS: BP 104/54
[2020-04-03] MEDS: ALBUTEROL SULFATE 2.5 MG/3 ML NEBU. IH PRN ×2 (11:23→21:38)
--- NOTE | 2020-04-03 12:19 | PN ---
DATE: ATTENDING PHYSICIAN: Dr. Hays. SUBJECTIVE: Breathing better. No new complaints. She is alert. She tells me that her oncologist and pest control pilot stopped the Lasix at her last admission at [facility]. She does see Cardiology. She does have an ischemic cardiomyopathy with decreased ejection fraction. OBJECTIVE FINDINGS: VITAL SIGNS: Blood pressure today is 151/72 mmHg, pulse 69 and regular, temperature 98.1 degrees Fahrenheit, oxygen saturation 94% on room air. HEENT: Head is without trauma. Pupils are reactive. Sclerae are nonicteric. Oropharynx is clear. NECK: Supple, no bruits identified. LUNGS: Minimal crackles at bases. CARDIOVASCULAR: Showed regular heart tones. No gallops. ABDOMEN: Obese, protuberant. No organomegaly. Bowel sounds were normoactive. EXTREMITIES: Show 2+ edema. NEUROLOGIC: Focally intact. Speech is fluent. SKIN: Warm and dry. LABORATORY DATA: Followup chemistry showed potassium of 3.8 mEq, creatinine is paradoxically improved to 1.5 mg/dL. ASSESSMENT: 1. A 70-year-old female with acute on chronic congestive heart failure. 2. History of uterine cancer. 3. Previous colon resection. 4. Morbid obesity. 5. Degenerative arthritis. 6. Sick sinus syndrome with permanent pacemaker. 7. History of pulmonary embolism. PLAN: 1. Continue Lasix as ordered. 2. Serial chemistry. 3. Daily weights. 4. Fluid restriction. 5. Restart Megace, but it does have fluid retention properties. 6. Recommendations per Cardiology services. ELISE FU MD DR: MARVIN/hetal JOB#: [id number] / [id number]
[2020-04-03] MEDS: CETIRIZINE HCL 10 MG TABLET PO SCH (13:09)
[2020-04-03] MEDS: PSEUDOEPHEDRINE ER 120 MG TABLET.ER. PO SCH (13:09)
[2020-04-03] MEDS ORDERED: FUROSEMIDE 40 MG/4 ML VIAL IVP ONE (14:00)
[2020-04-03] MEDS ORDERED: POTASSIUM CHLORIDE 20 MEQ TABLET.ER. PO ONE (14:00)
[2020-04-03 15:03] VITALS: BP 117/65
[2020-04-03 18:39] VITALS: BP 121/80
[2020-04-03] MEDS: ATORVASTATIN CALCIUM 20 MG TABLET PO SCH (21:16)
[2020-04-03 23:18] VITALS: BP 151/75
[2020-04-04] MEDS: oxyCODONE IR 5 MG TABLET PO PRN ×3 (00:56→20:27)
[2020-04-04 05:21] VITALS: BP 152/78
[2020-04-04 06:09] LABS: CALCIUM 8.9 mg/dL (8.5-10.1); CREATININE 1.7 mg/dL (0.6-1.0); GFR 29.6; POTASSIUM 4.1 mmol/L (3.5-5.1)
--- NOTE | 2020-04-04 07:26 | EKG ---
[address] [address] Test Date: 2020-04-02 Test Time: 12:42:54 Pat Name: LUIS PISANO Department: Room: 117 A Gender: F Senior Lead Developer: JOHN : 1950 Requested By: LINDSEY STRONG Order Number: [id number] Reading MD: Measurements Intervals [place] Rate: 75 P: ND: QRS: -68 QRSD: 220 T: 97 QT: 432 QTc: 485 Interpretive Statements IRREGULAR RHYTHM, NO P-WAVE FOUND VENTRICULAR PREMATURE COMPLEX(ES) ABNORMAL LEFT AXIS DEVIATION RIGHT BUNDLE BRANCH BLOCK CONSIDER RIGHT VENTRICULAR HYPERTROPHY QRS(T) CONTOUR ABNORMALITY CONSISTENT WITH ANTERIOR INFARCT POSSIBLY RECENT ABNORMAL ECG RI6.02 No previous ECG available for comparison
[2020-04-04] MEDS: ALBUTEROL SULFATE 2.5 MG/3 ML NEBU. IH PRN ×3 (07:47→16:24)
--- NOTE | 2020-04-04 08:19 | PDOC ---
CARDIO Progress Notes Date & Time Date of Service DATE: 04/04/20 TIME: 08:09 Time of Evaluation 08:09 Subjective Notes No chest pain, palpitations, dizziness, diaphoresis. Has cough this am Vitals Vitals Vital Signs Date Time Temp Pulse Resp B/P (MAP) Pulse Ox O2 Delivery O2 Flow Rate FiO2 04/04/20 05:21 98.1 65 20 152/78 (102) 94 Room Air 04/02/20 14:34 2.0 Weight Weight [ ] Input and Output I.O. Intake and Output 04/04/20 07:00 Intake Total 960 ml Output Total 1250 ml Balance -290 ml Intake Oral 960 ml Output Urine Total 1250 ml Laboratory Labs Laboratory Tests Test 04/02/20 12:45 04/03/20 05:45 04/04/20 05:40 White Blood Count 4.8 x10^3/uL (4.0-11.0) Red Blood Count 4.00 x10^6/uL (3.50-5.40) Hemoglobin 12.1 g/dL (12.0-15.5) Hematocrit 36.7 % (36.0-47.0) Mean Corpuscular Volume 92 fL (79-100) Mean Corpuscular Hemoglobin 30 pg (25-35) Mean Corpuscular Hemoglobin Concent 33 g/dL (31-37) Red Cell Distribution Width 15.6 % (11.5-14.5) Platelet Count 216 x10^3/uL (140-400) Neutrophils (%) (Auto) 79 % (31-73) Lymphocytes (%) (Auto) 8 % (24-48) Monocytes (%) (Auto) 11 % (0-9) Eosinophils (%) (Auto) 2 % (0-3) Basophils (%) (Auto) 1 % (0-3) Neutrophils # (Auto) 3.8 x10^3uL (1.8-7.7) Lymphocytes # (Auto) 0.4 x10^3/uL (1.0-4.8) Monocytes # (Auto) 0.5 x10^3/uL (0.0-1.1) Eosinophils # (Auto) 0.1 x10^3/uL (0.0-0.7) Basophils # (Auto) 0.0 x10^3/uL (0.0-0.2) Sodium Level 138 mmol/L (136-145) 140 mmol/L (136-145) 139 mmol/L (136-145) Potassium Level 3.7 mmol/L (3.5-5.1) 3.8 mmol/L (3.5-5.1) 4.1 mmol/L (3.5-5.1) Chloride Level 102 mmol/L (98-107) 105 mmol/L (98-107) 103 mmol/L (98-107) Carbon Dioxide Level 29 mmol/L (21-32) 30 mmol/L (21-32) 30 mmol/L (21-32) Anion Gap 7 (6-14) 5 (6-14) 6 (6-14) Blood Urea Nitrogen 24 mg/dL (7-20) 24 mg/dL (7-20) 27 mg/dL (7-20) Creatinine 1.6 mg/dL (0.6-1.0) 1.5 mg/dL (0.6-1.0) 1.7 mg/dL (0.6-1.0) Estimated GFR (Cockcroft-Gault) 31.8 34.2 29.6 BUN/Creatinine Ratio 15 (6-20) Glucose Level 107 mg/dL (70-99) 90 mg/dL (70-99) 106 mg/dL (70-99) Calcium Level 9.9 mg/dL (8.5-10.1) 8.9 mg/dL (8.5-10.1) 8.9 mg/dL (8.5-10.1) Total Bilirubin 0.5 mg/dL (0.2-1.0) Aspartate Amino Transf (AST/SGOT) 15 U/L (15-37) Alanine Aminotransferase (ALT/SGPT) 9 U/L (14-59) Alkaline Phosphatase 102 U/L (46-116) Lactate Dehydrogenase 227 U/L (81-234) Creatine Kinase 37 U/L (26-192) Troponin I Quantitative < 0.017 ng/mL (0-0.055) C-Reactive Protein 15.5 mg/L (0-3.3) QA-Pwc-W-Type Natriuretic Peptide 4017 pg/mL (0-124) Total Protein 8.0 g/dL (6.4-8.2) Albumin 3.1 g/dL (3.4-5.0) Albumin/Globulin Ratio 0.6 (1.0-1.7) Magnesium Level 2.0 mg/dL (1.8-2.4) Physical Exams HEENT: Neck Supple W Full Motion Chest: Symmetric Lungs: Other (fine crackles ) Heart: RRR Abdomen: Soft N/T Extremities: No Edema Neurology: alert, oriented, follow commands Assessment Assessment 1. Acute on chronic systolic CHF; improved following IV diuresis 2. NICM; LVEF 35% per echo 11/05. LHC 08/05 without obstructive CAD 3. Hypertension; controlled 4. SSS s/p PPM (Biotronik): . stable. Paced rhythm 5. CKD; Cr stable 6. Hyperlipidemia; statin 7. Endometrial CA; treated with radiation/chemotherapy Recommendations Additional dose of IV Lasix this morning and then plan to resume oral Lasix HF optimization with BB, ARB, lasix Discussed 2Gm Na diet and 2000cc FR. HH Supportive care Follow up with Dr. Farris for telehealth May 29 at 1:15pm SON BELTRÁN APRN Apr 04, 2020 08:18
[2020-04-04] MEDS: POLYETHYLENE GLYCOL 3350 17 GM PACKET. PO SCH (08:54)
[2020-04-04] MEDS: CHOLECALCIFEROL (VITAMIN D3) 1,000 UNIT TABLET PO SCH (08:54)
[2020-04-04] MEDS: ALLOPURINOL 100 MG TABLET. PO SCH (08:54)
[2020-04-04] MEDS: LOSARTAN 25 MG TABLET. PO SCH (08:55)
[2020-04-04] MEDS: MEGESTROL 40 MG TABLET. PO SCH (08:55)
[2020-04-04] MEDS: PSEUDOEPHEDRINE ER 120 MG TABLET.ER. PO SCH (08:56)
[2020-04-04] MEDS: CARVEDILOL 3.125 MG TABLET PO SCH ×2 (08:56→17:02)
[2020-04-04] MEDS: FERROUS SULFATE 325 MG TABLET. PO SCH (08:56)
[2020-04-04] MEDS: POTASSIUM CHLORIDE 20 MEQ TABLET.ER. PO SCH (08:56)
[2020-04-04] MEDS: CETIRIZINE HCL 10 MG TABLET PO SCH (08:56)
[2020-04-04] MEDS: ACETAMINOPHEN 500 MG TABLET PO SCH ×3 (08:56→20:29)
[2020-04-04] MEDS: FUROSEMIDE 40 MG/4 ML VIAL IVP SCH (08:57)
[2020-04-04] MEDS: FLUTICASONE 50MCG/NASAL SPRAY 16GM BOTTLE. NS SCH (09:00)
[2020-04-04] MEDS: LIDOCAINE (700MG/PATCH) PATCH. TD SCH (09:45)
--- NOTE | 2020-04-04 10:53 | PN ---
DATE: 04/04/2020 ATTENDING PHYSICIANS: Dr. Hays and Dr. Fu. SUBJECTIVE: The patient is feeling better. She is breathing well on room air. Her sinuses have helped with the antihistamine and her pain is better controlled. She is also diuresing well. OBJECTIVE: VITAL SIGNS: Blood pressure today is 152/78 mmHg, oxygen saturation 94% on room air, pulse 65 and regular, and temperature is 98.1 degrees Fahrenheit. HEENT: Head is without trauma. Pupils are reactive. Sclerae are nonicteric. Oropharynx clear. NECK: Supple, no bruits. LUNGS: Good breath sounds, minimal wheezing in the upper airways. CARDIOVASCULAR: Showed regular heart tones. No gallops. ABDOMEN: Soft, nontender, no organomegaly. Normoactive bowel sounds. EXTREMITIES: Showed trace edema. NEUROLOGIC: Focally intact. Speech is fluent. A Taylor catheter remains in place. Followup chemistries today showed her creatinine to be at 1.7 mg/dL, BUN 27, potassium 4.1 mEq. ASSESSMENT: 1. A 70-year-old female with acute on chronic congestive heart failure. 2. History of uterine cancer with recent initiation of medroxyprogesterone acetate. The mineralocorticoid effects of this Megace has exacerbated her heart failure. 3. Previous colon resection. 4. Morbid obesity. 5. Sick sinus syndrome with permanent pacemaker. 6. Chronic kidney disease, which had the nephrology specialist stop her diuretics. This combination has led to her heart failure. PLAN: 1. Continue Lasix as ordered. 2. Serial chemistries. 3. Daily weights. 4. I would recommend that we stop the Megace for now. 5. Recs per Cardiology Service. 6. Tentative discharge planning for tomorrow. ELISE FU MD DR: MARVIN/hetal JOB#: [id number] / [id number]
[2020-04-04 11:10] VITALS: BP 141/74
--- NOTE | 2020-04-04 14:06 | NUR ---
NURSING NOTE: PACEMAKER PT STATED SHE HAS A BIOTRONIC PACEMAKER. THIS WAS REMOTELY CHECKED ON 03/28/20. TAISHA GIRARD
[2020-04-04 15:26] VITALS: BP 132/67
--- NOTE | 2020-04-04 17:19 | NUR ---
NURSING NOTE PACEMAKER SPOKE WITH REN FROM [employer], HE WILL PAGE A REP TO COME OUT AND CHECK THE PACEMAKER. SHAJI REYNOLDS. Addendum: 04/04/20 at 1727 by GAIL AREVALO RN RN SPOKE WITH SON SMITH/[employer] REP WELL, STATES THE THIRD SPIKE IN THE QRS IS CALLED AN ECG FILTER SPIKE AND THE DEVICE IS FUNCTIONING FINE. SHAJI REYNOLDS.
--- NOTE | 2020-04-04 18:22 | NUR ---
NURSING NOTE PT IN BED UPON MEDICATION ADMINISTRATION AND ASSESSMENT. PATIENT ALERT AND ORIENTED. PLAN TO DC TOMORROW AFTER THE MD ROUNDS. PT COMPLAINED OF BACK PAIN TODAY AND ASKED FOR A LIDOCAINE PATCH. ORDER WAS RECEIVED AND PATCH PLACED ON MIDDLE BACK. PT EXPERIENCED RELIEF WITH ADMINISTRATION. WILL CONTINUE TO MONITOR. SHAJI SUMNER
[2020-04-04 19:55] VITALS: BP 132/66
[2020-04-04] MEDS: ATORVASTATIN CALCIUM 20 MG TABLET PO SCH (20:26)
[2020-04-04] MEDS: PATCH REMOVAL. MC SCH (20:29)
[2020-04-04 23:38] VITALS: BP 128/68
[2020-04-05 05:23] VITALS: BP 169/79
[2020-04-05] MEDS: FLUTICASONE 50MCG/NASAL SPRAY 16GM BOTTLE. NS SCH (08:44)
[2020-04-05] MEDS: FERROUS SULFATE 325 MG TABLET. PO SCH (08:45)
[2020-04-05] MEDS: CETIRIZINE HCL 10 MG TABLET PO SCH (08:45)
[2020-04-05] MEDS: POTASSIUM CHLORIDE 20 MEQ TABLET.ER. PO SCH (08:46)
[2020-04-05] MEDS: LOSARTAN 25 MG TABLET. PO SCH (08:46)
[2020-04-05] MEDS: ALLOPURINOL 100 MG TABLET. PO SCH (08:46)
[2020-04-05] MEDS: CHOLECALCIFEROL (VITAMIN D3) 1,000 UNIT TABLET PO SCH (08:46)
[2020-04-05] MEDS: ACETAMINOPHEN 500 MG TABLET PO SCH ×3 (08:46→20:16)
[2020-04-05] MEDS: PSEUDOEPHEDRINE ER 120 MG TABLET.ER. PO SCH (08:47)
[2020-04-05] MEDS: POLYETHYLENE GLYCOL 3350 17 GM PACKET. PO SCH (08:47)
[2020-04-05] MEDS: CARVEDILOL 3.125 MG TABLET PO SCH ×2 (08:47→17:08)
[2020-04-05] MEDS: LIDOCAINE (700MG/PATCH) PATCH. TD SCH (08:48)
[2020-04-05] MEDS: FUROSEMIDE 40 MG/4 ML VIAL IVP SCH (10:55)
[2020-04-05] MEDS: ALBUTEROL SULFATE 2.5 MG/3 ML NEBU. IH PRN ×2 (11:14→20:43)
[2020-04-05 11:23] VITALS: BP 158/96
--- NOTE | 2020-04-05 13:13 | PN ---
DATE: 04/05/2020 ATTENDING PHYSICIAN: Dr. uF. SUBJECTIVE: The patient is a little bit weak and dizzy this morning. Taylor catheter was removed. She was in the process of trying to get out of bed and transfer to the wheelchair. She got lightheaded, dizzy and she is having difficulty breathing. She has had some bronchoconstriction. I suspect she had an adrenaline moran causing her symptoms and she is not feeling as well. She is also subjectively short of breath, although her oxygen saturation is adequate. OBJECTIVE FINDINGS: VITAL SIGNS: Her blood pressure today is 169/79, pulse 60 and regular, temperature 98.8 degrees Fahrenheit, oxygen saturation 94% on room air. HEENT: Head is without trauma. Pupils are reactive. Sclerae nonicteric. Oropharynx is clear. NECK: Supple, no bruits identified. LUNGS: Minimal wheezing with diminished breath sounds. CARDIOVASCULAR: Showed distant heart tones, but regular. ABDOMEN: Markedly obese, protuberant. I cannot assess any organomegaly. Bowel sounds are hypoactive. EXTREMITIES: Showed severe degenerative arthritis of the knees along with trace pedal edema. NEUROLOGIC: The patient is alert. She is fluent. She is nonambulatory nonweightbearing. She has been in a wheelchair for the last 5 years. ASSESSMENT: 1. A 70-year-old female with acute on chronic congestive heart failure, improved since we got her back on the Lasix. 2. History of uterine cancer, recent initiation of medroxyprogesterone acetate for appetite. The mineralocorticoid effects of Megace has exacerbated heart failure. 3. Previous colon resection. 4. Morbid obesity. 5. Sick sinus syndrome with permanent pacemaker. 6. Chronic kidney disease, stage 3. PLAN: 1. Continue Lasix IV as ordered. 2. Serial chemistry. 3. Daily weights. 4. We have stopped the Megace for now. 5. Recs per Cardiology Service. 6. Discharge plan is tentatively postponed for tomorrow. She will need home healthcare. She cannot afford to go any higher level of care. We had this discussion at length. We will try to get home health care at her subsidized living apartment situation. ELISE FU MD DR: MARVIN/hetal JOB#: [id number] / [id number]
[2020-04-05] MEDS: oxyCODONE IR 5 MG TABLET PO PRN (14:11)
[2020-04-05 15:22] VITALS: BP 130/66
[2020-04-05 19:05] VITALS: BP 121/74
[2020-04-05] MEDS: ATORVASTATIN CALCIUM 20 MG TABLET PO SCH (20:17)
[2020-04-05] MEDS: PATCH REMOVAL. MC SCH (21:00)
[2020-04-05 23:10] VITALS: BP 134/73
[2020-04-06 06:00] VITALS: BP 147/66
[2020-04-06] MEDS: CHOLECALCIFEROL (VITAMIN D3) 1,000 UNIT TABLET PO SCH (08:54)
[2020-04-06] MEDS: POTASSIUM CHLORIDE 20 MEQ TABLET.ER. PO SCH (08:54)
[2020-04-06] MEDS: CETIRIZINE HCL 10 MG TABLET PO SCH (08:55)
[2020-04-06] MEDS: FERROUS SULFATE 325 MG TABLET. PO SCH (08:55)
[2020-04-06] MEDS: ALLOPURINOL 100 MG TABLET. PO SCH (08:55)
[2020-04-06] MEDS: LOSARTAN 25 MG TABLET. PO SCH (08:55)
[2020-04-06] MEDS: CARVEDILOL 3.125 MG TABLET PO SCH (08:55)
[2020-04-06] MEDS: ACETAMINOPHEN 500 MG TABLET PO SCH (08:56)
[2020-04-06] MEDS: PSEUDOEPHEDRINE ER 120 MG TABLET.ER. PO SCH (08:56)
[2020-04-06] MEDS: POLYETHYLENE GLYCOL 3350 17 GM PACKET. PO SCH (09:00)
[2020-04-06] MEDS: FLUTICASONE 50MCG/NASAL SPRAY 16GM BOTTLE. NS SCH (09:00)
[2020-04-06] MEDS: FUROSEMIDE 40 MG/4 ML VIAL IVP SCH (09:00)
[2020-04-06] MEDS: LIDOCAINE (700MG/PATCH) PATCH. TD SCH (09:01)
--- NOTE | 2020-04-06 09:21 | NUR ---
pt refused lasix IV push and stated that she anticipated going home today and will take her 40mg Lasix pill at home so she "doesn't pee all over the place like yesterday. Unless I will be going home around 5pm then ill take it"....
[2020-04-06 11:28] VITALS: BP 137/79
--- NOTE | 2020-04-06 11:46 | NUR ---
Discharge Note: LUIS PISANO 1 [facility] Discharge instructions and discharge home medications reviewed with Patient and a copy given. All questions have been answered and understanding verbalized. All belongings taken with pt. Peripheral IV was discontinued. Patient discharged to Home w/services with Mandie with EMS via [facility] for transportation back home to [facility].
--- NOTE | 2020-04-06 12:09 | PDOC ---
PROGRESS NOTES Date of Service DOS: DATE: 04/06/20 TIME: 12:07 Diagnosis Problem Problems Medical Problems: (1) Congestive heart failure Status: Acute Assessment 1. Acute on chronic systolic CHF; much better compensated with diuresis. Continue current medical regimen. 2. NICM; LVEF 35% per echo 11/05. LHC 08/05 without obstructive CAD 3. Hypertension; controlled 4. SSS s/p PPM (Biotronik): . stable. Paced rhythm 5. CKD; Cr stable 6. Hyperlipidemia; statin 7. Endometrial CA; treated with radiation/chemotherapy Okay for DC from cardiac standpoint. Follow up for telehealth May 29 at 1:15pm Objective Vital Signs Date Time Temp Pulse Resp B/P (MAP) Pulse Ox O2 Delivery O2 Flow Rate FiO2 04/06/20 11:28 98.1 77 20 137/79 (98) 96 Room Air 04/02/20 14:34 2.0 Intake and Output 04/06/20 07:00 Intake Total 780 ml Output Total 1100 ml Balance -320 ml Intake Oral 780 ml Output Urine Total 1100 ml # Voids 4 # Bowel Movements 1 Review of Relevant I have reviewed the following items devin (where applicable) has been applied. Vitals/I & O Vital Signs Date Time Temp Pulse Resp B/P (MAP) Pulse Ox O2 Delivery O2 Flow Rate FiO2 04/06/20 11:28 98.1 77 20 137/79 (98) 96 Room Air 04/02/20 14:34 2.0 I & O 04/05/20 04/05/20 04/06/20 15:00 23:00 07:00 Intake Total 540 ml 240 ml Output Total 1100 ml Balance 540 ml -860 ml Justification of Admission: Justification of Admission: Justification of Admission Dx: Yes FELICE SORIA MD Apr 06, 2020 12:09
--- NOTE | 2020-04-06 16:50 | DS ---
DATE OF DISCHARGE: 04/06/2020 ATTENDING PHYSICIAN: Dr. Hays. FINAL DISCHARGE DIAGNOSES: 1. [id number] congestive heart failure, systolic. 2. History of endometrial cancer, currently managed at [facility]. 3. Previous colon resection. 4. Morbid obesity. 5. Sick sinus syndrome with permanent pacemaker. 6. Chronic kidney disease stage 3. 7. Generalized debilitation. HISTORY AND PHYSICAL: This is a 70-year-old female who has been living independently. However, due to her thighs and her arthritis in her knees, she has not ambulated for the last 5 years. She gets around in a wheelchair. She had a recent diagnosis of endometrial carcinoma, treated through the oncology services at [facility]. She was seen by Nephrology. The course of events that led her to her exacerbation of heart failure is a combination of Nephrology Services stopped her diuretics because her creatinine was going up. In addition, they added medroxyprogesterone acetate as appetite stimulant. The mineralocorticoid effects of the steroids caused retention of fluids and she was quite symptomatic. She had vascular congestion and symptoms consistent with congestive heart failure, admitted for treatment. PAST MEDICAL HISTORY: Significant for the generalized arthritis, endometrial cancer, labile hypertension. Her mind is quite sharp. She gets around with some assistance in an assisted living apartment complex. She has a wheelchair. PERTINENT LABORATORY AND X-RAY STUDIES: Chemistry showed stable creatinine of 1.7 mg/dL, which is about her baseline. Potassium was replaced up to 4.1 mEq. Hemoglobin maintained at 12.1 g/dL with a normal white count. COURSE IN THE HOSPITAL: The patient was admitted. She responded to intravenous Lasix. Cardiology Service saw her in consultation, their recommendation on the chart. She did well with initiation of diuretic therapy. Diet was advanced. Chemistry showed stable creatinine. She has some allergic rhinitis symptoms, which responded well to Zyrtec and pseudoephedrine. By the 5th hospital day, her lungs were clear. She was improved and we started her back on her oral Lasix. She is discharged home with Lasix 80 mg p.o. daily, K-Dur 20 mEq daily, Claritin-D 10/240 one daily. Continuation of her albuterol, allopurinol 200 mg daily, Lipitor 20 mg daily, Coreg 3.125 b.i.d., cholecalciferol, Flonase nasal spray, losartan 25 mg daily, oxycodone p.r.n. pain, MiraLax 17 g daily and potassium supplementation. Her prognosis is fair. She was discharged then from our hospital in stable condition with explicit instructions and followup care. She will have followup visit and recheck lab work through her primary care physician, Dr. Luis Badillo. ELISE FU MD DR: MARVIN/hetal JOB#: [id number] / [id number] LUIS Richter MD
== END 2020-04-06 11:43 | disposition home health service (06) | DRG 291 ==
LOC: ER 12:36 → 1 SOUTH 13:45 → ER 14:45
PROVIDERS: ADMIT Internal Medicine; ATTEND Internal Medicine
DX: I13.0 Hypertensive heart and chronic kidney disease with heart failure and stage 1 through stage 4 chronic kidney disease, or unspecified chronic kidney disease (principal); I50.43 Acute on chronic combined systolic (congestive) and diastolic (congestive) heart failure; J98.11 Atelectasis; Z68.42 Body mass index [BMI] 45.0-49.9, adult; I42.8 Other cardiomyopathies; E66.01 Morbid (severe) obesity due to excess calories; E78.5 Hyperlipidemia, unspecified; I25.5 Ischemic cardiomyopathy; I27.20 Pulmonary hypertension, unspecified; I49.5 Sick sinus syndrome; J30.9 Allergic rhinitis, unspecified; M13.0 Polyarthritis, unspecified; N18.3 Chronic kidney disease, stage 3 (moderate); R32 Unspecified urinary incontinence; C54.1 Malignant neoplasm of endometrium; Z79.899 Other long term (current) drug therapy; Z80.7 Family history of other malignant neoplasms of lymphoid, hematopoietic and related tissues; Z82.49 Family history of ischemic heart disease and other diseases of the circulatory system; Z86.711 Personal history of pulmonary embolism; Z88.8 Allergy status to other drugs, medicaments and biological substances; Z90.49 Acquired absence of other specified parts of digestive tract; Z92.3 Personal history of irradiation; Z93.3 Colostomy status; Z95.0 Presence of cardiac pacemaker
CPT/HCPCS: 36415; 71045; 80048; 80053; 82550; 83615; 83735; 83880; 84484; 85025; 86140; 93005; 94640; 94760; J1940; 97110; J7613

== ENCOUNTER → 2020-04-18 | Outpatient (CLI) | payer MEDICARE, OTHER ==
[2020-04-06 11:28] VITALS: BP 137/79
[~2020-04-18] MED LIST changes: +ALBU2.5V8 IH; +FLUT9.9S NS; +MEGE40TA3 PO; +MONT10TA80 PO; +OXYC5TAB4 PO; +POLY119P4 PO
--- NOTE | 2020-04-18 17:38 | RAD ---
CHEST PA LATERAL History: COUGH, ACUTE BRONCHITIS, CHF / Comparison: 04/02/2020 portable upright frontal view of the chest. Findings: Frontal and lateral views of the chest were obtained. Dual-lead left-sided pacemaker is present. The cardiomediastinal silhouette is normal. Pulmonary vasculature is normal. The lungs are clear. Notable decrease in right basilar infiltrate or atelectasis. Subtle interstitial thickening of the lung field similar to previous exam. Blunting of the left costophrenic angle which may represent a small effusion is again seen. There is no acute bone abnormality. IMPRESSION: Small right pleural effusion. Notably improved aeration of right lung base. No new infiltrate. Electronically signed by: Jose Shi MD (04/18/2020 5:35 PM) [id number]
== END | disposition home or self-care (01) ==
LOC: DXRAD 10:50
PROVIDERS: ATTEND Physician Assistant
DX: J20.9 Acute bronchitis, unspecified (principal); J90 Pleural effusion, not elsewhere classified; Z95.0 Presence of cardiac pacemaker
CPT/HCPCS: 71046

== ENCOUNTER 2020-04-19 07:14 | Observation (INO) | payer MEDICARE, OTHER ==
[~2020-04-19] VITALS: Ht 157.5 cm; Wt 122.2 kg
[2020-04-19] MEDS ORDERED: ONDANSETRON PF 4 MG/2 ML VIAL. IVP ONE (07:30)
--- NOTE | 2020-04-19 07:32 | PHYS DOC ---
Past History Past Medical History: Cancer, CHF, Hypertension, Other Past Surgical History: Pacemaker, Other Additional Past Surgical Histo: colon resect. pacemaker insertion Smoking: Non-smoker Alcohol Use: None Drug Use: None General Adult EDM: Chief Complaint: DIZZY/LIGHT HEADED HPI: HPI: Patient is a 70-year-old female who was brought here by EMS from home due to dizziness associate with nausea vomiting. Patient went to sleep at 1 AM this morning, she was normal. Patient woke up this morning at 6:30 AM, felt really dizzy, the room was spinning around her, then she started having nausea and vomiting. Patient also had some ringing sensation in her left ear. Patient denies any headache, no blurry vision, no neck pain, no weakness or numbness anywhere. Patient denies any slow speech. Patient denies any cough or fever, no chest pain, no trouble breathing. Patient denies any abdominal pain. Patient says She never had this problem before. Review of Systems: Review of Systems: Constitutional: Denies fever or chills Eyes: Denies change in visual acuity HENT: Denies nasal congestion or sore throat Respiratory: Denies cough or shortness of breath Cardiovascular: Denies chest pain or edema GI: Denies abdominal pain, positive for nausea, vomiting, no bloody stools or diarrhea : Denies dysuria Musculoskeletal: Denies back pain or joint pain Integument: Denies rash Neurologic: Denies headache, focal weakness or sensory changes. Positive for dizziness. Endocrine: Denies polyuria or polydipsia Lymphatic: Denies swollen glands Psychiatric: Denies depression or anxiety Heart Score: Risk Factors: Risk Factors: DM, Current or recent (<one month) smoker, HTN, HLP, family history of CAD, obesity. Risk Scores: Score 0 - 3: 2.5% MACE over next 6 weeks - Discharge Home Score 4 - 6: 20.3% MACE over next 6 weeks - Admit for Clinical Observation Score 7 - 10: 72.7% MACE over next 6 weeks - Early Invasive Strategies Allergies: Allergies: Allergies Coded Allergies Type Severity Reaction Last Updated Verified codeine Allergy Intermediate 01/31/20 Yes nitrofurantoin Allergy Intermediate 04/04/20 Yes prednisone Adverse Reaction Intermediate 08/24/19 Yes Physical Exam: PE: Constitutional: Well developed, well nourished, no acute distress, non-toxic appearance. [] HENT: Normocephalic, atraumatic, bilateral external ears normal, oropharynx moist, no oral exudates, nose normal. [] Eyes: PERRLA, EOMI, conjunctiva normal, no discharge. [] Neck: Normal range of motion, no tenderness, supple, no stridor. [] Cardiovascular:Heart rate regular rhythm, no murmur [] Lungs & Thorax: Bilateral breath sounds clear to auscultation [] Abdomen: Bowel sounds normal, soft, no tenderness, no masses, no pulsatile masses. [] Skin: Warm, dry, no erythema, no rash. [] Back: No tenderness, no CVA tenderness. [] Extremities: No tenderness, no cyanosis, no clubbing, ROM intact, no edema. [] Neurologic: Alert and oriented X 3, normal motor function, normal sensory function, no focal deficits noted. [] Psychologic: Affect normal, judgement normal, mood normal. [] Current Patient Data: Labs: Laboratory Tests Test 04/19/20 07:20 White Blood Count 4.0 x10^3/uL Red Blood Count 3.88 x10^6/uL Hemoglobin 11.4 g/dL Hematocrit 35.1 % Mean Corpuscular Volume 90 fL Mean Corpuscular Hemoglobin 29 pg Mean Corpuscular Hemoglobin Concent 33 g/dL Red Cell Distribution Width 16.1 % Platelet Count 201 x10^3/uL Neutrophils (%) (Auto) 72 % Lymphocytes (%) (Auto) 13 % Monocytes (%) (Auto) 11 % Eosinophils (%) (Auto) 3 % Basophils (%) (Auto) 1 % Neutrophils # (Auto) 2.9 x10^3uL Lymphocytes # (Auto) 0.5 x10^3/uL Monocytes # (Auto) 0.4 x10^3/uL Eosinophils # (Auto) 0.1 x10^3/uL Basophils # (Auto) 0.0 x10^3/uL Prothrombin Time 11.4 SEC Prothromb Time International Ratio 1.1 Activated Partial Thromboplast Time 24 SEC Sodium Level 135 mmol/L Potassium Level 4.5 mmol/L Chloride Level 99 mmol/L Carbon Dioxide Level 25 mmol/L Anion Gap 11 Blood Urea Nitrogen 27 mg/dL Creatinine 1.5 mg/dL Estimated GFR (Cockcroft-Gault) 34.2 BUN/Creatinine Ratio 18 Glucose Level 108 mg/dL Calcium Level 9.8 mg/dL Magnesium Level 1.9 mg/dL Total Bilirubin 0.6 mg/dL Aspartate Amino Transf (AST/SGOT) 17 U/L Alanine Aminotransferase (ALT/SGPT) 10 U/L Alkaline Phosphatase 101 U/L Troponin I Quantitative 0.018 ng/mL AO-Bsi-Q-Type Natriuretic Peptide 4011 pg/mL Total Protein 7.5 g/dL Albumin 3.3 g/dL Albumin/Globulin Ratio 0.8 Current Medications Medications (Trade) Dose Ordered Sig/Bere Route PRN Reason Start Time Stop Time Status Last Admin Dose Admin Ondansetron HCl (Zofran) 4 mg 1X ONCE IVP 04/19/20 07:30 04/19/20 07:32 DC 04/19/20 08:05 EKG: EKG: EKG was done at 755, heart rate of 63 bpm, sinus rhythm, no ST segment elevation. Wide QRS complex. Radiology/Procedures: Radiology/Procedures: [][address] [address] IMAGING REPORT Signed PATIENT: LUIS PISANO LACCOUNT: [id number] : 1950 LOCATION: ER AGE: 70 SEX: F EXAM STATUS: PRE ER ORD. PHYSICIAN: ELINA SULTANA DO REASON: dizziness PROCEDURE: CT CODE STROKE HEAD WO EXAM: CT HEAD WITHOUT CONTRAST. HISTORY: Code stroke. Vertigo. TECHNIQUE: Computed tomography of the head was performed without intravenous contrast. *One or more of the following individualized dose reduction techniques were utilized for this examination: 1. Automated exposure control. 2. Adjustment of the mA and/or kV according to patient size. 3. Use of iterative reconstruction technique. COMPARISON: None. FINDINGS: There is no intracranial hemorrhage. Randall-white differentiation is preserved. The ventricles are normal in size and position. The visualized paranasal sinuses appear clear. The orbits are unremarkable. The temporal bones are unremarkable. The calvarium reveals no suspicious lesions. IMPRESSION: 1. No intracranial hemorrhage. These findings were called to Dr. Sultana by Rosales Mac on 04/19/2020 at 8:04 AM. FOR INTERNAL CODING PURPOSES RESULT CODE: (C) Electronically signed by: Madiha Mac MD (04/19/2020 8:05 AM) [id number] DICTATED AND SIGNED BY: ANNA MAC MD DATE: 04/19/2005 CC: LUIS ZHOU MD; ELINA SULTANA DO ~ Course & Med Decision Making: Course & Med Decision Making Pertinent Labs and Imaging studies reviewed. (See chart for details) Patient is a 70-year-old female who presented with vertigo symptoms. She had no other neurological symptoms. Patient'S CT scan CAME back normal. Discussed with the neurologist on-call Dr. Solano who does not think that patient has stroke symptoms. He said that patient has vertigo, recommended patient admitted to hospital for further treatment. No IV TPA needed Discussed with Dr. Wiseman, hospitalist, agreed to admit patient Dragon Disclaimer: Vivian Disclaimer: This electronic medical record was generated, in whole or in part, using a voice recognition dictation system. Departure Departure: Impression: Primary Impression: Acute onset of severe vertigo Disposition: ADMITTED INPATIENT Admitting Physician: Charlie Wiseman Condition: IMPROVED Referrals: LUIS ZHOU MD (PCP) ELINA SULTANA DO Apr 19, 2020 07:32
[2020-04-19 07:41] LABS: BASO % 1 % (0-3); EOS # 0.1 x10^3/uL (0.0-0.7); EOS % 3 % (0-3); HEMATOCRIT 35.1 % (36.0-47.0); HEMOGLOBIN 11.4 g/dL (12.0-15.5); LYMPH # 0.5 x10^3/uL (1.0-4.8); LYMPH % 13 % (24-48); MEAN CORPUSCULAR HEMOGLOBIN 29 pg (25-35); MEAN CORPUSCULAR HGB CONC 33 g/dL (31-37); MEAN CORPUSCULAR VOLUME 90 fL (79-100); MONO # 0.4 x10^3/uL (0.0-1.1); MONO % 11 % (0-9); NEUT # 2.9 x10^3uL (1.8-7.7); NEUT % 72 % (31-73); PLATELET COUNT 201 x10^3/uL (140-400); RED BLOOD COUNT 3.88 x10^6/uL (3.50-5.40); RED CELL DISTRIBUTION WIDTH 16.1 % (11.5-14.5)
[2020-04-19 07:50] LABS: CALCIUM 9.8 mg/dL (8.5-10.1); CREATININE 1.5 mg/dL (0.6-1.0); GFR 34.2; POTASSIUM 4.5 mmol/L (3.5-5.1)
[2020-04-19 08:02] LABS: ALBUMIN 3.3 g/dL (3.4-5.0); ALBUMIN/GLOBULIN RATIO 0.8 (1.0-1.7); MAGNESIUM 1.9 mg/dL (1.8-2.4); TOTAL BILIRUBIN 0.6 mg/dL (0.2-1.0); TOTAL PROTEIN 7.5 g/dL (6.4-8.2)
--- NOTE | 2020-04-19 08:08 | RAD ---
EXAM: CT HEAD WITHOUT CONTRAST. HISTORY: Code stroke. Vertigo. TECHNIQUE: Computed tomography of the head was performed without intravenous contrast. *One or more of the following individualized dose reduction techniques were utilized for this examination: 1. Automated exposure control. 2. Adjustment of the mA and/or kV according to patient size. 3. Use of iterative reconstruction technique. COMPARISON: None. FINDINGS: There is no intracranial hemorrhage. Randall-white differentiation is preserved. The ventricles are normal in size and position. The visualized paranasal sinuses appear clear. The orbits are unremarkable. The temporal bones are unremarkable. The calvarium reveals no suspicious lesions. IMPRESSION: 1. No intracranial hemorrhage. These findings were called to Dr. Hoffman by Rosales Mac on 04/19/2020 at 8:04 AM. FOR INTERNAL CODING PURPOSES RESULT CODE: (C) Electronically signed by: Madiha Mac MD (04/19/2020 8:05 AM) [id number]
--- NOTE | 2020-04-19 08:11 | EKG ---
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
[2020-04-19] MEDS ORDERED: MECLIZINE 12.5 MG TABLET. PO ONE (09:00)
[2020-04-19] MEDS ORDERED: ONDANSETRON PF 4 MG/2 ML VIAL. IVP PRN (09:00)
[2020-04-19 10:19] VITALS: BP 170/78
[2020-04-19] MEDS ORDERED: diazePAM 2 MG TABLET. PO ONE (11:15)
[2020-04-19] MEDS: MECLIZINE 12.5 MG TABLET. PO SCH ×3 (11:28→20:51)
[2020-04-19] MEDS ORDERED: ALBUTEROL SULFATE 2.5 MG/3 ML NEBU. IH PRN (12:00)
--- NOTE | 2020-04-19 12:04 | NUR ---
PATIENT IS A 70 Y O F ARRIVED VIA EMS ACCOMPANIED BY STAFF. PATIENT IS A/O X 4 CALM AND COOPERATIVE UPON ASSESSMENT, VS OBTAINED AND STABLE. PT IS A W/C BOUND. PT C/O DIZZINESS AND SOA. NOTIFIED, ORDERS OBTAINED. PATIENT IS ORIENTED TO ROOM AND HOSPITAL POLICIES, BELONGINGS INVENTORIED. WILL CONTINUE TO MONITOR.
--- NOTE | 2020-04-19 12:07 | HP ---
ADMIT DATE: 04/19/2020 ATTENDING PHYSICIAN: Dr. Fu. CHIEF COMPLAINT: Dizziness. HISTORY OF PRESENT ILLNESS: The patient is a 70-year-old female, well known to us from an admission just 2 weeks ago. She has new onset of dizziness. She went to bed last night at 1:00 a.m., she woke up, the room was spinning, she was very nauseated and she had a ringing sensation. She has had some allergic rhinitis symptoms. I actually recommended [id number] Claritin-D, but when she went to see her primary care provider, they were concerned about blood pressure with pseudoephedrine, she never got that filled. In any event, she has symptoms of vertigo. A CT of the head showed no evidence of acute stroke. She was concerned of having a stroke. I explained to her that this is allergy related. She is admitted then for further treatment and evaluation. She was doing a little better. Nausea had resolved. PAST MEDICAL HISTORY: Significant for acute on chronic congestive heart failure, systolic in nature; endometrial cancer managed at [facility], previous colon resection, morbid obesity, sick sinus syndrome with permanent pacemaker, chronic kidney disease stage 3, and generalized debilitation. She has morbid obesity. She has not ambulated in several years. She gets around in a wheelchair. FAMILY HISTORY: Noncontributory. She is single. She has 2 sisters that are also elderly. She has been living independently in her own apartment. CURRENT MEDICATIONS: Reviewed from the last hospitalization 2 weeks ago, she was discharged on Lasix 80 mg daily, K-Dur, Claritin-D, albuterol, allopurinol, Lipitor, Coreg 3.125 mg b.i.d., cholecalciferol, Flonase, losartan 25 mg daily, oxycodone p.r.n., MiraLax and potassium supplementation. ALLERGIES: She has allergies to CODEINE, NITROFURANTOIN and PREDNISONE, exact etiology is unclear. I do not believe she has an allergy to prednisone. She has taken other steroids before. REVIEW OF SYSTEMS: Significant for the allergic rhinitis. She has been doing fairly well. She had admission just 2 weeks ago. She was discharged on 04/06. She denied any vomiting, had some dry heaves. All other systems reviewed and turned to be negative. PHYSICAL EXAMINATION: GENERAL: When I saw her, this is a pleasant, alert, bright female. INITIAL VITAL SIGNS: Showed a blood pressure 158/96, pulse is 66 and regular, temperature 97.7 degrees Fahrenheit, oxygen saturation 92% on room air. HEENT: Head is without trauma. Pupils are reactive. No nystagmus. NECK: Supple, no bruits identified. LUNGS: Otherwise clear. CARDIOVASCULAR: Showed regular heart tones. No gallops. ABDOMEN: Soft, obese, protuberant. No organomegaly. Bowel sounds are normoactive. EXTREMITIES: Showed trace edema. NEUROLOGIC: Focally intact. She is nonambulatory. Speech is fluent. SKIN: Warm and dry. PERTINENT LABORATORY AND X-RAY STUDIES: CT of the head showed no acute intracranial process. Hemoglobin maintained 11.4 g/dL with white count of 4000. Electrolytes are within normal range. Creatinine 1.5 mg/dL, nonfasting blood sugar 108. Cardiac enzymes negative for ischemia. BNP is 4000. ASSESSMENT: 1. A 70-year-old female with acute positional vertigo, symptomatic. 2. Acute on chronic congestive heart failure, compensated. 3. History of endometrial cancer. 4. Previous colon resection. 5. Morbid obesity. 6. Sick sinus syndrome. 7. Chronic kidney disease. 8. Generalized debilitation. PLAN: 1. Admit. 2. Bed rest. 3. Diet as tolerated. 4. Continue home meds. 5. Scheduled meclizine. 6. Scheduled low dose diazepam for membrane stabilization. 7. Empiric course, short-burst of corticosteroids. ELISE FU MD DR: MARVIN/hetal JOB#: [id number] / [id number] LUIS Richter MD
[2020-04-19] MEDS: diazePAM 2 MG TABLET. PO SCH ×3 (13:28→20:51)
[2020-04-19] MEDS: methylPREDNISolone SOD SUCC PF 125 MG/2 ML VIAL. IV SCH ×2 (13:29→20:51)
[2020-04-19] MEDS: ALLOPURINOL 100 MG TABLET. PO SCH (14:13)
[2020-04-19] MEDS: LOSARTAN 25 MG TABLET. PO SCH (14:13)
[2020-04-19] MEDS: FUROSEMIDE 40 MG TABLET PO SCH (14:14)
[2020-04-19] MEDS: POTASSIUM CHLORIDE 20 MEQ TABLET.ER. PO SCH (14:14)
[2020-04-19] MEDS: ASPIRIN CHEWABLE 81 MG TABLET. PO SCH (14:14)
[2020-04-19] MEDS: ACETAMINOPHEN 500 MG TABLET PO SCH ×2 (14:14→20:51)
[2020-04-19] MEDS: CHOLECALCIFEROL (VITAMIN D3) 1,000 UNIT TABLET PO SCH (14:14)
[2020-04-19 14:47] VITALS: BP 148/80
[2020-04-19] MEDS: CARVEDILOL 3.125 MG TABLET PO SCH (16:15)
[2020-04-19 18:19] LABS: COLOR,URINE YELLOW
[2020-04-19 18:20] LABS: BACTERIA,URINE 0 /HPF (0-FEW); BILIRUBIN,URINE NEG (NEG); CLARITY,URINE CLOUDY; GLUCOSE,URINE NEG (NEG); NITRITE,URINE NEG (NEG); RBC,URINE >40 /HPF (0-2); SQUAMOUS EPITHELIAL CELL,UR FEW /LPF; UROBILINOGEN,URINE 0.2 mg/dL (0.2 mg/dL)
[2020-04-19 19:00] VITALS: BP 122/71
--- NOTE | 2020-04-19 19:06 | CONS ---
DATE OF CONSULTATION: 04/19/2020 NEUROLOGY CONSULTATION REFERRING PHYSICIAN: Dr. Wiseman. REASON FOR CONSULTATION: Severe dizziness. HISTORY OF PRESENT ILLNESS: This is a 70-year-old right-handed female, who was readmitted through Emergency Room this morning after she presented with acute onset of dizziness described as "spinning." According to the patient, she was lying in bed this morning at 6:30 when she has had a dizzy spell described as spinning and associated with nausea. The patient had dry heaves. When she tried to get out of the bed, she started vomiting. The patient was concerned about having a stroke. Therefore, EMS was activated and transferred the patient to the Emergency Room for further evaluation. In the Emergency Room, the patient was given antinausea medications intravenously. She denies chest pain, shortness of breath or palpitation, headaches, dysarthria or dysphagia. The dizzy spell has improved since admission, but she continues to have mild dizziness when she moves her head to the left side quickly. The nausea has resolved. The patient had dizzy spell a year ago when she was anemic and hemoglobin was 6. Due to endometriosis cancer, required surgery. Initial nonenhanced head CT scan revealed no evidence of acute intracranial process and paranasal sinuses were clear. Today, the patient was able to sit up in the bed. PAST MEDICAL HISTORY: Significant for tinnitus in the right ear, history of congestive heart failure, coronary artery disease, status post pacemaker placement, hiatal hernia, obesity, arthritis, gout and depression, history of endometriosis cancer, osteoarthritis and right hearing loss. PAST SURGICAL HISTORY: Positive for abdominal surgery, colon resection with ostomy. FAMILY HISTORY: Noncontributory. SOCIAL HISTORY: The patient lives independently. She denies smoking, alcohol drinking, or illicit drug use. ALLERGIES: CODEINE, NITROFURANTOIN AND PREDNISONE. REVIEW OF SYSTEMS: A 10-point review of system was performed as mentioned above in history of present illness and consistent with vertigo, mainly when she turns her head to the left side quickly. PHYSICAL EXAMINATION: GENERAL: Obese female, not in acute distress. She weighs 122.2 kilos. VITAL SIGNS: Blood pressure 148/80, respiratory rate 22, pulse is 65, oxygen saturation is 93 and temperature 97.7. HEENT: Normocephalic, atraumatic, otherwise unremarkable. NECK: Supple. Negative for carotid bruit, lymphadenopathy or thyromegaly. LUNGS: With diminished breath sounds on both bases. No scattered crackles. CARDIOVASCULAR: Regular rate and rhythm, normal S1, S2. ABDOMEN: Soft. Bowel sounds positive. EXTREMITIES: Negative for cyanosis, clubbing or edema. NEUROLOGICAL: MENTAL STATUS: The patient is alert and oriented x3. The speech is fluent. There is no language dysfunction. Memory, judgment, and abstract thinking are normal. The patient denies hallucination or delusion. CRANIAL NERVES: Visual booker are full. The pupils are reactive to light and accommodation. The extraocular movements are intact. There is no nystagmus. There is no facial motor or sensory deficits. Hearing is diminished bilaterally. The palate elevated symmetrically. Sternocleidomastoid muscles are powerful bilaterally. The patient shrugs her shoulders symmetrically and protrudes her tongue in the midline without fasciculation or atrophy. MOTOR EXAMINATION: No focal muscle bulk was seen. The tone is normal. The strength is 4/5 throughout. SENSORY EXAMINATION: Revealed normal pinprick and light touch senses throughout. Deep tendon reflexes were asymmetric and hypoactive with absent Achilles responses. GAIT: Not tested. The patient ambulates with wheelchair due to bilateral severe arthritis of the keens and of the hips. LABORATORY DATA: CBC revealed white blood cells of 4000, hemoglobin 11.4, hematocrit 35.1, platelet count 201,000. Chemistry revealed sodium of 135, potassium 4. 5, chloride 99, CO2 of 29, BUN 27, creatinine 1.5, glucose 108, calcium 9.8. Troponin level is 0.01. BNP is high at ___. Coagulation is normal PT and PTT. DIAGNOSTIC DATA: A nonenhanced head CT scan is unremarkable. IMPRESSION: 1. Acute onset of vertigo, aggravated by moving the head to the left side, associated with nausea and vomiting, subsided with antinausea medication and meclizine. May represent vestibulopathy and possible positional vertigo. History of chronic congestive heart failure, compensated. 2. Multiple medical problems include renal insufficiency, endometriosis cancer, status post pacemaker placement for sick sinus syndrome. 3. Generalized weakness and wheelchair bound. RECOMMENDATIONS: 1. Continue with current management initiated by Dr. Wiseman, including steroid, meclizine, and antiemetic medications. 2. Vestibular exercise may alleviate the symptoms. 3. Continue with current medical care. 4. The patient is neurologically stable. M Estephanie CALDERON MD DR: JONATHAN/hetal JOB#: [id number] / [id number]
[2020-04-19] MEDS: ATORVASTATIN CALCIUM 20 MG TABLET PO SCH (20:51)
[2020-04-19 23:10] VITALS: BP 133/74
[2020-04-20 06:12] VITALS: BP 144/73
--- NOTE | 2020-04-20 06:15 | NUR ---
This evening pt expressed her concerns on a couple medications she is taking while at the hospital. Nurse advised pt the dr will be informed of her concerns. pt requested something for hip pain last night. Tylenol was available and given. Pt thought she had oxycodone available due to her endometrial cancer. Pt also expressed concern about solumedrol and lasix. Nurse will pass off pts concerns to dayshift nurse.
[2020-04-20] MEDS: ACETAMINOPHEN 500 MG TABLET PO SCH ×3 (09:02→20:14)
[2020-04-20] MEDS: CHOLECALCIFEROL (VITAMIN D3) 1,000 UNIT TABLET PO SCH (09:02)
[2020-04-20] MEDS: ALLOPURINOL 100 MG TABLET. PO SCH (09:02)
[2020-04-20] MEDS: ASPIRIN CHEWABLE 81 MG TABLET. PO SCH (09:02)
[2020-04-20] MEDS: LOSARTAN 25 MG TABLET. PO SCH (09:02)
[2020-04-20] MEDS: MECLIZINE 12.5 MG TABLET. PO SCH ×3 (09:03→20:14)
[2020-04-20] MEDS: diazePAM 2 MG TABLET. PO SCH ×3 (09:03→20:14)
[2020-04-20] MEDS: POTASSIUM CHLORIDE 20 MEQ TABLET.ER. PO SCH (09:03)
[2020-04-20] MEDS: FUROSEMIDE 40 MG TABLET PO SCH (09:03)
[2020-04-20] MEDS: CARVEDILOL 3.125 MG TABLET PO SCH ×2 (09:03→17:07)
[2020-04-20] MEDS: methylPREDNISolone SOD SUCC PF 125 MG/2 ML VIAL. IV SCH ×2 (09:04→20:15)
[2020-04-20] MEDS: POLYETHYLENE GLYCOL 3350 17 GM PACKET. PO SCH (09:04)
[2020-04-20 10:57] VITALS: BP 133/70
--- NOTE | 2020-04-20 11:45 | PN ---
DATE: 04/20/2020 ATTENDING PHYSICIAN: Dr. Fu. SUBJECTIVE: Better. Dizziness is almost completely resolved. She is still a little bit weak in transferring. OBJECTIVE FINDINGS: VITAL SIGNS: Blood pressure today is 133/70, pulse 72 and regular, oxygen saturation 95% on room air, temperature 97.9 degrees Fahrenheit. HEENT: Head is without trauma. Pupils are reactive. No nystagmus. NECK: Supple. LUNGS: Clear. CARDIOVASCULAR: Showed regular heart tones. ABDOMEN: Minimal guarding on palpation. EXTREMITIES: Show trace edema. NEUROLOGIC: The patient remains at bed rest, but her speech is fluent and her vertigo symptoms have improved. ASSESSMENT: 1. Acute positional vertigo, improved. 2. Acute on chronic congestive heart failure, compensated. 3. History of endometrial cancer. 4. Previous colon resection. 5. Morbid obesity. 6. Sick sinus syndrome. 7. Chronic kidney disease. 8. Generalized debilitation. PLAN: 1. I have ordered Lasix as needed. 2. Continue meclizine and diazepam another day. 3. Diet as tolerated. 4. Percocet p.r.n. pain. 5. Schedule discharge planning for tomorrow. ELISE FU MD DR: MARVIN/hetal JOB#: [id number] / [id number]
[2020-04-20] MEDS ORDERED: FUROSEMIDE 40 MG TABLET PO ONE (12:00)
[2020-04-20] MEDS: oxyCODONE/APAP 7.5/325 1 TAB TABLET PO PRN (12:00)
[2020-04-20] MEDS: LIDOCAINE (700MG/PATCH) PATCH. TD SCH (12:01)
[2020-04-20 15:13] VITALS: BP 142/70
[2020-04-20] MEDS: ATORVASTATIN CALCIUM 20 MG TABLET PO SCH (20:14)
[2020-04-20 20:31] VITALS: BP 137/72
[2020-04-20] MEDS ORDERED: PATCH REMOVAL. MC SCH (21:00)
[2020-04-20 22:46] VITALS: BP 132/75
[2020-04-21] MEDS: oxyCODONE/APAP 7.5/325 1 TAB TABLET PO PRN ×2 (04:40→11:06)
--- NOTE | 2020-04-21 05:40 | NUR ---
PRN pain med was given at 0440 for abdominal pain. Pt now appears more comfortable and reports pain lessened.
[2020-04-21 05:50] VITALS: BP 154/75
[2020-04-21] MEDS: LOSARTAN 25 MG TABLET. PO SCH (08:36)
[2020-04-21 08:37] VITALS: BP 154/75
[2020-04-21] MEDS: CARVEDILOL 3.125 MG TABLET PO SCH (08:37)
[2020-04-21] MEDS: ALLOPURINOL 100 MG TABLET. PO SCH (08:37)
[2020-04-21] MEDS: diazePAM 2 MG TABLET. PO SCH (08:37)
[2020-04-21] MEDS: ACETAMINOPHEN 500 MG TABLET PO SCH (08:37)
[2020-04-21] MEDS: POTASSIUM CHLORIDE 20 MEQ TABLET.ER. PO SCH (08:37)
[2020-04-21] MEDS: CHOLECALCIFEROL (VITAMIN D3) 1,000 UNIT TABLET PO SCH (08:37)
[2020-04-21] MEDS: ASPIRIN CHEWABLE 81 MG TABLET. PO SCH (08:38)
[2020-04-21] MEDS: methylPREDNISolone SOD SUCC PF 125 MG/2 ML VIAL. IV SCH (08:38)
[2020-04-21] MEDS: LIDOCAINE (700MG/PATCH) PATCH. TD SCH (08:38)
[2020-04-21] MEDS: POLYETHYLENE GLYCOL 3350 17 GM PACKET. PO SCH (08:38)
[2020-04-21] MEDS: MECLIZINE 12.5 MG TABLET. PO SCH (08:38)
--- NOTE | 2020-04-21 08:59 | PN ---
DATE: 04/20/2020 SUBJECTIVE: The patient denies any new medical or neurological complaints. She continues to have generalized weakness. OBJECTIVE: GENERAL: Well-developed, well-nourished female, not in acute distress. VITAL SIGNS: Blood pressure 133/70, respiratory rate 20, pulse is 72, oxygen saturation is 95% on room air, and temperature is 97.9. HEENT: Normocephalic, atraumatic, otherwise unremarkable. NECK: Supple. Negative for carotid bruit, lymphadenopathy, JVD or thyromegaly. LUNGS: Clear to A and P. CARDIOVASCULAR: Regular rate and rhythm, normal S1, S2. ABDOMEN: Soft. Bowel sounds positive. EXTREMITIES: With trace edema bilaterally. NEUROLOGICAL EXAM: Normal mental status and intact cranial nerves. There is no nystagmus. There are no facial motor or sensory deficits. Hearing is intact bilaterally. The palate is elevated symmetrically. Sternocleidomastoid muscles are powerful bilaterally. The patient shrugs her shoulders symmetrically, protrudes her tongue in the midline without fasciculation or atrophy. MOTOR: No focal muscle bulk wasting. The tone is normal. The strength is 4/5 throughout. Sensory examination revealed normal pinprick, light touch, vibratory and position senses. Deep tendon reflexes were symmetric and active and hypoactive with absent Achilles responses. Gait: The patient uses a walker for transfer. IMPRESSION: 1. Acute vertigo -- improved. The patient denies nausea or vomiting. Meclizine has been helpful. 2. Multiple medical problems include intermittent lower abdominal pain and she related that to endometriosis cancer, status post pacemaker placement for sick sinus syndrome. 3. Generalized weakness and morbid obesity. RECOMMENDATIONS: Continue with current management initiated by Dr. Wiseman. The patient may benefit from vestibular exercise while she is in bed. The patient is neurologically stable. M Estephanie CALDERON MD DR: JONATHAN/hetal JOB#: [id number] / [id number]
[2020-04-21] MEDS ORDERED: FUROSEMIDE 40 MG TABLET PO SCH (09:00)
--- NOTE | 2020-04-21 11:57 | DS ---
DATE OF DISCHARGE: 04/21/2020 ATTENDING PHYSICIAN: Dr. Fu. FINAL DISCHARGE DIAGNOSES: 1. Acute vertigo. 2. Acute on chronic congestive heart failure, compensated. 3. History of endometrial cancer. 4. Previous colon resection. 5. Morbid obesity. 6. Sick sinus syndrome. 7. Chronic kidney disease. 8. Generalized debilitation. HISTORY AND PHYSICAL: This is a pleasant 70-year-old female who is well known to us. She was admitted with symptoms of acute dizziness and vertigo. PHYSICAL EXAMINATION: Please see the dictated note. PERTINENT LABORATORY AND X-RAY STUDIES: The obligatory CT of the head done on admission showed no evidence of acute stroke, no intracranial hemorrhage identified. Her hemoglobin is maintained at 11.4 g/dL with a white count of 4000. Chemistry showed stable creatinine 1.5 mg/dL, potassium 4.5 mEq. Cardiac enzymes negative for myocardial necrosis. BNP was 4011. COURSE IN THE HOSPITAL: The patient was admitted with vertigo. She was placed on bed rest. Home meds were continued. I ordered scheduled meclizine and low dose diazepam along with 1 burst of steroids. She did well. Symptoms improved. By the third hospital day, her dizziness had resolved. She was able to transfer and ambulate with minimal assistance. Therefore, on the third hospital day, she was discharged home. There are no changes on her medications. I did recommend Claritin-D 10/240 one daily until the first vasquez, which should be about a month. She should continue her albuterol, allopurinol, Lipitor, Coreg, cholecalciferol, fluticasone, Lasix, losartan, oxycodone, MiraLax, and potassium dose is unchanged. The patient was then discharged from our hospital in stable condition with explicit instructions and followup care. ELISE FU MD DR: MARVIN/hetal JOB#: [id number] / [id number] LUIS Richter MD
--- NOTE | 2020-04-21 22:12 | PN ---
DATE: 04/21/2020 REFERRING PHYSICIAN: Dr. Wiseman. SUBJECTIVE: The patient denies any new medical or neurological complaints. She has not had any vertigo for the last 48 hours. She could move to the commode with help; however, she is wheelchair bound. She denies headaches, chest pain, shortness of breath or palpitation. OBJECTIVE: GENERAL: Obese female, not in acute distress. VITAL SIGNS: Blood pressure 154/75, respiratory rate 18, pulse is 70 and regular, oxygen saturation 93% on room air. HEENT: Normocephalic, atraumatic, otherwise unremarkable. NECK: Supple. Negative for carotid bruit, lymphadenopathy or thyromegaly. LUNGS: Clear to A and P. CARDIOVASCULAR: Regular rate and rhythm, normal S1, S2. There is no S3, S4, or murmurs. ABDOMEN: Soft. Bowel sounds positive. EXTREMITIES: With trace edema. NEUROLOGIC: Normal mental status and intact cranial nerves. There is no nystagmus. No focal motor or sensory deficit. The strength is 4/5 throughout. Sensory examination revealed diminished pinprick and light touch senses and patchy distributions in both lower extremities. Deep tendon reflexes were symmetric and hypoactive with absent Achilles responses. Gait not tested. IMPRESSION: 1. Acute vertigo -- resolved. 2. Multiple medical problems include morbid obesity, chronic low back pain, endometriosis cancer, status post pacemaker placement and generalized weakness. RECOMMENDATIONS: Continue with current management initiated by Dr. Wiseman. The patient is neurologically stable. M Estephanie CALDERON MD DR: JONATHAN/hetal JOB#: [id number] / [id number]
== END 2020-04-21 13:38 | disposition home or self-care (01) ==
LOC: ER 07:14 → INTOOBSV 08:40 → 1 SOUTH 08:40
PROVIDERS: ADMIT Hospitalist; ATTEND Hospitalist
DX: H81.10 Benign paroxysmal vertigo, unspecified ear (principal); I13.0 Hypertensive heart and chronic kidney disease with heart failure and stage 1 through stage 4 chronic kidney disease, or unspecified chronic kidney disease; I50.23 Acute on chronic systolic (congestive) heart failure; N18.30 Chronic kidney disease, stage 3 unspecified; I49.5 Sick sinus syndrome; R53.81 Other malaise; E66.01 Morbid (severe) obesity due to excess calories; Z85.42 Personal history of malignant neoplasm of other parts of uterus; Z95.0 Presence of cardiac pacemaker; Z98.890 Other specified postprocedural states; Z68.42 Body mass index [BMI] 45.0-49.9, adult
CPT/HCPCS: 36415; 70450; 80053; 81001; 83735; 83880; 84484; 85025; 85610; 85730; 87086; 93005; 96374; 96375; 96376; 99285; G0378; J2405; J2930; J8597; G0379

== ENCOUNTER 2020-06-07 17:56 | Emergency (ER) | payer MEDICARE, OTHER ==
[~2020-06-07] VITALS: Ht 157.5 cm; Wt 117.2 kg
[2020-06-07 18:00] VITALS: BP 166/104
--- NOTE | 2020-06-07 18:13 | PHYS DOC ---
Past History Past Medical History: Cancer, CHF, Hypertension, Other Past Surgical History: Pacemaker, Other Additional Past Surgical Histo: colon resect. pacemaker insertion Smoking: Non-smoker Alcohol Use: None Drug Use: None Adult General Chief Complaint Chief Complaint: CONSTIPATION HPI HPI Patient is a 70-year-old female who presents via EMS for abdominal pain. Patient reports diffuse abdominal pain for which she is concerned for constipation. Patient had colostomy placed approximately 10 years ago for rectal/ fistula and reports having to change her ostomy bag roughly twice daily. She reports decreased stooling for past 3 weeks, reports changing bag once or every other day which is unusual for her. Patient reports her p.o. fluid intake has been steady, has history of CHF and has been compliant with daily fluid intake. She admits she does not consume fiber on a daily basis, does not take any [id number] fiber supplements or other stool softeners etc. Patient also cites history of x3 abdominal hernias, states these are all k nown and have never been strangulated, she has never had surgical intervention on any of these in the past. She presents due to ongoing abdominal pain and requesting to " get it fixed tonight" Review of Systems Review of Systems Fourteen body systems of review of systems have been reviewed. See HPI for pertinent positives and negative responses, other fields all other systems are negative, non-pertinent or non-contributory Allergies Allergies Allergies Coded Allergies Type Severity Reaction Last Updated Verified codeine Allergy Intermediate 01/31/20 Yes nitrofurantoin Allergy Intermediate 04/04/20 Yes prednisone Adverse Reaction Intermediate retains fluid 04/19/20 Yes Physical Exam Physical Exam Constitutional: Well developed, well nourished, obese, no acute distress, non- toxic appearance. HENT: Normocephalic, atraumatic, bilateral external ears normal, oropharynx moist, no oral exudates, nose normal. Eyes: PERRLA, EOMI, conjunctiva normal, no discharge. Neck: Normal range of motion, no tenderness, supple, no stridor. Cardiovascular: Heart rate regular, sinus rhythm, no murmurs rubs or gallops Lungs & Thorax: Bilateral breath sounds clear to auscultation, diminished bilaterally due to body habitus Abdomen: Bowel sounds normal, soft, no tenderness, no pulsatile masses. Nonsurgical abdomen, no peritoneal signs. Well-appearing ostomy present with mild amount of stool present in bag with normal consistency and color, palpable midline hernias present which are reducible and nontender to palpation. Skin: Warm, dry, no erythema, no rash. Back: No tenderness, no CVA tenderness. Extremities: No tenderness, no cyanosis, no clubbing, ROM intact, no edema. Neurologic: Alert and oriented X 3, grossly normal motor & sensory function, no focal deficits noted. Psychologic: Affect normal, judgement normal, mood normal. Current Patient Data Vital Signs Vital Signs Date Time Temp Pulse Resp B/P (MAP) Pulse Ox O2 Delivery O2 Flow Rate FiO2 06/07/20 18:00 98.6 72 20 166/104 (124) 98 Room Air EKG EKG [] Radiology/Procedures Radiology/Procedures PROCEDURE: CT ABDOMEN PELVIS WO CONTRAST Exam: CT of abdomen and pelvis without contrast INDICATION: Diffuse abdominal pain, colostomy TECHNIQUE: Sequential axial images through the abdomen and pelvis obtained without IV contrast. Sagittal and coronal reformatted images were reconstructed from the axial data and reviewed. Comparisons: 06/14/2019 FINDINGS: Heart is mildly enlarged. Pacer with leads terminating the right heart. No pericardial effusion. Patchy airspace disease at the lung bases bilaterally. Evaluation of solid organs limited secondary to noncontrast technique. Liver, spleen, pancreas, gallbladder and adrenals are unremarkable. No perinephric inflammation or hydronephrosis. No renal or ureteral calculi are identified. Bladder is partially distended and not well evaluated. Uterus is nonenlarged. IUD noted within the uterus. There is a left lower quadrant colostomy with a parastomal hernia containing a small segment of small bowel. Additionally there is a periumbilical hernia which contains a short segments of large and small bowel. No evidence for obstruction. Remainder of the large and small bowel are unremarkable. No free intra-abdominal air or fluid. No obstruction. Abdominal aorta has a normal course and caliber. No enlarged intra-abdominal lymph nodes are identified. No suspicious osseous lesions or acute fractures. IMPRESSION: 1. Multiple quadrant colostomy with a small parastomal hernia. 2. Periumbilical hernia containing short segments of the large and small bowel. No evidence for obstruction. 3. Patchy bibasilar airspace disease at the lung bases, may be infectious or inflammatory in etiology. Exposure: One or more of the following in the visualized dose reduction techniques were utilized for this examination: 1. Automated exposure control 2. Adjustment of the MA and/or KV according to patient size 3. Use of iterative of reconstructive technique Electronically signed by: Ryan Mcleod MD (06/07/2020 6:47 PM) [facility] DICTATED AND SIGNED BY: RYAN MCLEOD MD DATE: 06/07/201846 Heart Score HEART Score for Chest Pain: HEART Score for Chest Pain Response (Comments) Value History Slighlty/Non-Suspicious 0 Age > 65 2 Risk Factors >3 Risk Factors or Hx CAD 2 Total 4 Risk Factors: Risk Factors: DM, Current or recent (<one month) smoker, HTN, HLP, family history of CAD, obesity. Risk Scores: Risk Factors: DM, Current or recent (<one month) smoker, HTN, HLP, family history of CAD, obesity. Course & Med Decision Making Course & Med Decision Making Pertinent Labs and Imaging studies reviewed. (See chart for details) Discussed most likely diagnosis of constipation. I also disclosed that patient had elevated creatinine. She has history of chronic kidney disease, based on prior creatinine draw April 19, 2020, she has elevated creatinine level without official diagnosis of ANTONIO. She is dehydrated I discussed role of discharge home with supportive care advised. I advised cuca ent to temporarily increase fluid intake given dehydrated state, I advised her to increase fiber to approximately 10 g daily via diet, I also advised patient to utilize Colace daily I did disclose this might be an acute presentation more concerning pathology; however, based on comprehensive ER work-up today I do not feel there is any emergent and/or surgical findings requiring further work-up and/or inpatient at this time admission Patient has good access to primary care physician, [facility] which I feel is appropriate Strict return precautions were discussed with good understanding by patient, all questions and concerns addressed prior to ER departure in stable condition Dragon Disclaimer Dragon Disclaimer This electronic medical record was generated, in whole or in part, using a voice recognition dictation system. Departure Departure: Impression: Primary Impression: Constipation Additional Impression: Nonspecific abdominal pain Disposition: 01 DC HOME SELF CARE/HOMELESS Condition: STABLE Referrals: LUIS ZHOU MD (PCP) Patient Instructions: Constipation, Adult, Diet - How To Increase Fiber In The Meal Plan For Diabetes Additional Instructions: You have been evaluated in the Emergency Department today for abdominal pain. Your evaluation was not suggestive of any emergent condition requiring medical intervention at this time. However, some abdominal problems make take more time to appear. Therefore, it is important for you to watch for any new symptoms or worsening of your current condition. As discussed prior to ER departure, please increase your home fiber consumption, please aim to consume at least 10 g of fiber daily. Please see the attached resource list that discussed how to increase fiber in your diet. You can consider implementing Colace into your daily regimen, I would recommend starting with 100 mg daily until you see your primary care physician to discuss potential of increasing frequency. I would also advise you to follow-up in outpatient setting with GI physician as previously discussed with your primary care provider Return to the Emergency Department if you experience worsening pain, persistent fevers greater than 100.4, recurrent vomiting, blood in vomit, blood in stool, dark tarry stool, chest pain, difficulty breathing, or any other concerning symptoms. Scripts Docusate Sodium (COLACE) 100 Mg Capsule 100 MG PO DAILY for CONSTIPATION for 30 Days, #30 CAP Prov: DENA DE LA GARZA DO 06/07/20 Problem Qualifiers DENA DE LA GARZA DO Jun 07, 2020 18:13
--- NOTE | 2020-06-07 18:50 | RAD ---
Exam: CT of abdomen and pelvis without contrast INDICATION: Diffuse abdominal pain, colostomy TECHNIQUE: Sequential axial images through the abdomen and pelvis obtained without IV contrast. Sagittal and coronal reformatted images were reconstructed from the axial data and reviewed. Comparisons: 06/14/2019 FINDINGS: Heart is mildly enlarged. Pacer with leads terminating the right heart. No pericardial effusion. Patchy airspace disease at the lung bases bilaterally. Evaluation of solid organs limited secondary to noncontrast technique. Liver, spleen, pancreas, gallbladder and adrenals are unremarkable. No perinephric inflammation or hydronephrosis. No renal or ureteral calculi are identified. Bladder is partially distended and not well evaluated. Uterus is nonenlarged. IUD noted within the uterus. There is a left lower quadrant colostomy with a parastomal hernia containing a small segment of small bowel. Additionally there is a periumbilical hernia which contains a short segments of large and small bowel. No evidence for obstruction. Remainder of the large and small bowel are unremarkable. No free intra-abdominal air or fluid. No obstruction. Abdominal aorta has a normal course and caliber. No enlarged intra-abdominal lymph nodes are identified. No suspicious osseous lesions or acute fractures. IMPRESSION: 1. Multiple quadrant colostomy with a small parastomal hernia. 2. Periumbilical hernia containing short segments of the large and small bowel. No evidence for obstruction. 3. Patchy bibasilar airspace disease at the lung bases, may be infectious or inflammatory in etiology. Exposure: One or more of the following in the visualized dose reduction techniques were utilized for this examination: 1. Automated exposure control 2. Adjustment of the MA and/or KV according to patient size 3. Use of iterative of reconstructive technique Electronically signed by: Ryan Wolf MD (06/07/2020 6:47 PM) [facility]
[2020-06-07 18:55] LABS: CALCIUM 9.5 mg/dL (8.5-10.1); CREATININE 2.1 mg/dL (0.6-1.0); GFR 23.2; POTASSIUM 4.2 mmol/L (3.5-5.1)
[2020-06-07 19:03] LABS: ALBUMIN 3.2 g/dL (3.4-5.0); ALBUMIN/GLOBULIN RATIO 0.7 (1.0-1.7); TOTAL BILIRUBIN 0.4 mg/dL (0.2-1.0); TOTAL PROTEIN 7.6 g/dL (6.4-8.2)
[2020-06-07] MEDS ORDERED: DOCU-109 PO (19:25)
[2020-06-07] MEDS ORDERED: DOCUSATE SODIUM 100 MG CAPSULE PO ONE ×2 (19:28→19:45)
== END 2020-06-07 19:36 | disposition home or self-care (01) ==
LOC: ER 17:56
DX: K59.00 Constipation, unspecified (principal); R10.84 Generalized abdominal pain; E86.0 Dehydration; I11.0 Hypertensive heart disease with heart failure; I50.9 Heart failure, unspecified; Z85.9 Personal history of malignant neoplasm, unspecified; Z95.0 Presence of cardiac pacemaker; Z98.890 Other specified postprocedural states; Z88.5 Allergy status to narcotic agent; Z88.8 Allergy status to other drugs, medicaments and biological substances
CPT/HCPCS: 36415; 74176; 80053; 99284

== ENCOUNTER → 2020-11-07 | Outpatient (CLI) | payer MEDICARE, OTHER ==
[~2020-11-07] MED LIST changes: +DOCU-109 PO; +IOHEXOL 240 MG/ML 50ML VIAL. ONE
[2020-11-07 11:19] LABS: CALCIUM 9.1 mg/dL (8.5-10.1); CREATININE 1.9 mg/dL (0.6-1.0); GFR 26.1; POTASSIUM 4.5 mmol/L (3.5-5.1)
--- NOTE | 2020-11-07 12:38 | RAD ---
EXAM: Abdomen and pelvis CT without intravenous contrast. HISTORY: Endometrial cancer. Pain. TECHNIQUE: Computed tomographic images of the abdomen and pelvis were obtained without contrast. Mult iplanar reformatting was performed. *One or more of the following individualized dose reduction techniques were utilized for this examina tion: 1. Automated exposure control. 2. Adjustment of the mA and/or kV according to patient size. 3. Use of iterative reconstruction technique. COMPARISON: 06/07/2020. FINDINGS: Evaluation of the lower thorax demonstrates suspected left greater than right lower lobe in terstitial infiltrate superimposed on emphysema and chronic interstitial lung disease. There is no pl eural effusion. There is cardiomegaly. There is a cardiac pacemaker partially included on the field-o f-view. There is a 1.8 cm hypodense lesion within the hepatic dome, difficult to assess given motion artifact in this location. This appears to be cystic on the prior exam. There is a similar-appearing suspecte d 1.6 cm cyst within the inferior right hepatic lobe. The gallbladder is distended and contains suspected stones. The pancreas, spleen and adrenal glands a re unremarkable. There is bilateral renal atrophy and there are small suspected simple renal cysts, d ifficult to assess on this noncontrast exam. There is a left ventral abdominal wall colostomy with parastomal hernia containing a loop of air and contrast-filled small bowel. There is also a ventral abdominal wall hernia superior to the umbilicus containing a segment of colon and small bowel. The hernia sacs are similar to slightly increased comp ared to the prior study. There is no convincing mechanical bowel obstruction related to these hernias . There is no appendicitis. There is no abnormal bowel wall thickening. There is a heterogeneous mass o r complex fluid collection extending from the posterior lower uterine segment along the cervix and va shruti. This measures approximately 8.6 cm and craniocaudal dimension. There is an IUD within the endom etrial cavity. There is a stable 2.8 cm fluid density structure adjacent to the left superior uterine fundus, possibly ovarian in etiology. There is urinary bladder wall thickening and surrounding fatty stranding. There is a small fluid collection adjacent to a rectal anastomosis to the right of midlin e measuring 2.8 cm. There is a tiny incidental fat-containing right inguinal hernia. The aorta is normal in caliber. There are few nonspecific mesenteric lymph nodes which are not signal ly changed. No convincing soft tissue implant is seen. There is chronic deformity of the left hip. Th ere is lumbar scoliosis and multilevel degenerative change involving the visualized spine. There is b one demineralization. IMPRESSION: 1. Heterogeneous mass or complex fluid collection extending along the posterior lower uterine segment and cervix and vagina measuring 8.6 cm in maximum dimension, increased compared to the prior exam. C orrelate with pelvic exam findings. There is a stable 2.8 cm small fluid density structure along the left uterine fundus which may be an ovarian cyst and there is a stable 2.8 cm fluid collection along the right aspect of the rectal pouch. 2. Urinary bladder wall thickening and surrounding stranding possibly due to cystitis or changes due to interval radiation therapy. 3. IUD within the endometrial cavity. 4. Left ventral abdominal wall colostomy with associated hernia containing a loop of small bowel, sta ble to slightly increased compared to the prior exam. There is also a stable to slightly increased ve ntral abdominal wall hernia containing colon and small bowel. A mechanical obstruction is seen 5. Stable suspected hepatic cysts. 6. Left greater than right lower lobe interstitial infiltrate superimposed on chronic interstitial felice ng disease. 7. Distended gallbladder containing stones. This can be better assessed with a gallbladder sonogram. 8. Suspected simple renal cysts. Follow up is not routinely performed for simple cysts. 9. Chronic deformity of the left hip. 10. Stable nonspecific mesenteric lymph nodes. No convincing metastatic lymphadenopathy is seen. Electronically signed by: Kenyatta Gann MD (11/07/2020 12:36 PM) [id number]
== END ==
LOC: CT 10:42
PROVIDERS: ATTEND Specialist
DX: C54.1 Malignant neoplasm of endometrium (principal); K82.8 Other specified diseases of gallbladder; K43.9 Ventral hernia without obstruction or gangrene; K40.90 Unilateral inguinal hernia, without obstruction or gangrene, not specified as recurrent; M47.816 Spondylosis without myelopathy or radiculopathy, lumbar region
CPT/HCPCS: 36415; 74176; 80048

== ENCOUNTER 2020-11-13 07:01 | Emergency (ER) | payer MEDICARE, OTHER ==
[~2020-11-13] VITALS: Ht 157.5 cm; Wt 117.2 kg
[~2020-11-13 07:01] MED LIST changes: -IOHEXOL 240 MG/ML 50ML VIAL. ONE
--- NOTE | 2020-11-13 07:12 | PHYS DOC ---
Past History Past Medical History: Cancer, CHF, Hypertension, Other Past Surgical History: Pacemaker, Other Additional Past Surgical Histo: colon resect. pacemaker insertion Smoking: Non-smoker Alcohol Use: None Drug Use: None Adult General Chief Complaint Chief Complaint: VAGINAL BLEEDING HPI HPI Patient is a 70-year-old female presenting for vaginal bleeding. She reports she awoke this morning and felt like her legs were wet and turned on the light to visualize what happened and noticed that she was sitting in some blood. Went to use her bedside commode and reports blood pouring out of her vaginal canal. States she lost approximately 8 ounces of bright red blood with some clots mixed in. Currently complains of lightheaded/dizziness, lower abdominal pain, and some shortness of breath. Has history of bleeding like this, states she has significant past medical history for heart failure reduced ejection fraction and uterine cancer that she has been unable to surgically remove due to being a poor surgical candidate. As such, she has been well followed in outpatient setting by primary care physician and [facility] specialist at [facility] for her condition. She presented to our ER via EMS as she has history of complicated vaginal bleeding within past 6 months that required her to be life flighted to [facility] for emergent surgical fixation, she reports she thinks she had a ligation procedure of some sort performed in November or December at . Reports since the procedure she has been feeling well and has had minimal vaginal spotting. Reports yesterday she felt fine. Reports she had an abdominal CT done approximately a week ago by primary care physician but has not had the results of that CT yet. Does report that she has gotten follow-up from her [facility] in the past month and reports everything was normal at that time and her provider ordered the CT scan because it had been a while since her last CT scan. 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 She denies chest pain, nausea, vomiting, diarrhea, constipation, bloody stools, and problems urinating. Review of Systems Review of Systems Fourteen body systems of review of systems have been reviewed. See HPI for pertinent positives and negative responses, other fields all other systems are negative, non-pertinent or non-contributory Allergies Allergies Allergies Coded Allergies Type Severity Reaction Last Updated Verified codeine Allergy Intermediate 01/31/20 Yes nitrofurantoin Allergy Intermediate 04/04/20 Yes prednisone Adverse Reaction Intermediate retains fluid 04/19/20 Yes Physical Exam Physical Exam Constitutional: Well developed, well nourished, no acute distress, non-toxic appearance. Appears uncomfortable on exam HENT: Normocephalic, atraumatic, bilateral external ears normal, oropharynx moist, no oral exudates, nose normal. Conjunctive are pale. Eyes: PERRLA, EOMI, conjunctiva normal, no discharge. Neck: Normal range of motion, no tenderness, supple, no stridor. Cardiovascular: Heart rate regular, sinus rhythm, patient has bilateral and symmetric radial pulses at 2 out of 4, capillary refill of less than 2 seconds bilaterally in the upper and lower extremity. Pacemaker present and left upper chest Lungs & Thorax: No overt respiratory distress but patient does demonstrate increased work of breathing, poor air excursion bilaterally with rales present in bilateral lobes, rhonchi and crackles present in right lower lobe Abdomen: Bowel sounds normal, soft, no masses, no pulsatile masses. Nonsurgical abdomen, no peritoneal signs tenderness to palpation in the lower abdominal quadrants/suprapubic area, tenderness to palpation in the right upper quadrant. Well-appearing colostomy on left lower quadrant area : External genitalia without trauma but there is scant bleeding that is bright red in nature present from vaginal vault with several clots present in patient's padded underwear, speculum was inserted, no significant findings within vaginal wall. Joint decision to defer further advancement of speculum to identify cervix given concerning findings on recent CT abdomen pelvis and history of complicated vaginal bleeding requiring ligation. Vagina was subsequently packed with gauze and padded underwear replaced Skin: Warm, dry, no erythema, no rash. Back: No tenderness, no CVA tenderness. Extremities: No tenderness, no cyanosis, no clubbing, ROM intact, trace pedal edema present bilaterally Neurologic: Alert and oriented X 3, grossly normal motor & sensory function, no focal deficits noted. Psychologic: Affect normal, judgement normal, depressed mood Current Patient Data Vital Signs Vital Signs Date Time Temp Pulse Resp B/P (MAP) Pulse Ox O2 Delivery O2 Flow Rate FiO2 11/13/20 07:07 98.3 86 20 133/63 (86) 97 Room Air Vital Signs Date Time Temp Pulse Resp B/P (MAP) Pulse Ox O2 Delivery O2 Flow Rate FiO2 11/13/20 07:07 98.3 86 20 133/63 (86) 97 Room Air Lab Results Laboratory Tests Test 11/13/20 07:06 11/13/20 07:35 11/13/20 07:47 11/13/20 10:35 Prothrombin Time 11.8 SEC Prothromb Time International Ratio 1.1 Activated Partial Thromboplast Time 26 SEC Sodium Level 134 mmol/L Potassium Level 4.9 mmol/L Chloride Level 101 mmol/L Carbon Dioxide Level 21 mmol/L Anion Gap 12 Blood Urea Nitrogen 25 mg/dL Creatinine 2.0 mg/dL Estimated GFR (Cockcroft-Gault) 24.6 BUN/Creatinine Ratio 13 Glucose Level 118 mg/dL Calcium Level 9.2 mg/dL Total Bilirubin 0.7 mg/dL Aspartate Amino Transf (AST/SGOT) 30 U/L Alanine Aminotransferase (ALT/SGPT) 10 U/L Alkaline Phosphatase 133 U/L Troponin I Quantitative 0.038 ng/mL WL-Gml-H-Type Natriuretic Peptide 25065 pg/mL Total Protein 7.5 g/dL Albumin 2.0 g/dL Albumin/Globulin Ratio 0.4 White Blood Count 12.4 x10^3/uL 10.6 x10^3/uL Red Blood Count 3.13 x10^6/uL 2.77 x10^6/uL Hemoglobin 8.7 g/dL 7.7 g/dL Hematocrit 27.5 % 24.3 % Mean Corpuscular Volume 88 fL 88 fL Mean Corpuscular Hemoglobin 28 pg 28 pg Mean Corpuscular Hemoglobin Concent 32 g/dL 32 g/dL Red Cell Distribution Width 17.3 % 17.1 % Platelet Count 445 x10^3/uL 348 x10^3/uL Neutrophils (%) (Auto) 88 % Lymphocytes (%) (Auto) 5 % Monocytes (%) (Auto) 7 % Eosinophils (%) (Auto) 0 % Basophils (%) (Auto) 0 % Neutrophils # (Auto) 10.8 x10^3uL Lymphocytes # (Auto) 0.6 x10^3/uL Monocytes # (Auto) 0.9 x10^3/uL Eosinophils # (Auto) 0.0 x10^3/uL Basophils # (Auto) 0.0 x10^3/uL Lactic Acid Level 2.3 mmol/L 1.2 mmol/L Current Medications Medications (Trade) Dose Ordered Sig/Bere Route PRN Reason Start Time Stop Time Status Last Admin Dose Admin Fentanyl Citrate (Fentanyl 2ml Vial) 50 mcg 1X ONCE IVP 11/13/20 07:45 11/13/20 07:49 DC 11/13/20 08:39 Sodium Chloride 500 ml @ 0 mls/hr 1X ONCE IV 11/13/20 07:45 11/13/20 07:49 DC 11/13/20 08:40 Doxycycline Hyclate 100 mg/ Dextrose 100 ml @ 50 mls/hr 1X ONCE IV 11/13/20 08:45 11/13/20 10:44 DC 11/13/20 09:26 Cefazolin Sodium 2 gm/Dextrose 50 ml @ 100 mls/hr 1X ONCE IV 11/13/20 08:45 11/13/20 09:14 DC 11/13/20 08:58 Cefazolin Sodium (Ancef) 1 gm STK-MED ONCE .ROUTE 11/13/20 08:55 11/13/20 08:55 DC Dextrose 50 ml @ As Directed STK-MED ONCE .ROUTE 11/13/20 08:55 11/13/20 08:55 DC Dextrose 100 ml @ As Directed STK-MED ONCE IV 11/13/20 09:18 11/13/20 09:19 DC Doxycycline Hyclate 100 mg STK-MED ONCE IV 11/13/20 09:18 11/13/20 09:19 DC Fentanyl Citrate (Fentanyl 2ml Vial) 50 mcg 1X ONCE IVP 11/13/20 11:00 11/13/20 11:01 DC 11/13/20 11:04 Acetaminophen (Tylenol) 650 mg PRN 1X PRN PO PRIOR TO TRANSFUSION 11/13/20 11:15 11/14/20 11:14 Diphenhydramine HCl (Benadryl Oral Elixir) 12.5 mg PRN 1X PRN PO PRIOR TO TRANSFUSION 11/13/20 11:15 11/14/20 11:14 EKG EKG EKG ordered and interpreted by myself at 0730 hrs. as sinus rhythm at 90 bpm, prolonged CT at 200, wide QRS at 194 and prolonged QTC at 501, left axis deviation, no acute ischemic findings, no STEMI Radiology/Procedures Radiology/Procedures Exam performed: One view chest. Indication: Reason: shob, vaginal bleeding / Spl. Instructions: / History: Date of Service: 11/13/2020 8:02 AM Comparison: Two-view chest from 04/18/2020. Single AP upright portable view chest findings: Study somewhat limited due to positioning. Patient's chin overlies the lung apices. Cardiomediastinal silhouette is stable. Bipolar pacemaker. There is central vascular congestion prominent interstitial markings are seen in both lungs similar to prior exam likely chronic. There is a parenchymal opacity in the right lung base. Mild blunting of both costophrenic angles likely tiny effu sions. There is no pneumothorax. Impression: New airspace opacity in the right lung base likely infiltrate. Prominent interstitial markings in both lungs some of which may be chronic, however interstitial edema or infiltrates not excluded. Tiny bilateral pleural effusions. Electronically signed by: Sade Hardy MD (11/13/2020 8:28 AM) [id number] ///////////////////////////////////////// This study was performed 11/07/2020 and ordered by outpatient primary care physician EXAM: Abdomen and pelvis CT without intravenous contrast. HISTORY: Endometrial cancer. Pain. TECHNIQUE: Computed tomographic images of the abdomen and pelvis were obtained without contrast. Multiplanar reformatting was performed. *One or more of the following individualized dose reduction techniques were utilized for this examination: 1. Automated exposure control. 2. Adjustment of the mA and/or kV according to patient size. 3. Use of iterative reconstruction technique. COMPARISON: 06/07/2020. FINDINGS: Evaluation of the lower thorax demonstrates suspected left greater than right lower lobe interstitial infiltrate superimposed on emphysema and chronic interstitial lung disease. There is no pleural effusion. There is cardiomegaly. There is a cardiac pacemaker partially included on the [id number]. There is a 1.8 cm hypodense lesion within the hepatic dome, difficult to assess given motion artifact in this location. This appears to be cystic on the prior exam. There is a similar-appearing suspected 1.6 cm cyst within the inferior right hepatic lobe. The gallbladder is distended and contains suspected stones. The pancreas, spleen and adrenal glands are unremarkable. There is bilateral renal atrophy and there are small suspected simple renal cysts, difficult to assess on this noncontrast exam. There is a left ventral abdominal wall colostomy with parastomal hernia containing a loop of air and contrast-filled small bowel. There is also a ventral abdominal wall hernia superior to the umbilicus containing a segment of colon and small bowel. The hernia sacs are similar to slightly increased compared to the prior study. There is no convincing mechanical bowel obstruction related to these hernias. There is no appendicitis. There is no abnormal bowel wall thickening. There is a heterogeneous mass or complex fluid collection extending from the posterior lower uterine segment along the cervix and vagina. This measures approximately 8.6 cm and craniocaudal dimension. There is an IUD within the endometrial cavity. There is a stable 2.8 cm fluid density structure adjacent to the left superior uterine fundus, possibly ovarian in etiology. There is urinary bladder wall thickening and surrounding fatty stranding. There is a small fluid collection adjacent to a rectal anastomosis to the right of midline measuring 2.8 cm. There is a tiny incidental fat-containing right inguinal hernia. The aorta is normal in caliber. There are few nonspecific mesenteric lymph nodes which are not signally changed. No convincing soft tissue implant is seen. There is chronic deformity of the left hip. There is lumbar scoliosis and multilevel degenerative change involving the visualized spine. There is bone demineralization. IMPRESSION: 1. Heterogeneous mass or complex fluid collection extending along the posterior lower uterine segment and cervix and vagina measuring 8.6 cm in maximum dimension, increased compared to the prior exam. Correlate with pelvic exam findings. There is a stable 2.8 cm small fluid density structure along the left uterine fundus which may be an ovarian cyst and there is a stable 2.8 cm fluid collection along the right aspect of the rectal pouch. 2. Urinary bladder wall thickening and surrounding stranding possibly due to cystitis or changes due to interval radiation therapy. 3. IUD within the endometrial cavity. 4. Left ventral abdominal wall colostomy with associated hernia containing a loop of small bowel, stable to slightly increased compared to the prior exam. There is also a stable to slightly increased ventral abdominal wall hernia containing colon and small bowel. A mechanical obstruction is seen 5. Stable suspected hepatic cysts. 6. Left greater than right lower lobe interstitial infiltrate superimposed on chronic interstitial lung disease. 7. Distended gallbladder containing stones. This can be better assessed with a gallbladder sonogram. 8. Suspected simple renal cysts. Follow up is not routinely performed for simple cysts. 9. Chronic deformity of the left hip. 10. Stable nonspecific mesenteric lymph nodes. No convincing metastatic lymphadenopathy is seen. Electronically signed by: Kenyatta Gann MD (11/07/2020 12:36 PM) [id number] Heart Score C/O Chest Pain: No HEART Score for Chest Pain: HEART Score for Chest Pain Response (Comments) Value History Moderately Suspicious 1 ECG Nonspecific Repolarizatio 1 Age > 65 2 Risk Factors >3 Risk Factors or Hx CAD 2 Troponin < Normal Limit 0 Total 6 Risk Factors: Risk Factors: DM, Current or recent (<one month) smoker, HTN, HLP, family history of CAD, obesity. Risk Scores: Risk Factors: DM, Current or recent (<one month) smoker, HTN, HLP, family history of CAD, obesity. Course & Med Decision Making Course & Med Decision Making Hemodynamically stable patient with concerning HPI and high risk patient with numerous comorbidities. Physical examination consistent with nonemergent but present vaginal bleeding ER work-up concerning for potential right lower lobe pneumonia present on recent CT abdomen pelvis study. Patient anemic with unknown baseline, bleeding is mild and nonconcerning for need of immediate transfusion. Patient's vagina packed with gauze. 250 mls IV normal saline fluid administered for hypotension that resolved. IV cefazolin and doxycycline used for CAP coverage to cover strep pneumonia and atypicals in a patient with prolonged QT, lower risk for Pseudomonas, Listeria, aspiration etc. I discussed complicated case with patient and subsequently [facility] and discussed my recommendation for transfer for higher acuity of care. Patient was excepted under the care of Dr. Ovalles, her typical [facility]IST at [facility] for transfer Repeat H&H decreased to 7.7. Plans were made to transfuse but unable to have appropriate blood products in time to administer prior to ER transfer. She is stable for ER transfer via EMS and can receive these if needed after recheck at accepting facility. I updated patient on proposed plan of care that involved hospital transfer via EMS and she was amenable, all questions and concerns addressed prior to ER departure Critical Care Time This patient required critical care. Due to the fact that the patient required a significant amount of one on one physician - patient contact time, ordering and review of studies, arranging urgent treatment with development of a management plan, evaluation of patients response to treatment with frequent reassessments, and discussions with other providers this patient required 50 minutes of critical care time. Critical care time was indicated due to the inherent instability and/or potential for instability in this patient. The critical care time that is allocated to this patient is above and beyond any time spent on any other billable procedures performed on this patient. Dragon Disclaimer Dragon Disclaimer This electronic medical record was generated, in whole or in part, using a voice recognition dictation system. Departure Departure: Impression: Primary Impression: Vaginal bleeding, abnormal Additional Impressions: RLL pneumonia Chronic HFrEF (heart failure with reduced ejection fraction) History of uterine cancer Elevated serum creatinine Disposition: 02 SHORT TERM HOSPITAL Admitting Physician: Other (dr ovalles) Condition: GUARDED Referrals: LUIS ZHOU MD (PCP) Problem Qualifiers DENA DE LA GARZA DO Nov 13, 2020 07:12
[2020-11-13] MEDS ORDERED: IV NORMAL SALINE 500ML 500 ML IV ONE (07:45)
[2020-11-13 07:47] LABS: BASO % 0 % (0-3); EOS % 0 % (0-3); HEMATOCRIT 27.5 % (36.0-47.0); HEMOGLOBIN 8.7 g/dL (12.0-15.5); LYMPH # 0.6 x10^3/uL (1.0-4.8); LYMPH % 5 % (24-48); MEAN CORPUSCULAR HEMOGLOBIN 28 pg (25-35); MEAN CORPUSCULAR HGB CONC 32 g/dL (31-37); MEAN CORPUSCULAR VOLUME 88 fL (79-100); MONO # 0.9 x10^3/uL (0.0-1.1); MONO % 7 % (0-9); NEUT # 10.8 x10^3uL (1.8-7.7); NEUT % 88 % (31-73); PLATELET COUNT 445 x10^3/uL (140-400); RED BLOOD COUNT 3.13 x10^6/uL (3.50-5.40); RED CELL DISTRIBUTION WIDTH 17.3 % (11.5-14.5); WHITE BLOOD COUNT 12.4 x10^3/uL (4.0-11.0)
[2020-11-13 07:47] LABS: CALCIUM 9.2 mg/dL (8.5-10.1); GFR 24.6; POTASSIUM 4.9 mmol/L (3.5-5.1)
[2020-11-13 07:50] LABS: ALBUMIN/GLOBULIN RATIO 0.4 (1.0-1.7); TOTAL BILIRUBIN 0.7 mg/dL (0.2-1.0); TOTAL PROTEIN 7.5 g/dL (6.4-8.2)
--- NOTE | 2020-11-13 08:31 | RAD ---
Exam performed: One view chest. Indication: Reason: shob, vaginal bleeding / Spl. Instructions: / History: Date of Service: 11/13/2020 8:02 AM Comparison: Two-view chest from 04/18/2020. Single AP upright portable view chest findings: Study somewhat limited due to positioning. Patient's chin overlies the lung apices. Cardiomediastinal silhouette is stable. Bipolar pacemaker. There is central vascular congestion promi nent interstitial markings are seen in both lungs similar to prior exam likely chronic. There is a pa renchymal opacity in the right lung base. Mild blunting of both costophrenic angles likely tiny effus ions. There is no pneumothorax. Impression: New airspace opacity in the right lung base likely infiltrate. Prominent interstitial markings in both lungs some of which may be chronic, however interstitial belgica a or infiltrates not excluded. Tiny bilateral pleural effusions. Electronically signed by: Sade Hardy MD (11/13/2020 8:28 AM) [id number]
[2020-11-13] MEDS ORDERED: ceFAZolin SODIUM 2 GM in IV DEXTROSE 5% 50 ML IV ONE (08:45)
[2020-11-13] MEDS ORDERED: DOXYCYCLINE HYCLATE 100 MG in IV DEXTROSE 5% 100 ML IV ONE (08:45)
[2020-11-13] MEDS ORDERED: IV DEXTROSE 5% 50 ML ONE (08:55)
[2020-11-13] MEDS ORDERED: ceFAZolin SODIUM 1 GM VIAL ONE (08:55)
[2020-11-13] MEDS ORDERED: DOXYCYCLINE HYCLATE 100 MG VIAL IV ONE (09:18)
[2020-11-13] MEDS ORDERED: IV DEXTROSE 5% 100 ML IV ONE (09:18)
--- NOTE | 2020-11-13 09:38 | EKG ---
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
[2020-11-13 10:54] LABS: HEMATOCRIT 24.3 % (36.0-47.0); HEMOGLOBIN 7.7 g/dL (12.0-15.5); RED BLOOD COUNT 2.77 x10^6/uL (3.50-5.40); RED CELL DISTRIBUTION WIDTH 17.1 % (11.5-14.5); WHITE BLOOD COUNT 10.6 x10^3/uL (4.0-11.0)
[2020-11-13] MEDS ORDERED: ACETAMINOPHEN 325 MG TABLET PO PRN (11:15)
[2020-11-13] MEDS ORDERED: diphenhydrAMINE ORAL ELIXIR 12.5 MG/5 ML ML PO PRN (11:15)
[2020-11-13 12:34] VITALS: BP 111/57
== END 2020-11-13 12:56 | disposition short-term general hospital (02) ==
LOC: ER 07:01
DX: N93.9 Abnormal uterine and vaginal bleeding, unspecified (principal); J18.1 Lobar pneumonia, unspecified organism; I11.0 Hypertensive heart disease with heart failure; I50.22 Chronic systolic (congestive) heart failure; R79.89 Other specified abnormal findings of blood chemistry; Z85.42 Personal history of malignant neoplasm of other parts of uterus; Z95.0 Presence of cardiac pacemaker; Z93.3 Colostomy status
CPT/HCPCS: 36415; 71045; 80053; 83605; 83880; 84484; 85025; 85027; 85610; 85730; 86850; 86900; 86901; 93005; 96365; 96367; 96375; 96376; 99291; J0690; J3010; J3490; J7040

== ENCOUNTER 2020-12-18 05:26 | Emergency (ER) | payer MEDICARE, OTHER ==
[~2020-12-18] VITALS: Ht 157.5 cm; Wt 117.2 kg
--- NOTE | 2020-12-18 06:15 | PHYS DOC ---
Past History Past Medical History: Cancer, CHF, Hypertension, Other Additional Past Medical Histor: uterine cancer Past Surgical History: Pacemaker, Other Additional Past Surgical Histo: colon resect. with colostomy, pacemaker insertion Smoking: Non-smoker Alcohol Use: None Drug Use: None Adult General Chief Complaint Chief Complaint: VAGINAL BLEEDING HPI HPI Patient is a 70-year-old female presenting for vaginal bleeding. She reports she awoke this morning to urinate and shortly after, she noticed that she started bleeding bright red blood from vagina. She has been bleeding at a brisk rate for past 3 hours prior to arrival. States episode today is similar to episode for which she was seen and evaluated our facility for November 13 that required hospital transfer to [facility] for higher acuity of care. Has history of bleeding like this, states she has significant past medical history for heart failure reduced ejection fraction and uterine cancer that she has been unable to surgically remove due to being a poor surgical candidate. As such, she has been well followed in outpatient setting by primary care physician and UI ARCHITECT specialist at [facility] for her condition. She presented to our ER via EMS as she has history of complicated vaginal bleeding within past 8 months that required her to be life flighted to [facility] for emergent surgical fixation, she reports she thinks she had a ligation procedure of some sort performed in 11/2019 and again at -11/2020 at . Reports since the procedure she has been feeling well and has had minimal vaginal spotting. Reports that she has congestive heart failure with reduced ejection fraction, is status post pacemaker placement, has a previous history of colon resection and current colostomy due to fistula formation, reports all other comorbid conditions have been at baseline. She denies falls, trauma, chest pain, shortness of breath past baseline, nausea, vomiting, diarrhea, constipation, bloody stools, and problems urinating. Review of Systems Review of Systems Fourteen body systems of review of systems have been reviewed. See HPI for pertinent positives and negative responses, other fields all other systems are negative, non-pertinent or non-contributory Allergies Allergies Allergies Coded Allergies Type Severity Reaction Last Updated Verified codeine Allergy Intermediate 01/31/20 Yes nitrofurantoin Allergy Intermediate 04/04/20 Yes prednisone Adverse Reaction Intermediate retains fluid 04/19/20 Yes Physical Exam Physical Exam Constitutional: Well developed, well nourished, no acute distress, non-toxic appearance. HENT: Normocephalic, atraumatic, bilateral external ears normal, oropharynx dry, no oral exudates, nose normal. Eyes: PERRLA, EOMI, conjunctiva normal, no discharge. Neck: Normal range of motion, no tenderness, supple, no stridor. Cardiovascular: Heart rate regular, sinus rhythm, no murmurs rubs or gallops Lungs & Thorax: Bilateral breath sounds clear to auscultation Abdomen: Bowel sounds normal, soft, no tenderness, no masses, no pulsatile masses. Colostomy present and well-appearing with appearing stool in colostomy bag. Nonsurgical abdomen, no peritoneal signs : Disposable underwear saturated in blood, several clots removed, speculum exam performed with unremarkable external visualization of genitalia, vaginal wall atraumatic, vaginal vault with pooling of bright red blood with several sized clots, scant bleeding noted at time of exam Skin: Warm, dry, no erythema, no rash. Large ecchymosis to left forearm without any palpable abnormalities Back: No tenderness, no CVA tenderness. Extremities: No tenderness, no cyanosis, no clubbing, ROM intact, no edema. Neurologic: Alert and oriented X 3, grossly normal motor & sensory function, no focal deficits noted. Psychologic: Affect normal, judgement normal, depressed mood Current Patient Data Vital Signs Vital Signs Date Time Temp Pulse Resp B/P (MAP) Pulse Ox O2 Delivery O2 Flow Rate FiO2 12/18/20 05:26 98.2 85 22 150/75 (100) 98 Room Air Lab Results Laboratory Tests Test 12/18/20 05:50 White Blood Count 10.8 x10^3/uL Red Blood Count 3.47 x10^6/uL Hemoglobin 10.0 g/dL Hematocrit 31.0 % Mean Corpuscular Volume 89 fL Mean Corpuscular Hemoglobin 29 pg Mean Corpuscular Hemoglobin Concent 32 g/dL Red Cell Distribution Width 18.1 % Platelet Count 406 x10^3/uL Neutrophils (%) (Auto) 84 % Lymphocytes (%) (Auto) 8 % Monocytes (%) (Auto) 7 % Eosinophils (%) (Auto) 0 % Basophils (%) (Auto) 1 % Neutrophils # (Auto) 9.0 x10^3uL Lymphocytes # (Auto) 0.9 x10^3/uL Monocytes # (Auto) 0.7 x10^3/uL Eosinophils # (Auto) 0.0 x10^3/uL Basophils # (Auto) 0.1 x10^3/uL Troponin I Quantitative < 0.017 ng/mL TV-Hsv-O-Type Natriuretic Peptide 5343 pg/mL EKG EKG EKG ordered and interpreted by myself at 0630 hrs. as ventricular paced rhythm at 83 bpm, prolonged QRS at 204, prolonged QTC at 505, left axis deviation, no STEMI. This EKG was compared to prior EKG obtained at our facility November 13, 2020 and unchanged Radiology/Procedures Radiology/Procedures EXAM: AP View of the chest DATE: 12/18/2020 6:26 AM INDICATION: Reason: shob / Spl. Instructions: / History: COMPARISON: 11/13/2020 FINDINGS: Cardiac generator pack obscures a portion of the left chest with leads in stable position. The heart is mildly enlarged. Mediastinal and hilar contours are stable. Mild patchy opacities left greater than right lung base likely atelectasis or developing consolidation. No pleural effusion or pneumothorax. IMPRESSION: Mild patchy opacities left greater than right lung base likely atelectasis or developing consolidation. Electronically signed by: Michael Galdamez MD (12/18/2020 6:45 AM) [facility] Heart Score C/O Chest Pain: No HEART Score for Chest Pain: HEART Score for Chest Pain Response (Comments) Value History Moderately Suspicious 1 ECG Nonspecific Repolarizatio 1 Age > 65 2 Risk Factors >3 Risk Factors or Hx CAD 2 Troponin < Normal Limit 0 Total 6 Risk Factors: Risk Factors: DM, Current or recent (<one month) smoker, HTN, HLP, family history of CAD, obesity. Risk Scores: Risk Factors: DM, Current or recent (<one month) smoker, HTN, HLP, family history of CAD, obesity. Course & Med Decision Making Course & Med Decision Making Hemodynamically stable patient with concerning history of uterine cancer and recurrent bleeding requiring surgical intervention, physical exam concerning for mild but ongoing bleeding and high risk patient Comprehensive ER work-up obtained and grossly nonconcerning for any emergent or surgical issues. With that said, given patient's risk and history, patient's UI ARCHITECT at [facility] was contacted and case reviewed. They agreed need for transfer and accepted patient under Dr. Corbin I have updated patient on proposed plan of care that included hospital transfer for admission, she was amenable. Gauze and vaginal pad applied for bleeding as there is no emergent indication for Taylor tamponade etc. all questions and concerns addressed prior to ER transfer via EMS Critical Care Time This patient required critical care. Due to the fact that the patient required a significant amount of one on one physician - patient contact time, ordering and review of studies, arranging urgent treatment with development of a management plan, evaluation of patients response to treatment with frequent reassessments, and discussions with other providers this patient required 40 minutes of critical care time. Critical care time was indicated due to the inherent instability and/or potential for instability in this patient. The critical care time that is allocated to this patient is above and beyond any time spent on any other billable procedures performed on this patient. Dragon Disclaimer Dragon Disclaimer This electronic medical record was generated, in whole or in part, using a voice recognition dictation system. Departure Departure: Impression: Primary Impression: Endometrial carcinoma Additional Impression: CHF (congestive heart failure) Disposition: 02 [facility] ([facility]) Admitting Physician: Other (dr corbin) Condition: STABLE Referrals: LUIS ZHOU MD (PCP) Problem Qualifiers DENA DE LA GARZA DO Dec 18, 2020 06:15
--- NOTE | 2020-12-18 06:33 | EKG ---
[facility] [address] [place] [address] Test Date: 2020-12-18 Test Time: 06:25:57 Pat Name: LUIS PISANO Department: Room: Gender: F Manager Gaming: JUAN DANIEL : 1950 Requested By: DENA DE LA GARZA Order Number: [id number] Reading MD: Measurements Intervals [place] Rate: 83 P: LA: QRS: -90 QRSD: 204 T: 90 QT: 424 QTc: 505 Interpretive Statements IRREGULAR RHYTHM, NO P-WAVE FOUND VENTRICULAR PREMATURE COMPLEX(ES) ABNORMAL LEFT AXIS DEVIATION NON SPECIFIC INTRAVENTRICULAR BLOCK QRS(T) CONTOUR ABNORMALITY CONSISTENT WITH ANTERIOR INFARCT PROBABLY OLD CONSISTENT WITH INFEROLATERAL INFARCT POSSIBLY RECENT ABNORMAL ECG RI6.02 No previous ECG available for comparison
[2020-12-18 06:34] LABS: BASO # 0.1 x10^3/uL (0.0-0.2); BASO % 1 % (0-3); EOS % 0 % (0-3); LYMPH # 0.9 x10^3/uL (1.0-4.8); LYMPH % 8 % (24-48); MEAN CORPUSCULAR HEMOGLOBIN 29 pg (25-35); MEAN CORPUSCULAR HGB CONC 32 g/dL (31-37); MEAN CORPUSCULAR VOLUME 89 fL (79-100); MONO # 0.7 x10^3/uL (0.0-1.1); MONO % 7 % (0-9); NEUT % 84 % (31-73); PLATELET COUNT 406 x10^3/uL (140-400); RED BLOOD COUNT 3.47 x10^6/uL (3.50-5.40); RED CELL DISTRIBUTION WIDTH 18.1 % (11.5-14.5); WHITE BLOOD COUNT 10.8 x10^3/uL (4.0-11.0)
--- NOTE | 2020-12-18 06:47 | RAD ---
EXAM: AP View of the chest DATE: 12/18/2020 6:26 AM INDICATION: Reason: shob / Spl. Instructions: / History: COMPARISON: 11/13/2020 FINDINGS: Cardiac generator pack obscures a portion of the left chest with leads in stable position. The heart is mildly enlarged. Mediastinal and hilar contours are stable. Mild patchy opacities left greater than right lung base likely atelectasis or developing consolidatio n. No pleural effusion or pneumothorax. IMPRESSION: Mild patchy opacities left greater than right lung base likely atelectasis or developing consolidatio n. Electronically signed by: Michael Galdamez MD (12/18/2020 6:45 AM) [facility]
[2020-12-18] MEDS: oxyCODONE/APAP 10/325 1 TAB TABLET PO ONE ×2 (07:35→13:48)
[2020-12-18 13:30] VITALS: BP 123/52
== END 2020-12-18 14:30 | disposition short-term general hospital (02) ==
LOC: ER 05:26
DX: C54.1 Malignant neoplasm of endometrium (principal); I11.0 Hypertensive heart disease with heart failure; I50.9 Heart failure, unspecified; Z95.0 Presence of cardiac pacemaker; Z93.3 Colostomy status; Z88.5 Allergy status to narcotic agent; Z88.8 Allergy status to other drugs, medicaments and biological substances
CPT/HCPCS: 36415; 71045; 83880; 84484; 85025; 86850; 86900; 86901; 93005; 99291-25

== ENCOUNTER 2021-01-11 10:34 | Emergency (ER) | payer MEDICARE, OTHER ==
[~2021-01-11] VITALS: Ht 157.5 cm; Wt 96.2 kg
[2021-01-11 10:39] VITALS: BP 110/80
--- NOTE | 2021-01-11 11:03 | PHYS DOC ---
Past History Past Medical History: Cancer, CHF, Hypertension, Other Additional Past Medical Histor: uterine cancer Past Surgical History: Pacemaker, Other Additional Past Surgical Histo: colon resect. with colostomy, pacemaker insertion Smoking: Non-smoker Alcohol Use: None Drug Use: None Adult General Chief Complaint Chief Complaint: VAGINAL BLEEDING HPI HPI Patient is a 70-year-old female well-known to myself presenting via EMS for vaginal bleeding. She has history of uterine cancer and due to her numerous serious comorbid conditions, is not a surgical or treatment candidate. She was last seen at our facility by myself earlier this month and transferred to [facility] where she seeks all of her care. Decision was made at that time to transfer DNR status patient to hospice/palliative care. She has been home on this type of care and has been doing well but admits yesterday evening having increased bleeding that she reports is 5 times the amount per usual which concerned her. Sneezing and activities which increase intra-abdominal pressure caused increased expulsion of clots and bright red blood which concerned her. She contacted her hospice company this morning as she thought there was a facility she could go to instead of an emergency room for assistance but was unable to get a hold of anybody. She subsequently called EMS not emergently who came and evaluated patient. Given extent of patient's reported blood loss, decision was made to transfer to our facility for evaluation. Patient on arrival is asymptomatic and at baseline health, she is unsure if she is still bleeding, she is just scared and does not know what to do. She does not want any blood work or other invasive measures here today, just wants help and guidance regarding what services she has at her disposal on discharge back home Review of Systems Review of Systems Fourteen body systems of review of systems have been reviewed. See HPI for pertinent positives and negative responses, other fields all other systems are negative, non-pertinent or non-contributory Allergies Allergies Allergies Coded Allergies Type Severity Reaction Last Updated Verified codeine Allergy Intermediate 01/31/20 Yes nitrofurantoin Allergy Intermediate 04/04/20 Yes prednisone Adverse Reaction Intermediate retains fluid 04/19/20 Yes Physical Exam Physical Exam Constitutional: Well developed, well nourished, no acute distress, non-toxic appearance. HENT: Normocephalic, atraumatic, bilateral external ears normal, oropharynx moist, no oral exudates, nose normal. Eyes: PERRLA, EOMI, conjunctiva normal, no discharge. Neck: Normal range of motion, no tenderness, supple, no stridor. Cardiovascular: Heart rate regular, sinus rhythm Lungs & Thorax: Rales present in bilateral lung bases Abdomen: Bowel sounds normal, soft, no tenderness, no masses, no pulsatile masses. Nonsurgical abdomen, no peritoneal signs : External examination of genitalia grossly unremarkable but there is dried blood and remnants of blood clots in patient's pad, there is no obvious/active bleeding from vaginal vault. Patient deferring speculum exam at this time Skin: Warm, dry, no erythema, no rash. Back: No tenderness, no CVA tenderness. Extremities: No tenderness, no cyanosis, no clubbing, ROM intact, no edema. Neurologic: Alert and oriented X 3, grossly normal motor & sensory function, no focal deficits noted. Psychologic: Affect normal, judgement normal, mood normal. Current Patient Data Vital Signs Vital Signs Date Time Temp Pulse Resp B/P (MAP) Pulse Ox O2 Delivery O2 Flow Rate FiO2 01/11/21 10:39 98.2 82 16 110/80 (90) 96 Room Air EKG EKG [] Radiology/Procedures Radiology/Procedures [] Heart Score C/O Chest Pain: N/A Risk Factors: Risk Factors: DM, Current or recent (<one month) smoker, HTN, HLP, family history of CAD, obesity. Risk Scores: Risk Factors: DM, Current or recent (<one month) smoker, HTN, HLP, family hi story of CAD, obesity. Course & Med Decision Making Course & Med Decision Making ABCs unremarkable. Patient is DNR status and on hospice for endometrial carcinoma. She is not wanting any diagnostic study and/or intervention today. Really just here requesting assistance and guidance on care going forward and she has been unable to contact her hospice company that should be providing her care and assisting with activities of daily living at home. Several attempts were made to contact said company without success. Ultimately, joint decision was made to discharge back home. Patient reports having numerous family members who can help care for her and I also disclosed that EMS can be called not emergently to assist with some issues over the weekend until she can make contact with her hospice company. Of course, I disclosed if any concerning signs or symptoms present that she is welcome back in our ER for evaluation. Strict return precautions discussed, all questions and concerns addressed prior to ER departure Vivian Disclaimer Vivian Disclaimer This electronic medical record was generated, in whole or in part, using a voice recognition dictation system. Departure Departure: Impression: Primary Impression: Endometrial carcinoma Additional Impression: Hospice care patient Disposition: HOME / SELF CARE / HOMELESS Condition: STABLE Referrals: LUIS ZHOU MD (PCP) Additional Instructions: As discussed prior to your departure, your vital signs and physical exam were unremarkable. We have honored your hospice status designation and joint decision was made to defer any invasive and/or painful diagnostic studies and/or intervention. We were unable to successfully contact your hospice company to discuss issues today. As such, recommendations were made to return home with family care, utilizing nonemergent 911 EMS services as needed over the weekend with hospice continuation of care starting Wednesday. If any concerning signs or symptoms present prior to outpatient follow-up please do not hesitate to come back for repeat evaluation. It was a pleasure to take care of you and I wish you the best going forward Problem Qualifiers DENA DE LA GARZA DO Jan 11, 2021 11:03
[2021-01-12] MEDS ORDERED: OXYC10TA PO ×2 (16:51→19:24)
[2021-01-12] MEDS ORDERED: OXYC5TAB2 PO (19:10)
[2021-01-12] MEDS ORDERED: FENT-73 TP (19:11)
[2021-01-12] MEDS ORDERED: FURO20TA3 PO (19:17)
[2021-01-12] MEDS ORDERED: MEGE40TA3 PO (19:17)
[2021-01-12] MEDS ORDERED: METO25TA4 PO (19:17)
[2021-01-12] MEDS ORDERED: MECL-75 PO (19:17)
[2021-01-12] MEDS ORDERED: ONDA4TAB7 PO (19:17)
== END 2021-01-11 12:39 | disposition home or self-care (01) ==
LOC: ER 10:34
DX: C54.1 Malignant neoplasm of endometrium (principal); I11.0 Hypertensive heart disease with heart failure; I50.9 Heart failure, unspecified; Z51.5 Encounter for palliative care; Z88.3 Allergy status to other anti-infective agents; Z88.5 Allergy status to narcotic agent
CPT/HCPCS: 99283

== ENCOUNTER 2021-01-12 11:53 | Observation (INO) | payer MEDICARE, OTHER ==
[~2021-01-12] VITALS: Ht 157.5 cm; Wt 96.9 kg
--- NOTE | 2021-01-12 12:19 | PHYS DOC ---
Past History Past Medical History: Cancer, CHF, Hypertension, Other Additional Past Medical Histor: uterine cancer (NATALIIA FERNANDEZ APRN) Past Surgical History: Pacemaker, Other Additional Past Surgical Histo: colon resect. with colostomy, pacemaker insertion (NATALIIA FERNANDEZ APRN) Smoking: Non-smoker Alcohol Use: None Drug Use: None (NATALIIA FERNANDEZ APRN) General Adult EDM: Chief Complaint: VAGINAL BLEEDING HPI: HPI: Patient is a 70-year-old female who presents with vaginal bleeding. Patient was recently diagnosed with uterine cancer. Patient states "I am not wanting any labs or anything done I am just wanting to go to hospice house". "I have already signed out the paperwork for hospice but I do not know what is taking so long". Patient's denying pain. (NATALIIA FERNANDEZ APRN) Review of Systems: Review of Systems: Constitutional: Denies fever or chills Eyes: Denies change in visual acuity HENT: Denies nasal congestion or sore throat Respiratory: Denies cough or shortness of breath Cardiovascular: Denies chest pain or edema GI: Denies abdominal pain, nausea, vomiting, bloody stools or diarrhea /vaginal: Denies dysuria. Reports vaginal bleeding Musculoskeletal: Denies back pain or joint pain Integument: Denies rash Neurologic: Denies headache, focal weakness or sensory changes Endocrine: Denies polyuria or polydipsia Lymphatic: Denies swollen glands Psychiatric: Denies depression or anxiety (NATALIIA FERNANDEZ APRN) Allergies: Allergies: Allergies Coded Allergies Type Severity Reaction Last Updated Verified codeine Allergy Intermediate 01/31/20 Yes nitrofurantoin Allergy Intermediate 04/04/20 Yes prednisone Adverse Reaction Intermediate retains fluid 04/19/20 Yes (NATALIIA FERNANDEZ APRN) Physical Exam: PE: Constitutional: Well developed, well nourished, no acute distress, non-toxic appearance. [] HENT: Normocephalic, atraumatic, bilateral external ears normal, oropharynx moist, no oral exudates, nose normal. [] Eyes: PERRLA, EOMI, conjunctiva normal, no discharge. [] Neck: Normal range of motion, no tenderness, supple, no stridor. [] Cardiovascular:Heart rate regular rhythm, no murmur [] Lungs & Thorax: Bilateral breath sounds clear to auscultation [] Abdomen: Bowel sounds normal, soft, no tenderness, no masses, no pulsatile masses. [] Skin: Warm, dry, no erythema, no rash. [] Back: No tenderness, no CVA tenderness. [] Extremities: No tenderness, no cyanosis, no clubbing, ROM intact, no edema. [] Neurologic: Alert and oriented X 3, normal motor function, normal sensory function, no focal deficits noted. [] Psychologic: Affect normal, judgement normal, mood normal. [] (NATALIIA FERNANDEZ APRN) EKG: EKG: [] (NATALIIA FERNANDEZ APRN) Radiology/Procedures: Radiology/Procedures: [] (NATALIIA FERNANDEZ APRN) Heart Score: C/O Chest Pain: No Risk Factors: Risk Factors: DM, Current or recent (<one month) smoker, HTN, HLP, family history of CAD, obesity. Risk Scores: Score 0 - 3: 2.5% MACE over next 6 weeks - Discharge Home Score 4 - 6: 20.3% MACE over next 6 weeks - Admit for Clinical Observation Score 7 - 10: 72.7% MACE over next 6 weeks - Early Invasive Strategies (NATALIIA FERNANDEZ APRN) Course & Med Decision Making: Course & Med Decision Making Pertinent Labs and Imaging studies reviewed. (See chart for details) [] 70-year-old female presents with vaginal bleeding and diagnosis of uterine cancer. She was seen in the emergency room yesterday for vaginal bleeding and told to return with concerns. Patient is DNR status and is not wanting any diagnostic study and/or intervention today. She is denying any pain or complaints. Patient is requesting assistance and guidance on care going forward and resources for hospice. Ultimately, joint decision was made to admit to hospital for observation and social resource help. I spoke with Dr. Wiseman regarding admission. Dr. Wiseman will accept patient for observation. Patient is appreciative and happy with plan of care. (NATALIIA FERNANDEZ APRN) Course & Med Decision Making I oversaw on the above date of service of this patient. This patient was evaluated, examined, treated, and dispositioned from the emergency department by the mid-level practitioner. I know patient very well, I assisted DRILLING AND PRODUCTION SUPERINTENDENT with management and direction of care of patient while in ER. I reviewed note and agree to findings, plan of care, and disposition as stated. Electronically signed, Dena De La Garza DO (DENA DE LA GARZA DO) Vivian Disclaimer: Vivian Disclaimer: This electronic medical record was generated, in whole or in part, using a voice recognition dictation system. (NATALIIA FERNANDEZ APRN) Departure Departure: Impression: Primary Impression: Uterine cancer Qualified Codes: C55 - Malignant neoplasm of uterus, part unspecified Disposition: ADMITTED INPATIENT Admitting Physician: Charlie Wiseman (NATALIIA FERNANDEZ APRN) Condition: GOOD Referrals: LUIS ZHOU MD (PCP) NATALIIA FERNANDEZ APRN Jan 12, 2021 12:19 DENA DE LA GARZA DO Jan 13, 2021 07:12
[2021-01-12 15:29] VITALS: BP 118/70
[2021-01-12] MEDS ORDERED: OXYC10TA PO ×2 (16:51→19:24)
[2021-01-12 19:01] VITALS: BP 116/72
[2021-01-12] MEDS ORDERED: OXYC5TAB2 PO (19:10)
[2021-01-12] MEDS ORDERED: FENT-73 TP (19:11)
[2021-01-12] MEDS ORDERED: METO25TA4 PO (19:17)
[2021-01-12] MEDS ORDERED: ONDA4TAB7 PO (19:17)
[2021-01-12] MEDS ORDERED: MEGE40TA3 PO (19:17)
[2021-01-12] MEDS ORDERED: FURO20TA3 PO (19:17)
[2021-01-12] MEDS ORDERED: MECL-75 PO (19:17)
[2021-01-12] MEDS ORDERED: MECLIZINE 12.5 MG TABLET. PO PRN (19:45)
[2021-01-12] MEDS ORDERED: ONDANSETRON ODT 4 MG TAB.RAPDIS PO PRN (19:45)
[2021-01-12] MEDS: ACETAMINOPHEN 500 MG TABLET PO SCH (20:06)
[2021-01-12] MEDS: oxyCODONE ER 20 MG TAB.ER.12H PO SCH (20:07)
[2021-01-12] MEDS: MEGESTROL 40 MG TABLET. PO SCH (20:07)
[2021-01-12] MEDS: METOPROLOL TART IMMED RELEASE 25 MG TABLET. PO SCH (20:08)
[2021-01-13 05:07] VITALS: BP 117/69
[2021-01-13] MEDS: oxyCODONE ER 20 MG TAB.ER.12H PO SCH (06:04)
[2021-01-13 06:53] LABS: CALCIUM 7.9 mg/dL (8.5-10.1); CREATININE 1.5 mg/dL (0.6-1.0); GFR 34.2; POTASSIUM 4.2 mmol/L (3.5-5.1)
[2021-01-13] MEDS: ACETAMINOPHEN 500 MG TABLET PO SCH (08:26)
[2021-01-13] MEDS: MEGESTROL 40 MG TABLET. PO SCH (08:27)
[2021-01-13] MEDS: METOPROLOL TART IMMED RELEASE 25 MG TABLET. PO SCH (08:28)
[2021-01-13] MEDS ORDERED: CHOLECALCIFEROL (VITAMIN D3) 1,000 UNIT TABLET PO SCH (09:00)
[2021-01-13] MEDS ORDERED: FUROSEMIDE 20 MG TABLET PO SCH (09:00)
[2021-01-13] MEDS ORDERED: POLYETHYLENE GLYCOL 3350 17 GM PACKET. PO SCH (09:00)
[2021-01-13] MEDS ORDERED: ALLOPURINOL 100 MG TABLET. PO SCH (09:00)
[2021-01-13] MEDS ORDERED: fentaNYL 12MCG/HR 1 PATCH PATCH TD SCH (09:00)
[2021-01-13] MEDS ORDERED: POTASSIUM CHLORIDE 20 MEQ TABLET.ER. PO SCH (09:00)
--- NOTE | 2021-01-13 11:39 | HP ---
ATTENDING PHYSICIAN: Dr. Wiseman. CHIEF COMPLAINT: The patient cannot manage for herself. She has metastatic uterine cancer. HISTORY OF PRESENT ILLNESS: The patient is a 70-year-old female, well known to us from previous admission. She has end-stage terminal uterine cancer. She is not a surgical candidate. She was slated to have home hospice. She cannot manage for herself. She was admitted then overnight for pain control as well as a transfer to a long-term care facility. PAST MEDICAL HISTORY: Significant for morbid obesity, endometrial cancer, chronic stasis dermatitis, hypertension and generalized debilitation. She also has chronic pain. CURRENT MEDICATIONS: Include allopurinol, cholecalciferol, fentanyl patches every 3 days but only the 12.5 mcg of, meclizine, Megace, metoprolol, ondansetron, oxycodone extended release, MiraLax and potassium supplementation. ALLERGIES: She has allergies to CODEINE, NITROFURANTOIN, PREDNISONE, exact reaction is unclear. FAMILY HISTORY: Noncontributory. REVIEW OF SYSTEMS: Significant for generalized pain. She requires a certain dose of narcotics. She has been determined to have inoperable cancer. All other systems reviewed and turned to be negative. She is very large and appreciative. PHYSICAL EXAMINATION: GENERAL: When I saw her, this is a pleasant elderly female. INITIAL VITAL SIGNS: Show blood pressure 117/69, pulse is 77 and regular, oxygen saturation 98% on room air. She is afebrile. HEENT: Head is without trauma. Pupils are reactive. Sclerae nonicteric. Oropharynx is clear. NECK: Supple, no bruits. LUNGS: Clear. CARDIOVASCULAR: Showed regular heart tones. No gallop. ABDOMEN: Soft, obese, protuberant. I did not examine her pelvic area due to pain. EXTREMITIES: Show trace edema. NEUROLOGIC: Function, she is bedridden, nonambulatory, but she is alert. Speech is fluent. Hand Laster intact and symmetrical. LABORATORY STUDIES: The chemistry panel, creatinine is 1.5 mg/dL. Electrolytes within normal range. She refused other blood tests. ASSESSMENT: 1. A 70-year-old female with metastatic uterine cancer. 2. Chronic pain syndrome. 3. Morbid obesity. 4. Generalized debilitation. She cannot take care for herself since she lives alone. PLAN: 1. Observation status. 2. Continue home meds. 3. leasing property manager will look at the placement with hospice care. RAUL DR: Rossy TID: [id number] CC: LUIS ZHOU MD
[2021-01-13 12:18] VITALS: BP 118/71
--- NOTE | 2021-01-13 14:33 | DS ---
DATE OF DISCHARGE: 01/13/2021 ATTENDING PHYSICIAN: Dr. Wiseman. FINAL DISCHARGE DIAGNOSES: 1. Terminal endometrial carcinoma. 2. Morbid obesity. 3. Chronic pain syndrome. 4. Chronic kidney disease. 5. History of congestive heart failure, compensated. HISTORY AND PHYSICAL: The patient is a 70, is well known to us from previous admission. She has been living alone. She cannot take care of herself. Her endometrial cancer has progressed. She is inoperable. She needs hospice care. She was sent to the hospital for further help and placement. PHYSICAL EXAMINATION: Please see my dictated note. PERTINENT LABORATORY AND X-RAY STUDIES: On the database. COURSE IN THE HOSPITAL: The patient was admitted. recycling program manager contacted the facility in [place], [place]. Arrangements were made for the next day for the patient to go there with hospice care. Her home meds are unchanged. We made sure she will have her OxyContin 20 mg b.i.d., Duragesic 12.5 mcg patch every 3 days, potassium, MiraLax, meclizine, Lasix, vitamin D3, allopurinol and megestrol doses unchanged. She was discharged in stable condition with explicit drug and followup care at the [facility]. Her prognosis is terminal. RAUL DR: Rossy TID: [id number] CC: LUIS ZHOU MD
== END 2021-01-13 13:32 ==
LOC: ER 11:53 → 1 SOUTH 13:39 → ER 15:20
PROVIDERS: ADMIT Hospitalist; ATTEND Hospitalist
DX: C54.1 Malignant neoplasm of endometrium (principal); I13.0 Hypertensive heart and chronic kidney disease with heart failure and stage 1 through stage 4 chronic kidney disease, or unspecified chronic kidney disease; I50.9 Heart failure, unspecified; N18.9 Chronic kidney disease, unspecified; G89.4 Chronic pain syndrome; E66.01 Morbid (severe) obesity due to excess calories; R53.81 Other malaise; Z95.0 Presence of cardiac pacemaker; Z51.5 Encounter for palliative care; Z85.42 Personal history of malignant neoplasm of other parts of uterus; Z93.3 Colostomy status; Z68.39 Body mass index [BMI] 39.0-39.9, adult
CPT/HCPCS: 36415; 80048; 99284; G0378; G0379